=== PATIENT | male | born 1955 | race Hispanic/Latino ===

== ENCOUNTER 2017-02-06 15:46 | Inpatient (IN) | payer MEDICARE ==
[2017-02-06] MEDS ORDERED: Sodium Chloride 0.9% 1,000 ML IV SCH ×2 (16:45→18:00)
--- NOTE | 2017-02-06 17:04 | ED PDOC ---
HPI: General Adult Time Seen by Provider: 02/06/17 16:16 Chief Complaint (Nursing): Shortness Of Breath History Per: Patient History/Exam Limitations: no limitations Additional Complaint(s): Patient is a 61 yr old male who states that he was recently admitted to [facility] to the psych harman and while on psych harman, he was transferred to the medical unit for pneumonia. Pt left [facility] a couple of days ago; was given prescriptions (antibiotics) but did not fill them. Patient presents to the ED today c/o wanting to hurt himself (says he doesn't feel safe and when walking over bridge today, he did not see any cars below so he did not jump) and hearing voices. Patient is also c/o some SOB, cough with green phlegm and left sided chest pain when coughs. Patient had a temperature of 103F 2 days ago. Pt is not on his psych meds. Pt states that his last drink was a couple of hours ago. Pt also states that he has not taken his seizure medication (Dilantin) for a while. PMD: None Past Medical History Reviewed: Historical Data, Nursing Documentation, Vital Signs Vital Signs: Last Vital Signs Temp 98.2 F 02/06/17 18:28 Pulse 92 H 02/06/17 18:28 Resp 20 02/06/17 18:28 BP 110/66 02/06/17 18:28 Pulse Ox 95 02/06/17 18:37 - Medical History PMH: Anxiety, Arthritis, Bipolar Disorder, CVA, Depression, Hypercholesterolemia , Paranoia, Post Traumatic Stress Disorder, Seizures Denies: Diabetes Comment Only: Schizophrenia (per old chart but pt denies) - Surgical History Surgical History: Appendectomy, Endoscopy, Tonsillectomy - Family History Family History: States: Other Other Family History: Cancer - Social History Current smoker - smoking cessation education provided: No Alcohol: Social - Immunization History Hx Tetanus Toxoid Vaccination: Yes Hx Influenza Vaccination: Yes Hx Pneumococcal Vaccination: No - Home Medications Home Medications: Ambulatory Orders Medication Instructions Recorded Escitalopram [Lexapro] 10 mg PO DAILY #30 tab 02/06/17 Gabapentin [Neurontin] 300 mg PO TID #90 cap 02/06/17 Levofloxacin [Levaquin] 750 mg PO DAILY #5 tablet 02/06/17 Multivitamins [Hexavitamin] 1 tab PO DAILY tab 02/06/17 QUEtiapine [SEROquel] 200 mg PO HS #30 tab 02/06/17 QUEtiapine [Seroquel] 100 mg PO BRK #30 tab 02/06/17 Thiamine [Vitamin B1 Tab] 100 mg PO DAILY tab 02/06/17 - Allergies Allergies/Adverse Reactions: Allergies Allergy/AdvReac Type Severity Reaction Status Date / Time Penicillins Allergy convulsions Verified 10/12/16 12:35 Review of Systems Constitutional: Positive for: Fever Cardiovascular: Positive for: Chest Pain Respiratory: Positive for: Cough, Shortness of Breath Gastrointestinal: Negative for: Vomiting Physical Exam - Reviewed Nursing Documentation Reviewed: Yes Vital Signs Reviewed: Yes - Physical Exam Appears: Positive for: Well, Non-toxic Head Exam: Positive for: ATRAUMATIC Skin: Positive for: Normal Color Eye Exam: Positive for: Normal appearance Neck: Positive for: Normal Cardiovascular/Chest: Positive for: Regular Rate, Rhythm, Tachycardia Respiratory: Positive for: Other (decreased breath sounds to right mid lung field; also with decreased breath sounds left lung base) Gastrointestinal/Abdominal: Positive for: Normal Exam, Bowel Sounds, Soft Back: Positive for: Normal Inspection Rectal: Positive for: Deferred Extremity: Positive for: Normal ROM Lymphatic: Positive for: Deferred Neurologic/Psych: Positive for: Alert. Negative for: Motor/Sensory Deficits - Laboratory Results Result Diagrams: 02/06/17 17:20 02/06/17 17:20 - ECG O2 Sat by Pulse Oximetry: 95 Medical Decision Making Medical Decision Making: Initial Impression: Bipolar disorder with suicidality; Pneumonia -- but off antibiotics Initial Plan: Will check labs, crisis eval, one to one Progress Notes: 6:43 PM-Pt seen by crisis; recommends 1:1 for suicidality. Lactate 2.2--meets criteria for severe sepsis--will need to be admitted to medicine with a 1:1. Psych consult ordered. Dr. Nolan is here in the ED and agrees to admitting the patient to his service. Dr. Nolan is at bedside now evaluating the pt. Disposition - Clinical Impression Clinical Impression: Suicidal ideation, Severe sepsis, Pneumonia, Seizure disorder - Patient ED Disposition Is Patient to be Admitted: Yes - Disposition Disposition Time: 18:42 Condition: FAIR - Pt Status Changed To: Hospital Disposition Of: Inpatient - Admit Certification Admit to Inpatient:: After my assessment, the patient will require hospitalization for at least two midnights. This is because of the severity of symptoms shown, intensity of services needed, and/or the medical risk in this patient being treated as an outpatient.
[2017-02-06 17:25] LABS: BASO # 0.1 K/uL (0.0-0.2); BASO % 0.9 % (0.0-2.0); EOS # 0.3 K/uL (0.0-0.7); EOS % 2.6 % (0.0-4.0); HEMATOCRIT 39.1 % (35.0-51.0); LYMPH % 15.1 % (20.0-40.0); MEAN CELL VOLUME 93.3 fl (80.0-94.0); MEAN CORPUSCULAR HEMOGLOBIN 31.4 pg (27.0-31.0); MEAN CORPUSCULAR HGB CONC 33.7 g/dL (33.0-37.0); MEAN PLATELET VOLUME 7.3 fl (7.2-11.7); MONO # 1.1 K/uL (0.0-0.8); MONO % 8.3 % (0.0-10.0); NEUT # 9.5 K/uL (1.8-7.0); NEUT % 73.1 % (50.0-75.0); RED CELL DISTRIBUTION WIDTH 15.2 % (11.5-14.5)
[2017-02-06 17:36] LABS: ALCOHOL SERUM 223 mg/dl (0-10); ALKALINE PHOSPHATASE 103 U/L (38-126); ALT/SGPT 45 U/L (21-72); AST/SGOT 54 U/L (17-59); BILIRUBIN,TOTAL 0.2 mg/dl (0.2-1.3); BLOOD UREA NITROGEN 11 mg/dl (9-20); CALCIUM 9.1 mg/dL (8.4-10.2); CARBON DIOXIDE 21 mmol/L (22-30); CHLORIDE 108 mmol/L (98-107); GFR AFRICAN-AMERICAN > 60; GLUCOSE,RANDOM 102 mg/dL (75-110); POTASSIUM 4.1 MMOL/L (3.6-5.0); SODIUM 142 mmol/l (132-148); TOTAL PROTEIN 8.2 G/DL (6.3-8.2)
[2017-02-06 17:49] LABS: VENOUS BLOOD GAS BASE EXCESS -2.8 mmol/L (0.0-2.0); VENOUS BLOOD GAS PCO2 44 mmHg (40-60); VENOUS BLOOD PH 7.33 (7.32-7.43)
[2017-02-06] MEDS ORDERED: Ciprofloxacin 400mg/200ml D5W 400 MG/200 ML BAG IVPB ONE (18:05)
[2017-02-06] MEDS ORDERED: Ciprofloxacin 400mg/200ml D5W 400 MG/200 ML BAG IVPB STA (18:05)
[2017-02-06] MEDS ORDERED: Aztreonam 2 GM in Sodium Chloride 0.9% 100 ML IVPB STA (18:05)
[2017-02-06] MEDS ORDERED: Phenytoin 100 mg/2 ml Inj IVP STA ×2 (18:27→20:01)
[2017-02-06 19:30] VITALS: BMI 25.8
[2017-02-06] MEDS ORDERED: Phenytoin 100 mg/2 ml Inj IVPB STA (19:56)
[2017-02-06] MEDS ORDERED: PHENYTOIN IVP ONE (20:15)
[2017-02-06] MEDS ORDERED: SODIUM CHLORIDE 0.9% IVP ONE (20:15)
[2017-02-06 21:11] LABS: VENOUS BLOOD GAS BASE EXCESS -2.6 mmol/L (0.0-2.0); VENOUS BLOOD GAS PCO2 46 mmHg (40-60); VENOUS BLOOD PH 7.32 (7.32-7.43)
[2017-02-06] MEDS: Sodium Chloride 0.45% 1,000 ML IV SCH (23:35)
--- NOTE | 2017-02-07 00:19 | CP.PCM.PN ---
Subjective - Date & Time of Evaluation Date of Evaluation: 02/06/17 Time of Evaluation: 17:30 Objective - Vital Signs/Intake and Output Vital Signs (last 24 hours): Temp Pulse Resp BP Pulse Ox 98.2 F 88 20 114/69 92 L 02/06/17 22:43 02/06/17 22:43 02/06/17 22:43 02/06/17 22:43 02/06/17 22:10 - Medications Medications: Current Medications Chlordiazepoxide (Librium) 25 mg PO Q8 [facility] OF [facility] Enoxaparin Sodium (Lovenox) 40 mg SC DAILY [facility] PRN Reason: Protocol Escitalopram Oxalate (Lexapro) 10 mg PO DAILY [facility] Gabapentin (Neurontin) 300 mg PO TID ON [facility] Sodium Chloride (Sodium Chloride 0.45%) 1,000 mls @ 100 mls/hr IV .Q10H ON [facility] OF [facility] Stop: 02/07/17 23:01 Last Admin: 02/06/17 23:35 Dose: 100 mls/hr Aztreonam 1 gm/ Sodium (Chloride) 100 mls @ 100 mls/hr IVPB Q8 [facility] Azithromycin 500 mg/ Sodium (Chloride) 250 mls @ 250 mls/hr IVPB DAILY [facility] Lorazepam (Ativan) 2 mg IVP Q6 PRN PRN Reason: Seizure activity Multivitamins/Minerals (Therapeutic-M Tab) 1 tab PO DAILY [facility] Phenytoin Sodium (Dilantin) 100 mg PO TID [facility] Quetiapine Fumarate (Seroquel) 100 mg PO BRK [facility] Quetiapine Fumarate (Seroquel) 200 mg PO HS [facility] Last Admin: 02/06/17 23:34 Dose: 200 mg Thiamine HCl (Vitamin B1 Tab) 100 mg PO DAILY [facility]
--- NOTE | 2017-02-07 00:21 | CP.PCM.HP ---
Past Patient History - Infectious Disease Hx of Infectious Diseases: None - Tetanus Immunizations Tetanus Immunization: Unknown - Past Medical History & Family History Past Medical History?: Yes - Past Social History Alcohol: Social - CARDIAC Hx Cardiac Disorders: Yes - PULMONARY Hx Respiratory Disorders: Yes - NEUROLOGICAL Hx Seizures: Yes - HEENT Hx HEENT Problems: No - RENAL Hx Chronic Kidney Disease: No - ENDOCRINE/METABOLIC Hx Endocrine Disorders: No - HEMATOLOGICAL/ONCOLOGICAL Hx Human Immunodeficiency Virus (HIV): No - INTEGUMENTARY Hx Dermatological Problems: No (no bite berger 02-03-2017) Other/Comment: has bite berger on upper exts from "ants". sts [place] and woke up with ants on his arms. sts it is itchy. - MUSCULOSKELETAL/RHEUMATOLOGICAL Hx Arthritis: Yes - GASTROINTESTINAL Hx Gastrointestinal Disorders: Yes Hx Bowel Surgery: Yes (from [email or web address] HX Swallowing Problems: Yes Other/Comment: hep c - GENITOURINARY/GYNECOLOGICAL Hx Sexually Transmitted Disorders: No - PSYCHIATRIC Hx Psychophysiologic Disorder: Yes - SURGICAL HISTORY Hx Appendectomy: Yes Hx Tonsillectomy: Yes - ANESTHESIA Hx Anesthesia: Yes Hx Anesthesia Reactions: No Hx Malignant Hyperthermia: No Meds Allergies/Adverse Reactions: Allergies Allergy/AdvReac Type Severity Reaction Status Date / Time Penicillins Allergy convulsions Verified 10/12/16 12:35 Results - Vital Signs Recent Vital Signs: Last Vital Signs Temp 98.2 F 02/06/17 22:43 Pulse 88 02/06/17 22:43 Resp 20 02/06/17 22:43 BP 114/69 02/06/17 22:43 Pulse Ox 92 L 02/06/17 22:10 - Labs Result Diagrams: 02/06/17 17:20 02/06/17 17:20 Labs: Laboratory Results - last 24 hr 02/06/17 21:09 pO2 23 L VBG pH 7.32 VBG pCO2 46 VBG HCO3 21.2 VBG Total CO2 25.1 VBG O2 Sat (Calc) 43.1 VBG Base Excess -2.6 L VBG Potassium 3.6 Sodium 143.0 Chloride 112.0 H Glucose 86 Lactate 1.5 FiO2 21.0 Venous Blood Potassium 3.6
[2017-02-07] MEDS: Aztreonam 1 GM in Sodium Chloride 0.9% 100 ML IVPB SCH ×3 (00:51→16:00)
--- NOTE | 2017-02-07 07:54 | RAD ---
PROCEDURE: CHEST RADIOGRAPH, 1 VIEW HISTORY: SOB; diagnosed w/ pneumonia recently but left AMA COMPARISON: None available. FINDINGS: LUNGS: Small left lower lobe infiltrate. PLEURA: No pneumothorax or pleural fluid seen. CARDIOVASCULAR: Normal. OSSEOUS STRUCTURES: No significant abnormalities. VISUALIZED UPPER ABDOMEN: Normal. OTHER FINDINGS: None. IMPRESSION: Small left lower lobe infiltrate.
[2017-02-07 08:27] LABS: BASO # 0.1 K/uL (0.0-0.2); EOS # 0.4 K/uL (0.0-0.7); EOS % 4.6 % (0.0-4.0); LYMPH # 1.5 K/uL (1.0-4.3); LYMPH % 20.4 % (20.0-40.0); MEAN CELL VOLUME 92.8 fl (80.0-94.0); MEAN CORPUSCULAR HEMOGLOBIN 31.7 pg (27.0-31.0); MEAN CORPUSCULAR HGB CONC 34.2 g/dL (33.0-37.0); MEAN PLATELET VOLUME 7.5 fl (7.2-11.7); MONO # 0.8 K/uL (0.0-0.8); MONO % 10.6 % (0.0-10.0); NEUT # 4.8 K/uL (1.8-7.0); NEUT % 63.4 % (50.0-75.0); NRBC % 0.1 % (0.0-0.0); RED CELL DISTRIBUTION WIDTH 15.2 % (11.5-14.5); WHITE BLOOD COUNT 7.6 K/uL (4.8-10.8)
[2017-02-07 08:36] LABS: BLOOD UREA NITROGEN 9 mg/dl (9-20); CALCIUM 8.8 mg/dL (8.4-10.2); CARBON DIOXIDE 23 mmol/L (22-30); CHLORIDE 108 mmol/L (98-107); GFR AFRICAN-AMERICAN > 60; GLUCOSE,RANDOM 89 mg/dL (75-110); SODIUM 141 mmol/l (132-148)
[2017-02-07] MEDS ORDERED: Patient's Own Med (Multivitamins [Hexavitamin] 1 TAB) PO SCH (09:00)
[2017-02-07 09:02] LABS: THYROID STIMULATING HORMONE 0.95 mIU/ML (0.46-4.68)
[2017-02-07] MEDS: Enoxaparin 40 mg Syringe SC SCH (09:38)
[2017-02-07] MEDS: Multivitamin With Minerals Tab PO SCH (09:39)
[2017-02-07] MEDS: Sodium Chloride 0.45% 1,000 ML IV SCH ×2 (09:39→18:17)
[2017-02-07] MEDS: Azithromycin 500 MG in Sodium Chloride 0.9% 250 ML IVPB SCH (09:40)
--- NOTE | 2017-02-07 16:34 | CP.PCM.PN ---
Subjective - Date & Time of Evaluation Date of Evaluation: 02/07/17 Time of Evaluation: 16:30 - Subjective Subjective: ID NOTE CHART REVIEWED ,LABS ORDERED HAVE ADDED CLINDAMYCIN TO RX WILL AWAIT F/U LABS AND CULTURES FOR FURTHER RX Objective - Vital Signs/Intake and Output Vital Signs (last 24 hours): Temp Pulse Resp BP Pulse Ox 98.1 F 81 18 97/58 L 95 02/07/17 13:00 02/07/17 13:00 02/07/17 13:00 02/07/17 13:00 02/07/17 13:00 - Medications Medications: Current Medications Chlordiazepoxide (Librium) 25 mg PO Q8 [facility] Last Admin: 02/07/17 09:47 Dose: 25 mg Enoxaparin Sodium (Lovenox) 40 mg SC DAILY [facility] PRN Reason: Protocol Last Admin: 02/07/17 09:38 Dose: 40 mg Escitalopram Oxalate (Lexapro) 10 mg PO DAILY [facility] Last Admin: 02/07/17 09:38 Dose: 10 mg Gabapentin (Neurontin) 300 mg PO TID [facility] Last Admin: 02/07/17 12:10 Dose: 300 mg Sodium Chloride (Sodium Chloride 0.45%) 1,000 mls @ 100 mls/hr IV .Q10H [facility] Stop: 02/07/17 23:01 Last Admin: 02/07/17 09:39 Dose: 100 mls/hr Aztreonam 1 gm/ Sodium (Chloride) 100 mls @ 100 mls/hr IVPB Q8 [facility] Last Admin: 02/07/17 09:37 Dose: 100 mls/hr Azithromycin 500 mg/ Sodium (Chloride) 250 mls @ 250 mls/hr IVPB DAILY [facility] Last Admin: 02/07/17 09:40 Dose: 250 mls/hr Clindamycin Phosphate 600 mg/ (Sodium Chloride) 104 mls @ 104 mls/hr IVPB Q8 [facility] Lorazepam (Ativan) 2 mg IVP Q6 PRN PRN Reason: Seizure activity Multivitamins/Minerals (Therapeutic-M Tab) 1 tab PO DAILY [facility] Last Admin: 02/07/17 09:39 Dose: 1 tab Phenytoin Sodium (Dilantin) 100 mg PO TID [facility] Last Admin: 02/07/17 12:10 Dose: 100 mg Quetiapine Fumarate (Seroquel) 100 mg PO BRK [facility] Last Admin: 02/07/17 09:00 Dose: 100 mg Quetiapine Fumarate (Seroquel) 200 mg PO HS [facility] Last Admin: 02/06/17 23:34 Dose: 200 mg Thiamine HCl (Vitamin B1 Tab) 100 mg PO DAILY [facility] Last Admin: 02/07/17 09:39 Dose: 100 mg - Labs Labs: 02/07/17 06:00 02/07/17 06:00
[2017-02-07] MEDS: Clindamycin 600 MG in Sodium Chloride 0.9% 100 ML IVPB SCH (16:55)
--- NOTE | 2017-02-07 17:25 | CP.PCM.PN ---
Subjective - Date & Time of Evaluation Date of Evaluation: 02/07/17 Time of Evaluation: 17:30 Objective - Vital Signs/Intake and Output Vital Signs (last 24 hours): Temp Pulse Resp BP Pulse Ox 98.4 F 80 18 106/62 98 02/07/17 16:00 02/07/17 16:00 02/07/17 16:00 02/07/17 16:00 02/07/17 16:00 - Medications Medications: Current Medications Chlordiazepoxide (Librium) 25 mg PO Q8 [facility] Last Admin: 02/07/17 16:54 Dose: 25 mg Enoxaparin Sodium (Lovenox) 40 mg SC DAILY [facility] PRN Reason: Protocol Last Admin: 02/07/17 09:38 Dose: 40 mg Escitalopram Oxalate (Lexapro) 10 mg PO DAILY [facility] Last Admin: 02/07/17 09:38 Dose: 10 mg Gabapentin (Neurontin) 300 mg PO TID [facility] Last Admin: 02/07/17 16:52 Dose: 300 mg Sodium Chloride (Sodium Chloride 0.45%) 1,000 mls @ 100 mls/hr IV .Q10H [facility] Stop: 02/07/17 23:01 Last Admin: 02/07/17 09:39 Dose: 100 mls/hr Aztreonam 1 gm/ Sodium (Chloride) 100 mls @ 100 mls/hr IVPB Q8 [facility] Last Admin: 02/07/17 16:00 Dose: 100 mls/hr Azithromycin 500 mg/ Sodium (Chloride) 250 mls @ 250 mls/hr IVPB DAILY [facility] Last Admin: 02/07/17 09:40 Dose: 250 mls/hr Clindamycin Phosphate 600 mg/ (Sodium Chloride) 104 mls @ 104 mls/hr IVPB Q8 [facility] Last Admin: 02/07/17 16:55 Dose: 104 mls/hr Lorazepam (Ativan) 2 mg IVP Q6 PRN PRN Reason: Seizure activity Multivitamins/Minerals (Therapeutic-M Tab) 1 tab PO DAILY [facility] Last Admin: 02/07/17 09:39 Dose: 1 tab Phenytoin Sodium (Dilantin) 100 mg PO TID [facility] Last Admin: 02/07/17 16:52 Dose: 100 mg Quetiapine Fumarate (Seroquel) 100 mg PO BRK [facility] Last Admin: 02/07/17 09:00 Dose: 100 mg Quetiapine Fumarate (Seroquel) 200 mg PO [facility] Last Admin: 02/06/17 23:34 Dose: 200 mg Thiamine HCl (Vitamin B1 Tab) 100 mg PO DAILY [facility] Last Admin: 02/07/17 09:39 Dose: 100 mg - Labs Labs: 02/07/17 06:00 02/07/17 06:00
[2017-02-08] MEDS: Clindamycin 600 MG in Sodium Chloride 0.9% 100 ML IVPB SCH ×3 (00:23→17:37)
[2017-02-08] MEDS: Aztreonam 1 GM in Sodium Chloride 0.9% 100 ML IVPB SCH ×3 (01:44→16:31)
[2017-02-08] MEDS: Multivitamin With Minerals Tab PO SCH (08:24)
[2017-02-08] MEDS: Enoxaparin 40 mg Syringe SC SCH (08:24)
--- NOTE | 2017-02-08 08:56 | CARD ---
APPROVED REPORT EKG Measurement Heart [id number] <Conclusion> Sinus tachycardia Minimal voltage criteria for LVH, may be normal variant Borderline ECG
--- NOTE | 2017-02-08 09:43 | CP.PCM.CON ---
History of Present Illness - History of Present Illness History of Present Illness: CC: Psychiatry consult called for evaluation of depression and suicidal ideation HPI: 61 y/o male, w/ self reported h/o bipolar disorder, presents w/ active PNA, depressed mood, suicidal ideation w/ plan and auditory hallucinations. During initial ER assessment patient reported that he was walking toward [place] and when [place] was [place] he felt like jumping but when he look down he noticed that it was no cars, for him to jump in front of the cars. Pt. reports feeling very depressed, having auditory hallucinations of someone laughing, denied commands. He continues to report active suicidal ideation and is seeking treatment. He reports a history of yony in the past, but denies current manic symptoms. He reports chronic severe alcohol abuse and would like help with ETOH cessation. PPHx: Pt. was admitted at [facility] from February 03 thru Feb 06 2017. Multiple psychiatric admission and rehabilitations. Pt. was admitted to psych > 20 times in the past and he admits to 3 suicide attempts in the past PMHx: Hepatitis C, Arthritis, Chronic pain All: PCN FHx: Mother w/ Alzheimer dz, Father with "mood problems" and Brother with mental retardation. SHx: Father of 3 adults children that have no contact with patient for the past 10 years. No close family as patient stated he have two siblings that also have no contact with patient for many years. Daily ETOH use (1 quart vodka a day + beer). Denies drugs/cig use. Legal charges in the past, such as DWI and possession of stolen property. On SSD. MSE: A + O x 3, calm/cooperative. Good eye contact. psychomotor normal. speech normal. thought process-linear coherent. mood- depressed, affect- constricted/ depressed. +AH of laughing. No VH. +SI w/plan. No HI. Fair I/J. Impression: 61 yo male w/ Bipolar disorder w/ psychosis vs. MDD w/ psychosis, reporting depression and auditory hallucinations, continues to report active suicidal ideation w/ plan, requires inpatient psychiatric admission for treatment and stabilization when he is medically stable. Recommendations: -1:1 for safety as the patient is reporting active suicidal ideation w/ plan -Voluntary admission to psychiatry when he is medically stable -Change Seroquel to 400 mg PO HS -Stop Lexapro as the patient reports that he does not normally take this medications Past Patient History - Infectious Disease Hx of Infectious Diseases: None - Tetanus Immunizations Tetanus Immunization: Unknown - Past Medical History & Family History Past Medical History?: Yes - Past Social History Alcohol: Social - CARDIAC Hx Cardiac Disorders: Yes - PULMONARY Hx Respiratory Disorders: Yes - NEUROLOGICAL Hx Seizures: Yes - HEENT Hx HEENT Problems: No - RENAL Hx Chronic Kidney Disease: No - ENDOCRINE/METABOLIC Hx Endocrine Disorders: No - HEMATOLOGICAL/ONCOLOGICAL Hx Human Immunodeficiency Virus (HIV): No - INTEGUMENTARY Hx Dermatological Problems: No (no bite berger 02-03-2017) Other/Comment: has bite berger on upper exts from "ants". sts [place] and [place] with ants on his arms. sts it is itchy. - MUSCULOSKELETAL/RHEUMATOLOGICAL Hx Arthritis: Yes - GASTROINTESTINAL Hx Gastrointestinal Disorders: Yes Hx Bowel Surgery: Yes (from [facility]) HX Swallowing Problems: Yes Other/Comment: hep c - GENITOURINARY/GYNECOLOGICAL Hx Sexually Transmitted Disorders: No - PSYCHIATRIC Hx Psychophysiologic Disorder: Yes - SURGICAL HISTORY Hx Appendectomy: Yes Hx Tonsillectomy: Yes - ANESTHESIA Hx Anesthesia: Yes Hx Anesthesia Reactions: No Hx Malignant Hyperthermia: No Meds Allergies/Adverse Reactions: Allergies Allergy/AdvReac Type Severity Reaction Status Date / Time Penicillins Allergy convulsions Verified 10/12/16 12:35 - Medications Medications: Current Medications Chlordiazepoxide (Librium) 25 mg PO Q8 [facility] Last Admin: 02/08/17 08:23 Dose: 25 mg Enoxaparin Sodium (Lovenox) 40 mg SC DAILY [facility] PRN Reason: Protocol Last Admin: 02/08/17 08:24 Dose: 40 mg Escitalopram Oxalate (Lexapro) 10 mg PO DAILY [facility] Last Admin: 02/08/17 08:24 Dose: 10 mg Gabapentin (Neurontin) 300 mg PO TID [facility] Last Admin: 02/08/17 08:24 Dose: 300 mg Aztreonam 1 gm/ Sodium (Chloride) 100 mls @ 100 mls/hr IVPB Q8 [facility] Last Admin: 02/08/17 08:23 Dose: 100 mls/hr Azithromycin 500 mg/ Sodium (Chloride) 250 mls @ 250 mls/hr IVPB DAILY [facility] Last Admin: 02/07/17 09:40 Dose: 250 mls/hr Clindamycin Phosphate 600 mg/ (Sodium Chloride) 104 mls @ 104 mls/hr IVPB Q8 [facility] Last Admin: 02/08/17 09:26 Dose: 104 mls/hr Lorazepam (Ativan) 2 mg IVP Q6 PRN PRN Reason: Seizure activity Multivitamins/Minerals (Therapeutic-M Tab) 1 tab PO DAILY [facility] Last Admin: 02/08/17 08:24 Dose: 1 tab Phenytoin Sodium (Dilantin) 100 mg PO TID [facility] Last Admin: 02/08/17 08:23 Dose: 100 mg Quetiapine Fumarate (Seroquel) 100 mg PO BRK [facility] Last Admin: 02/08/17 08:24 Dose: 100 mg Quetiapine Fumarate (Seroquel) 200 mg PO HS [facility] Last Admin: 02/07/17 21:01 Dose: 200 mg Thiamine HCl (Vitamin B1 Tab) 100 mg PO DAILY [facility] Last Admin: 02/08/17 08:25 Dose: 100 mg Results - Vital Signs Recent Vital Signs: Last Vital Signs Temp 97.9 F 02/08/17 08:04 Pulse 67 02/08/17 08:04 Resp 18 02/08/17 08:04 BP 107/68 02/08/17 08:04 Pulse Ox 95 02/08/17 08:04 - Labs Result Diagrams: 02/07/17 06:00 02/07/17 06:00 Labs: Laboratory Results - last 24 hr 02/07/17 12:30 Cold Agglutinins Negative
[2017-02-08] MEDS: Azithromycin 500 MG in Sodium Chloride 0.9% 250 ML IVPB SCH (10:00)
--- NOTE | 2017-02-08 21:30 | CP.PCM.PN ---
Subjective - Date & Time of Evaluation Date of Evaluation: 02/08/17 Time of Evaluation: 18:30 Objective - Vital Signs/Intake and Output Vital Signs (last 24 hours): Temp Pulse Resp BP Pulse Ox 98.5 F 76 20 122/80 95 02/08/17 19:16 02/08/17 19:16 02/08/17 19:16 02/08/17 19:16 02/08/17 19:16 - Medications Medications: Current Medications Chlordiazepoxide (Librium) 25 mg PO Q8 [facility] Last Admin: 02/08/17 16:37 Dose: 25 mg Enoxaparin Sodium (Lovenox) 40 mg SC DAILY [facility] PRN Reason: Protocol Last Admin: 02/08/17 08:24 Dose: 40 mg Escitalopram Oxalate (Lexapro) 10 mg PO DAILY [facility] Last Admin: 02/08/17 08:24 Dose: 10 mg Gabapentin (Neurontin) 300 mg PO TID [facility] Last Admin: 02/08/17 16:31 Dose: 300 mg Aztreonam 1 gm/ Sodium (Chloride) 100 mls @ 100 mls/hr IVPB Q8 [facility] Last Admin: 02/08/17 16:31 Dose: 100 mls/hr Azithromycin 500 mg/ Sodium (Chloride) 250 mls @ 250 mls/hr IVPB DAILY [facility] Last Admin: 02/08/17 10:00 Dose: 250 mls/hr Clindamycin Phosphate 600 mg/ (Sodium Chloride) 104 mls @ 104 mls/hr IVPB Q8 [facility] Last Admin: 02/08/17 17:37 Dose: 104 mls/hr Lorazepam (Ativan) 2 mg IVP Q6 PRN PRN Reason: Seizure activity Multivitamins/Minerals (Therapeutic-M Tab) 1 tab PO DAILY [facility] Last Admin: 02/08/17 08:24 Dose: 1 tab Phenytoin Sodium (Dilantin) 100 mg PO TID [facility] Last Admin: 02/08/17 16:31 Dose: 100 mg Quetiapine Fumarate (Seroquel) 100 mg PO BRK [facility] Last Admin: 02/08/17 08:24 Dose: 100 mg Quetiapine Fumarate (Seroquel) 200 mg PO HS [facility] Last Admin: 02/08/17 21:24 Dose: 200 mg Thiamine HCl (Vitamin B1 Tab) 100 mg PO DAILY [facility] Last Admin: 02/08/17 08:25 Dose: 100 mg - Labs Labs: 02/07/17 06:00 02/07/17 06:00
[2017-02-09] MEDS: Clindamycin 600 MG in Sodium Chloride 0.9% 100 ML IVPB SCH ×3 (00:41→16:39)
[2017-02-09] MEDS: Aztreonam 1 GM in Sodium Chloride 0.9% 100 ML IVPB SCH ×3 (00:41→16:39)
[2017-02-09] MEDS: Multivitamin With Minerals Tab PO SCH (09:07)
[2017-02-09] MEDS: Azithromycin 500 MG in Sodium Chloride 0.9% 250 ML IVPB SCH (10:03)
[2017-02-09] MEDS: Enoxaparin 40 mg Syringe SC SCH (10:06)
[2017-02-09 11:23] LABS: HEMATOCRIT 37.8 % (35.0-51.0); MEAN CELL VOLUME 92.4 fl (80.0-94.0); MEAN CORPUSCULAR HEMOGLOBIN 31.1 pg (27.0-31.0); MEAN CORPUSCULAR HGB CONC 33.7 g/dL (33.0-37.0); RED CELL DISTRIBUTION WIDTH 15.1 % (11.5-14.5); WHITE BLOOD COUNT 6.9 K/uL (4.8-10.8)
[2017-02-10] MEDS: Clindamycin 600 MG in Sodium Chloride 0.9% 100 ML IVPB SCH ×2 (09:42→09:49)
[2017-02-10] MEDS: Aztreonam 1 GM in Sodium Chloride 0.9% 100 ML IVPB SCH (09:51)
[2017-02-10] MEDS: Multivitamin With Minerals Tab PO SCH (09:52)
[2017-02-10] MEDS: Enoxaparin 40 mg Syringe SC SCH (09:53)
--- NOTE | 2017-02-10 11:01 | CP.PCM.PN ---
Subjective - Date & Time of Evaluation Date of Evaluation: 02/09/17 Time of Evaluation: 18:10 Objective - Vital Signs/Intake and Output Vital Signs (last 24 hours): Temp Pulse Resp BP Pulse Ox 98.4 F 74 18 120/72 95 02/10/17 08:48 02/10/17 08:48 02/10/17 08:48 02/10/17 08:48 02/10/17 08:48 - Medications Medications: Current Medications Chlordiazepoxide (Librium) 25 mg PO Q8 [facility] Last Admin: 02/10/17 09:58 Dose: 25 mg Escitalopram Oxalate (Lexapro) 10 mg PO DAILY [facility] Last Admin: 02/10/17 09:52 Dose: 10 mg Gabapentin (Neurontin) 300 mg PO TID [facility] Last Admin: 02/10/17 09:52 Dose: 300 mg Aztreonam 1 gm/ Sodium (Chloride) 100 mls @ 100 mls/hr IVPB Q8 [facility] Last Admin: 02/10/17 09:51 Dose: 100 mls/hr Azithromycin 500 mg/ Sodium (Chloride) 250 mls @ 250 mls/hr IVPB DAILY [facility] Last Admin: 02/09/17 10:03 Dose: 250 mls/hr Clindamycin Phosphate 600 mg/ (Sodium Chloride) 104 mls @ 104 mls/hr IVPB Q8 [facility] Last Admin: 02/10/17 09:49 Dose: 104 mls/hr Lorazepam (Ativan) 2 mg IVP Q6 PRN PRN Reason: Seizure activity Multivitamins/Minerals (Therapeutic-M Tab) 1 tab PO DAILY [facility] Last Admin: 02/10/17 09:52 Dose: 1 tab Phenytoin Sodium (Dilantin) 100 mg PO TID [facility] Last Admin: 02/10/17 09:52 Dose: 100 mg Quetiapine Fumarate (Seroquel) 100 mg PO BRK [facility] Last Admin: 02/10/17 08:30 Dose: 100 mg Quetiapine Fumarate (Seroquel) 200 mg PO HS [facility] Last Admin: 02/09/17 21:11 Dose: 200 mg Thiamine HCl (Vitamin B1 Tab) 100 mg PO DAILY [facility] Last Admin: 02/10/17 09:52 Dose: 100 mg - Labs Labs: 02/09/17 11:20 02/07/17 06:00
[2017-02-10 12:10] VITALS: BP 125/69; PULSE 93; RESP 20; TEMP 98.2; O2SAT 99
[2017-02-10] MEDS: Azithromycin 500 MG in Sodium Chloride 0.9% 250 ML IVPB SCH (12:10)
--- NOTE | 2017-02-10 23:12 | CP.PCM.DIS ---
Provider - Provider Date of Admission: 02/06/17 18:14 Attending physician: Emily Nolan MD Time Spent in preparation of Discharge (in minutes): 25 Hospital Course - Lab Results Lab Results: Most Recent Lab Values WBC 6.9 K/uL (4.8-10.8) 02/09/17 11:20 RBC 4.09 Mil/uL (4.40-5.90) L 02/09/17 11:20 Hgb 12.7 g/dL (12.0-18.0) 02/09/17 11:20 Hct 37.8 % (35.0-51.0) 02/09/17 11:20 MCV 92.4 fl (80.0-94.0) 02/09/17 11:20 MCH 31.1 pg (27.0-31.0) H 02/09/17 11:20 MCHC 33.7 g/dL (33.0-37.0) 02/09/17 11:20 RDW 15.1 % (11.5-14.5) H 02/09/17 11:20 Plt Count 307 K/uL (130-400) 02/09/17 11:20 MPV 7.5 fl (7.2-11.7) 02/07/17 06:00 Neut % (Auto) 63.4 % (50.0-75.0) 02/07/17 06:00 Lymph % (Auto) 20.4 % (20.0-40.0) 02/07/17 06:00 [place] % (Auto) 10.6 % (0.0-10.0) H 02/07/17 06:00 Eos % (Auto) 4.6 % (0.0-4.0) H 02/07/17 06:00 Baso % (Auto) 1.0 % (0.0-2.0) 02/07/17 06:00 Neut # 4.8 K/uL (1.8-7.0) 02/07/17 06:00 Lymph # 1.5 K/uL (1.0-4.3) 02/07/17 06:00 [place] # 0.8 K/uL (0.0-0.8) 02/07/17 06:00 Eos # 0.4 K/uL (0.0-0.7) 02/07/17 06:00 Baso # 0.1 K/uL (0.0-0.2) 02/07/17 06:00 pO2 23 mm/Hg (30-55) L 02/06/17 21:09 VBG pH 7.32 (7.32-7.43) 02/06/17 21:09 VBG pCO2 46 mmHg (40-60) 02/06/17 21:09 VBG HCO3 21.2 mmol/L 02/06/17 21:09 VBG Total CO2 25.1 mmol/L (22-28) 02/06/17 21:09 VBG O2 Sat (Calc) 43.1 % (40-65) 02/06/17 21:09 VBG Base Excess -2.6 mmol/L (0.0-2.0) L 02/06/17 21:09 VBG Potassium 3.6 mmol/L (3.6-5.2) 02/06/17 21:09 Sodium 143.0 mmol/L (132-148) 02/06/17 21:09 Chloride 112.0 mmol/L (98-107) H 02/06/17 21:09 Glucose 86 mg/dL (75-110) 02/06/17 21:09 Lactate 1.5 mmol/L (0.7-2.1) 02/06/17 21:09 FiO2 21.0 % 02/06/17 21:09 Sodium 141 mmol/l (132-148) 02/07/17 06:00 Potassium 4.0 MMOL/L (3.6-5.0) 02/07/17 06:00 Chloride 108 mmol/L (98-107) H 02/07/17 06:00 Carbon Dioxide 23 mmol/L (22-30) 02/07/17 06:00 Anion Gap 14 (10-20) 02/07/17 06:00 BUN 9 mg/dl (9-20) 02/07/17 06:00 Creatinine 0.7 mg/dL (0.8-1.5) L 02/07/17 06:00 Est GFR ( Amer) > 60 02/07/17 06:00 Est GFR (Non-Af Amer) > 60 02/07/17 06:00 Random Glucose 89 mg/dL (75-110) 02/07/17 06:00 Calcium 8.8 mg/dL (8.4-10.2) 02/07/17 06:00 Total Bilirubin 0.2 mg/dl (0.2-1.3) 02/06/17 17:20 AST 54 U/L (17-59) 02/06/17 17:20 ALT 45 U/L (21-72) 02/06/17 17:20 Alkaline Phosphatase 103 U/L (38-126) 02/06/17 17:20 Total Creatine Kinase < 20 U/L (55-170) L 02/06/17 17:20 CK-MB (Mass) < 0.22 ng/mL (0.0-3.38) 02/06/17 17:20 Troponin I < 0.0120 ng/mL (0.00-0.120) 02/06/17 17:20 NT-Pro-B Natriuret Pep 91.5 pg/ml (0-900) 02/06/17 17:20 Total Protein 8.2 G/DL (6.3-8.2) 02/06/17 17:20 Albumin 4.0 g/dL (3.5-5.0) 02/06/17 17:20 Globulin 4.2 gm/dL (2.2-3.9) H 02/06/17 17:20 Albumin/Globulin Ratio 1.0 (1.0-2.1) 02/06/17 17:20 TSH 3rd Generation 0.95 mIU/ML (0.46-4.68) 02/07/17 06:00 Venous Blood Potassium 3.6 mmol/L (3.6-5.2) 02/06/17 21:09 Urine Opiates Screen Negative (NEGATIVE) 02/06/17 17:35 Urine Methadone Screen Negative (NEGATIVE) 02/06/17 17:35 Ur Barbiturates Screen Negative (NEGATIVE) 02/06/17 17:35 Phenytoin < 3.0 ug/ML (10-20) L 02/06/17 17:20 Ur Phencyclidine Scrn Negative (NEGATIVE) 02/06/17 17:35 Ur Amphetamines Screen Negative (NEGATIVE) 02/06/17 17:35 U Benzodiazepines Scrn Negative (NEGATIVE) 02/06/17 17:35 U Oth Cocaine Metabols Negative (NEGATIVE) 02/06/17 17:35 U Cannabinoids Screen Negative (NEGATIVE) 02/06/17 17:35 Alcohol, Quantitative 223 mg/dl (0-10) H 02/06/17 17:20 Cold Agglutinins Negative (NEGATIVE) 02/07/17 12:30 M.pneumoniae IgG Titer 4.57 (<=0.90) H 02/08/17 06:05 Mycoplasma pneumon IgG 4.23 (<=0.90) H 02/08/17 09:26 Mycoplasma pneumon IgM 175 U/mL (<770) 02/08/17 09:26 Discharge Exam - Head Exam Head Exam: ATRAUMATIC Discharge Plan - Discharge Medications Prescriptions: Aztreonam 1 Gm in NS 100mL [Azactam 1 gm] 1 gm IV Q8 #15 ml Clindamycin [Cleocin] 600 mg IV Q8 #15 vial Azithromycin 500MG/NS 250ml [Zithromax 500mg in NS] 500 mg IV DAILY #12 bag - Follow Up Plan Condition: FAIR Disposition: HOME/ ROUTINE Instructions: Bacterial Pneumonia (DC)
--- NOTE | 2017-02-12 10:57 | PQF GENQUE ---
Dr. An almendarez was admitted with shortness of breath. What is/are the principal diagnosis/diagnoses for this case? Thank you This form is a permanent part of the medical record Clarification of your documentation is requested to better reflect the severity of illness and intensity of treatment of your patient. Indicators present [] Specify: [] [] Specify: [] [] Specify: [] [] Specify: [] Location in the medical record that reflects the above clinical findings: [] Treatment Provided: [] PHYSICIAN'S RESPONSE Based on your medical judgment of the clinical indicators outlined above please clarify the following: [] Practitioner response [] If unable to determine, please check the box, sign and date. Present On Admission (POA) Indicator: [] Present at the time of admission [] Not present at the time of admission [] Clinically Undetermined In responding to this query, please exercise your independent professional judgment. The fact that a question is asked does not imply that any particular answer is desired or expected. Thank you for your clarification on this documentation. If you have any questions please call:[ ] * Thank you, [ ]Karissa Arriaga youth liaison officer NOEMÍ
== END 2017-02-10 13:31 | disposition home or self-care (01) | DRG 871 ==
LOC: H.ER 15:46 → H.ERHOLD 18:14 → H.TEL 22:09
PROVIDERS: ADMIT Internal Medicine; ATTEND Internal Medicine
DX: A41.9 Sepsis, unspecified organism (principal); J18.9 Pneumonia, unspecified organism; R45.851 Suicidal ideations; R65.20 Severe sepsis without septic shock; F31.9 Bipolar disorder, unspecified; E78.00 Pure hypercholesterolemia, unspecified; F43.10 Post-traumatic stress disorder, unspecified; Z86.73 Personal history of transient ischemic attack (TIA), and cerebral infarction without residual deficits; G40.909 Epilepsy, unspecified, not intractable, without status epilepticus; Z88.0 Allergy status to penicillin; F41.9 Anxiety disorder, unspecified; M19.90 Unspecified osteoarthritis, unspecified site; B19.20 Unspecified viral hepatitis C without hepatic coma; G89.29 Other chronic pain

== ENCOUNTER 2017-02-10 13:11 | Inpatient (IN) | payer MEDICARE ==
[2017-02-10 13:25] VITALS: BMI 24.7
[2017-02-10] MEDS ORDERED: Magnesium Hydroxide Susp 30 ml UD PO PRN (13:35)
[2017-02-10] MEDS ORDERED: Alum-Mag Hydrox-Simethicone Susp (30 mL) PO PRN (13:35)
[2017-02-10] MEDS ORDERED: DiphenhydrAMINE 50 mg/ml Inj IM PRN (13:35)
--- NOTE | 2017-02-10 13:42 | PCM.PSYCH ---
Initial Psychiatric Evaluation - Initial Psychiatric Evaluation Type of Admission: Voluntary Legal Status: Capacity Chief Complaint (in patient's own words): "I'm feeling suicidal" Patient's Reaction to Hospitalization: HPI: 61 y/o male, w/ self reported h/o bipolar disorder, presents w/ active PNA, depressed mood, suicidal ideation and auditory hallucinations. During initial ER assessment patient reported that he was walking toward [place] and when [place] was [place] he felt like jumping but when he look down he noticed that it was no cars, for him to jump in front of the cars. Pt. reports feeling very depressed, having auditory hallucinations of someone laughing, denied commands. He continues to have suicidal ideation w/o current plan/intent and is seeking treatment. He is goal oriented and would like attend alcohol rehab. He reports a history of yony in the past, but denies current manic symptoms. He reports chronic severe alcohol abuse and would like help with ETOH cessation. PPHx: Pt. was admitted at [facility] from February 03 thru Feb 06 2017. Multiple psychiatric admission and rehabilitations. Pt. was admitted to psych > 20 times in the past and he admits to 3 suicide attempts in the past PMHx: Hepatitis C, Arthritis, Chronic pain All: PCN FHx: Mother w/ Alzheimer dz, Father with "mood problems" and Brother with mental retardation. SHx: Father of 3 adults children that have no contact with patient for the past 10 years. No close family as patient stated he have two siblings that also have no contact with patient for many years. Daily ETOH use (1 quart vodka a day + beer). Denies drugs/cig use. Legal charges in the past, such as DWI and possession of stolen property. On SSD. Current Medications: Active Medications Generic Name Dose Route Start Last Admin Trade Name Freq PRN Reason Stop Dose Admin Acetaminophen 650 mg 02/10/17 13:35 Tylenol 325mg Tab PO Q4 PRN Pain, moderate (4-7) Al Hydrox/Mg Hydrox/Simethicone 30 ml 02/10/17 13:35 Maalox Plus 30 Ml PO Q4 PRN Dyspepsia Diphenhydramine HCl 50 mg 02/10/17 13:35 Benadryl IM Q6 PRN Extrapyramidal S/S Unable PO Diphenhydramine HCl 50 mg 02/10/17 13:35 Benadryl PO Q6 PRN Extrapyramidal Symptoms Haloperidol 5 mg 02/10/17 13:35 Haldol PO Q4 PRN Agitation Haloperidol Lactate 5 mg 02/10/17 13:35 Haldol IM Q4 PRN Agitation, Unable to Take PO Lorazepam 2 mg 02/10/17 13:35 Ativan IM Q4 PRN Anxiety/Agitation,Unable PO Lorazepam 2 mg 02/10/17 13:35 Ativan PO Q4 PRN Anxiety/Agitation Magnesium Hydroxide 30 ml 02/10/17 13:35 Milk Of Magnesia PO HS PRN Constipation Past Psychiatric History - Past Psychiatric History Previous Treatment History: Inpatient Pertinent Medical Hx (Current Medical&Sleep Prob, Allergies): Allergies Allergy/AdvReac Type Severity Reaction Status Date / Time Penicillins Allergy convulsions Verified 10/12/16 12:35 Azithromycin 500MG/NS 250ml [Zithromax 500mg in NS] 500 mg IV DAILY #12 bag Aztreonam 1 Gm in NS 100mL [Azactam 1 gm] 1 gm IV Q8 #15 ml 02/09/17 Clindamycin [Cleocin] 600 mg IV Q8 #15 vial 02/09/17 Enoxaparin [Lovenox] 40 mg SC DAILY syr 02/09/17 Escitalopram [Lexapro] 10 mg PO DAILY tab 02/09/17 Gabapentin [Neurontin] 300 mg PO TID cap 02/09/17 Multimineral/Multivitamin [Therapeutic-M Tab] 1 tab PO DAILY tab 02/09/17 Phenytoin, Extended [Dilantin] 100 mg PO TID cer 02/09/17 QUEtiapine [SEROquel] 200 mg PO HS tab 02/09/17 QUEtiapine [Seroquel] 100 mg PO BRK tab 02/09/17 Thiamine [Vitamin B1 Tab] 100 mg PO DAILY tab 02/09/17 chlordiazePOXIDE [Librium] 25 mg PO Q8 cap 02/09/17 Review of Systems - Review of Systems All systems: reviewed and no additional remarkable complaints except - Respiratory Respiratory: As Per HPI (Resolving PNA), Cough, Dyspnea, Dyspnea on Exertion, Chest Congestion - Psychiatric Psychiatric: As Per HPI, Depression, Hallucinations, Irritability, Mood Swings, Suicidal Ideation Mental Status Examination - Personal Presentation Personal Presentation: Looks stated age - Affect Affect: Constricted - Motor Activity Motor Activity: Calm - Reliability in Providing Information Reliability in Providing Information: Good - Speech Speech: Organized - Mood Mood: Depressed - Formal Thought Process Formal Thought Process: Hallucinations - Hallucinations/Delusions Hallucinations: Auditory - Obsessions/Compulsions Obsessions: No Compulsions: No - Cognitive Functions Orientation: Person, Place, Situation, Time Sensorium: Alert Attention/Concentration: Attentive Estimate of Intelligence: Average Judgement: Intact, as evidence by: Good judgement, Intact, as evidence by: Insight regarding need for hospitalization Memory: Recent intact, as evidence by: Ability to recall events of the day, Remote intact, as evidenced by: Abilit to recall sig. life events, Remote intact , as evidenced by: Ability to recall historical events - Risk Risk: Suicidal - Strength & Assets Inventory Strength & Assets Inventory: Cooperative - Limitations Limitations: Living alone DSM 5 DX - DSM 5 DSM 5 Diagnosis: Bipolar Disorder, Alcohol Use Disorder - Recommended/Plan of Treatment Treatment Recommendations and Plan of Treatment: 61 yo male w/ h/o bipolar disorder, chronic ETOH abuse, presents w/ suicidal ideation and worsening depression in the context of ETOH abuse; patient also continues to be treated for a resolving PNA. -Admit to geropsychiatry -Thiamine, Folate -Increase Seroquel to a total of 400 mg PO Daily -Start [place] 300 mg PO Daily, patient reports that he took this in the past, in addition to Seroquel -Individual, group and milieu tx -Internal medicine consult re: continued tx for PNA -NO 1:1 at this time, patient is able to contract for safety Projected ELOS: 5-7 days Discharge Plan and Discharge Criteria: Discharge when psychiatrically stable
[2017-02-10] MEDS ORDERED: Aztreonam 1 GM in Sodium Chloride 0.9% 100 ML IV SCH (15:15)
[2017-02-10] MEDS ORDERED: Clindamycin 600 MG in Sodium Chloride 0.9% 100 ML IVPB SCH (15:15)
--- NOTE | 2017-02-10 16:39 | CP.PCM.PN ---
Subjective - Date & Time of Evaluation Date of Evaluation: 02/10/17 Time of Evaluation: 16:38 - Subjective Subjective: I D FOLLOWUP NOTE WILL ORDER CXR WILL REVIEW ANTIBIOTIC RX AWAIT MYCOPLASMA IGM Objective - Vital Signs/Intake and Output Vital Signs (last 24 hours): Temp Pulse Resp BP Pulse Ox 97.9 F 81 20 107/66 02/10/17 16:08 02/10/17 16:08 02/10/17 16:08 02/10/17 16:08 - Medications Medications: Current Medications Acetaminophen (Tylenol 325mg Tab) 650 mg PO Q4 PRN PRN Reason: Pain, moderate (4-7) Al Hydrox/Mg Hydrox/Simethicone (Maalox Plus 30 Ml) 30 ml PO Q4 PRN PRN Reason: Dyspepsia Chlordiazepoxide (Librium) 25 mg PO Q12 REAL Diphenhydramine HCl (Benadryl) 50 mg IM Q6 PRN PRN Reason: Extrapyramidal S/S Unable PO Diphenhydramine HCl (Benadryl) 50 mg PO Q6 PRN PRN Reason: Extrapyramidal Symptoms Enoxaparin Sodium (Lovenox) 40 mg SC DAILY REAL PRN Reason: Protocol Gabapentin (Neurontin) 300 mg PO TID REAL Haloperidol (Haldol) 5 mg PO Q4 PRN PRN Reason: Agitation Haloperidol Lactate (Haldol) 5 mg IM Q4 PRN PRN Reason: Agitation, Unable to Take PO Azithromycin 500 mg/ Sodium (Chloride) 250 mls @ 125 mls/hr IVPB DAILY [facility] Clindamycin Phosphate 600 mg/ (Sodium Chloride) 104 mls @ 104 mls/hr IVPB Q8H REAL Aztreonam 1 gm/ Sodium (Chloride) 100 mls @ 100 mls/hr IV Q8H REAL [place] Carbonate ([place] Carbonate 300mg) 300 mg PO DAILY REAL Lorazepam (Ativan) 2 mg IM Q4 PRN PRN Reason: Anxiety/Agitation,Unable PO Lorazepam (Ativan) 2 mg PO Q4 PRN PRN Reason: Anxiety/Agitation Magnesium Hydroxide (Milk Of Magnesia) 30 ml PO HS PRN PRN Reason: Constipation Multivitamins/Minerals (Therapeutic-M Tab) 1 tab PO DAILY [facility] Phenytoin Sodium (Dilantin) 100 mg PO TID REAL Quetiapine Fumarate (Seroquel) 300 mg PO ONCE ONE Stop: 02/10/17 21:01 Quetiapine Fumarate (Seroquel) 400 mg PO HS REAL Thiamine HCl (Vitamin B1 Tab) 100 mg PO DAILY REAL
[2017-02-10] MEDS ORDERED: Patient's Own Med (Aztreonam 1 Gm In Ns 100ml [Azactam 1 Gm] 1 GM) IV SCH (17:00)
[2017-02-10] MEDS: Clindamycin 600 MG in Sodium Chloride 0.9% 100 ML IVPB SCH (17:23)
[2017-02-10] MEDS: Aztreonam 1 GM in Sodium Chloride 0.9% 100 ML IV SCH (17:33)
[2017-02-11 07:22] LABS: CHOLESTEROL 163 mg/dL (0-199)
[2017-02-11] MEDS: Aztreonam 1 GM in Sodium Chloride 0.9% 100 ML IV SCH ×3 (09:00→20:53)
[2017-02-11] MEDS: Multivitamin With Minerals Tab PO SCH (09:00)
[2017-02-11] MEDS: Clindamycin 600 MG in Sodium Chloride 0.9% 100 ML IVPB SCH ×3 (09:00→20:54)
[2017-02-11] MEDS: Enoxaparin 40 mg Syringe SC SCH (09:00)
[2017-02-11] MEDS: Azithromycin 500 MG in Sodium Chloride 0.9% 250 ML IVPB SCH (21:13)
[2017-02-12] MEDS: Aztreonam 1 GM in Sodium Chloride 0.9% 100 ML IV SCH ×3 (00:51→16:20)
[2017-02-12] MEDS: Multivitamin With Minerals Tab PO SCH (08:48)
[2017-02-12] MEDS: Enoxaparin 40 mg Syringe SC SCH (08:51)
[2017-02-12] MEDS: Clindamycin 600 MG in Sodium Chloride 0.9% 100 ML IVPB SCH ×3 (09:48→16:33)
--- NOTE | 2017-02-12 10:49 | CON ---
DATE: 02/12/2017 CHIEF COMPLAINT: Feeling suicidal. HISTORY OF PRESENT ILLNESS: This is a 61-year-old male, known case of arthritis, hepatitis C, chroni c pain, who was feeling suicidal and was admitted to psychiatric service. Medical consult was called for management of medical problems. The patient is sleepy, arousable and does not want to get into conversation. Denies any specific complaint. No reliable review of systems which is minimal, but th e patient denies any headache, dizziness, syncope, loss of consciousness, chest pain, shortness of br eath, nausea, vomiting, diarrhea, constipation, any new joint or extremity pain other than the patien t's chronic pain. REVIEW OF SYSTEMS: Other organ systems are unreliable and the patient is not cooperating for same. PAST MEDICAL HISTORY: Significant for hepatitis C, arthritis and chronic pain. PAST SURGICAL HISTORY: Unremarkable. PERSONAL HISTORY: The patient has a history of alcohol abuse. ALLERGIES: PENICILLIN. FAMILY HISTORY: Noncontributory. PHYSICAL EXAMINATION: GENERAL: Well-built, well-nourished 61-year-old male in no acute distress. VITAL SIGNS: Temperature 97.7, pulse 79, respirations 19, blood pressure 105/50. HEENT: Pupils reacting to light. No JVD, no thyromegaly, no lymphadenopathy, no nystagmus. Normoce phalic, atraumatic skull. HEART: S1, S2 normal, regular, no significant murmur, gallop or rub is heard. LUNGS: Shows good bilateral air entry. No rales or rhonchi. ABDOMEN: Soft, nontender, no organomegaly, no fluid. Bowel sounds are plus. EXTREMITIES: No edema, no calf swelling, no tenderness, no acute ischemia. CENTRAL NERVOUS SYSTEM: Essentially unchanged. DIAGNOSTIC DATA: Available diagnostic data reviewed overall. Lipid profile is acceptable except ___ __. ADMITTING IMPRESSION: Arthritis, hepatitis C, psychiatric disorder. PLAN: As ordered. Case and plan discussed with patient. Luis Otero MD cc: [id number] TT: 02/12/2017 10:48:32 Confirmation # [id number] Dictation # [id number] georgette
[2017-02-12] MEDS: Azithromycin 500 MG in Sodium Chloride 0.9% 250 ML IVPB SCH (10:54)
--- NOTE | 2017-02-12 11:07 | PCM.PYCHPN ---
Psychiatric Progress Note - Psychiatric Progress Note Patient seen today, length of contact: Patient evaluated, case discussed with team, 35 minute Patient Chief Complaint: "I'm feeling very depressed." Problems Identified/Issues Discussed: Patient continues to report that he feels very depressed, especially when he thinks of all of his past problems. He reports that he wishes he was not alive but denies active suicidal ideation/plan/intent and is able to contract for safety on the unit. He continues to report SOB due to PNA. +Continued AH of laughter Medication Change: No Medical Record Reviewed: Yes Mental Status Examination - Cognitive Function Orientation: Person, Place, Situation, Time Memory: Intact Attention: WNL Concentration: WNL Association: WNL Fund of Knowledge: WN Decription of patient's judgement and insights: Fair I/J - Mood Mood: Depressed - Affect Affect: Constricted - Formal Thought Process Formal Thought Process: Hallucinations Psychotic Thoughts and Behaviors: +AH of laughter - Suicidal Ideation Suicidal Ideation: No - Homicidal Ideation Homicidal Ideation: No Goal/Treatment Plan - Goal/Treatment Plan Need for Continued Stay: Remain at risks for inpatient hospitalization, Severe depression anxiety, Discharge may exacerbated symptoms Progress Toward Problem(s) and Goals/Treatment Plan: 61 yo male w/ h/o bipolar disorder, chronic ETOH abuse, presents w/ suicidal ideation and worsening depression in the context of ETOH abuse; patient also continues to be treated for a resolving PNA. -Thiamine, Folate -Continue Seroquel 400 mg PO HS -Stop Librium, no signs/symptoms of ETOH withdrawal -Continue [place] 300 mg PO BID, will continue to titrate -Individual, group and milieu tx -Internal medicine consult re: continued tx for PNA -NO 1:1 at this time, patient is able to contract for safety Estimated Date of D/C: 02/19/17
--- NOTE | 2017-02-12 14:25 | RAD ---
HISTORY: LLL PNEUMONIA COMPARISON: Comparison is made to 02/06/2017 TECHNIQUE: Chest PA and lateral FINDINGS: LUNGS: Re- demonstration of small opacities at the left lung base. PLEURA: No significant pleural effusion identified. No pneumothorax apparent. CARDIOVASCULAR: Normal. OSSEOUS STRUCTURES: No significant abnormalities. VISUALIZED UPPER ABDOMEN: Normal. OTHER FINDINGS: None. IMPRESSION: Re- demonstration of small opacities at the left lung base appear slightly smaller. . Otherwise no interval change.
[2017-02-13 08:17] LABS: MEAN CELL VOLUME 92.9 fl (80.0-94.0); MEAN CORPUSCULAR HEMOGLOBIN 31.1 pg (27.0-31.0); MEAN CORPUSCULAR HGB CONC 33.5 g/dL (33.0-37.0); RED CELL DISTRIBUTION WIDTH 15.2 % (11.5-14.5); WHITE BLOOD COUNT 7.6 K/uL (4.8-10.8)
[2017-02-13 08:24] LABS: ALB/GLOB RATIO 0.9 (1.0-2.1); ALKALINE PHOSPHATASE 99 U/L (38-126); ALT/SGPT 52 U/L (21-72); AST/SGOT 64 U/L (17-59); BILIRUBIN,TOTAL 0.3 mg/dl (0.2-1.3); BLOOD UREA NITROGEN 13 mg/dl (9-20); CALCIUM 9.2 mg/dL (8.4-10.2); CARBON DIOXIDE 27 mmol/L (22-30); CHLORIDE 104 mmol/L (98-107); GFR AFRICAN-AMERICAN > 60; GLUCOSE,RANDOM 95 mg/dL (75-110); POTASSIUM 4.7 MMOL/L (3.6-5.0); SODIUM 141 mmol/l (132-148); TOTAL PROTEIN 8.4 G/DL (6.3-8.2)
[2017-02-13] MEDS: Enoxaparin 40 mg Syringe SC SCH (09:17)
[2017-02-13] MEDS: Multivitamin With Minerals Tab PO SCH (09:18)
[2017-02-13 09:20] LABS: THYROID STIMULATING HORMONE 3.06 mIU/ML (0.46-4.68)
--- NOTE | 2017-02-13 13:35 | PCM.PYCHPN ---
Psychiatric Progress Note - Psychiatric Progress Note Patient seen today, length of contact: discussed with team Patient Chief Complaint: i'm still depressed Problems Identified/Issues Discussed: pt out in dayroom watching tv. states he still hears some voice laughing, but it 's getting better. reports his mood is depressed. feels more hopefull. denies medication side effects and agreeable to increase in lithium. Medication Change: No Medical Record Reviewed: Yes Mental Status Examination - Cognitive Function Orientation: Person, Place, Situation, Time Memory: Intact Attention: WNL Concentration: WNL Association: WNL Fund of Knowledge: WNL Decription of patient's judgement and insights: fair - Mood Mood: Depressed - Affect Affect: Constricted - Formal Thought Process Formal Thought Process: Hallucinations - Suicidal Ideation Suicidal Ideation: No - Homicidal Ideation Homicidal Ideation: No Goal/Treatment Plan - Goal/Treatment Plan Need for Continued Stay: Remain at risks for inpatient hospitalization, Severe depression anxiety, Discharge may exacerbated symptoms Progress Toward Problem(s) and Goals/Treatment Plan: bipolar disorder continue with current treatment have increased lithium dose to 300mg tid Estimated Date of D/C: 02/19/17
--- NOTE | 2017-02-13 18:09 | PN ---
DATE: 02/13/2017 The patient seen and examined. Interim events noted. Consults noted, appreciated. Psychiatric foll owup and intervention noted and appreciated. The patient remains in geropsych unit. Denies any spec [facility] complaints of chest pain or shortness of breath. PHYSICAL EXAMINATION: GENERAL: The patient is in no acute distress. VITAL SIGNS: Stable. HEART: S1, S2 normal, regular. LUNGS: Good bilateral air entry. ABDOMEN: Soft, nontender. EXTREMITIES: No edema, no calf swelling, no tenderness, no acute ischemia. CENTRAL NERVOUS SYSTEM: Essentially unchanged. DIAGNOSTIC DATA: Available diagnostic data reviewed. Overall, the patient's general medical condition is stable. PLAN: As ordered. Luis Otero MD cc: [id number] TT: 02/13/2017 18:08:51 Confirmation # [id number] Dictation # [id number] esvin
[2017-02-14] MEDS: Multivitamin With Minerals Tab PO SCH (08:54)
[2017-02-14] MEDS: Enoxaparin 40 mg Syringe SC SCH (08:54)
--- NOTE | 2017-02-14 10:18 | PN ---
DATE: 02/14/2017 The patient seen and examined. Interim events noted. The patient remains in geropsych unit. The pa tient is sleepy, arousable. Denies any specific medical complaint. No chest pain, no shortness of b reath, no abdominal pain. PHYSICAL EXAMINATION GENERAL: The patient is in no acute distress. VITAL SIGNS: Stable. HEART: S1, S2 normal, regular. LUNGS: Good bilateral air exchange. ABDOMEN: Soft, nontender. EXTREMITIES: No edema, no calf swelling, no tenderness, no acute ischemia. CENTRAL NERVOUS SYSTEM: Essentially unchanged. DIAGNOSTIC DATA: Available reviewed. Overall, patient's general medical condition is stable. PLAN: As ordered. Luis Otero MD cc: [id number] TT: 02/14/2017 10:18:32 Confirmation # [id number] Dictation # [id number] en
--- NOTE | 2017-02-14 12:52 | PCM.PYCHPN ---
Psychiatric Progress Note - Psychiatric Progress Note Patient seen today, length of contact: discussed with team Patient Chief Complaint: i'm down Problems Identified/Issues Discussed: pt resting comfortably in room. remains depressed. denies any side effects with increase in lithium. no self injurious behaviors. Medication Change: No Medical Record Reviewed: Yes Mental Status Examination - Cognitive Function Orientation: Person, Place, Situation, Time Memory: Intact Attention: WNL Concentration: WNL Association: WNL Fund of Knowledge: [facility] Decription of patient's judgement and insights: fair - Mood Mood: Depressed - Affect Affect: Constricted - Formal Thought Process Formal Thought Process: Hallucinations - Suicidal Ideation Suicidal Ideation: No - Homicidal Ideation Homicidal Ideation: No Goal/Treatment Plan - Goal/Treatment Plan Need for Continued Stay: Remain at risks for inpatient hospitalization, Severe depression anxiety, Discharge may exacerbated symptoms Progress Toward Problem(s) and Goals/Treatment Plan: bipolar disorder continue with current treatment Estimated Date of D/C: 02/19/17
--- NOTE | 2017-02-15 07:59 | PN ---
DATE: 02/15/2017 The patient seen and examined. Interim events noted. Consults noted, appreciated. Psychiatry follo wup and intervention noted and appreciated. The patient remains in geropsych unit. Feels okay. No specific complaints. PHYSICAL EXAMINATION: GENERAL: The patient is in no acute distress. VITAL SIGNS: Stable. Physical exam is essentially unchanged. DIAGNOSTIC DATA: Available reviewed. Overall, patient's general medical condition is stable. PLAN: As ordered. Luis Otero MD cc: [id number] TT: 02/15/2017 07:59:35 Confirmation # [id number] Dictation # [id number] en
[2017-02-15] MEDS: Multivitamin With Minerals Tab PO SCH (08:30)
[2017-02-15] MEDS: Enoxaparin 40 mg Syringe SC SCH (08:31)
--- NOTE | 2017-02-15 10:38 | PCM.PYCHPN ---
Psychiatric Progress Note - Psychiatric Progress Note Patient seen today, length of contact: Patient evaluated, case discussed with team, chart reviewed, 35 Patient Chief Complaint: "My mood goes up and down" Problems Identified/Issues Discussed: Patient continues to report that he feels very depressed, stating that his mood fluctuates "up and down". He also reports concerns about his physical health as he is recovering from acute PNA. He continues to have intermittent passive suicidal ideation, without active suicidal plan/intent/plan. He is able to contract for safety on the unit. +Intermittent AH of laughing, which are less frequent than before. Medication Change: No Medical Record Reviewed: Yes Mental Status Examination - Cognitive Function Orientation: Person, Place, Situation, Time Memory: Intact Attention: WNL Concentration: WNL Association: WNL Fund of Knowledge: [facility] Decription of patient's judgement and insights: Fair I/J - Mood Mood: Depressed - Affect Affect: Constricted - Speech Speech: Appropriate - Formal Thought Process Formal Thought Process: Hallucinations Psychotic Thoughts and Behaviors: +Intermittent AH of laughter - Suicidal Ideation Suicidal Ideation: No - Homicidal Ideation Homicidal Ideation: No Goal/Treatment Plan - Goal/Treatment Plan Need for Continued Stay: Remain at risks for inpatient hospitalization, Severe depression anxiety, Discharge may exacerbated symptoms Progress Toward Problem(s) and Goals/Treatment Plan: 61 yo male w/ h/o bipolar disorder, chronic ETOH abuse, presented w/ suicidal ideation and worsening depression in the context of ETOH abuse; patient also continues to be treated for a resolving PNA. -Thiamine, Folate -Continue Seroquel 400 mg PO HS -Continue [place] 300 mg PO TID -Individual, group and milieu tx -Internal medicine consult re: continued tx for PNA -NO 1:1 at this time, patient is able to contract for safety Estimated Date of D/C: 02/19/17
[2017-02-16] MEDS: Multivitamin With Minerals Tab PO SCH (08:26)
[2017-02-16] MEDS: Enoxaparin 40 mg Syringe SC SCH (08:27)
--- NOTE | 2017-02-16 10:10 | PCM.PYCHPN ---
Psychiatric Progress Note - Psychiatric Progress Note Patient seen today, length of contact: Patient evaluated, case discussed with team, chart reviewed, 35 Patient Chief Complaint: "I'm still having racing thoughts" Problems Identified/Issues Discussed: Patient reports that he no longer has +AH of laughter. He continues to report mood fluctuations, feelings of depression and racing thoughts. He continues to have intermittent passive suicidal ideation, without active suicidal plan/ intent/plan. He is able to contract for safety on the unit. Diagnostic Results: Li 0.6 on 02/16/17 Medication Change: No Medical Record Reviewed: Yes Mental Status Examination - Cognitive Function Orientation: Person, Place, Situation, Time Memory: Intact Attention: WNL Concentration: WNL Association: WNL Fund of Knowledge: [facility] Decription of patient's judgement and insights: Fair I/J - Mood Mood: Depressed - Affect Affect: Constricted - Speech Speech: Appropriate - Formal Thought Process Formal Thought Process: No Impairment Psychotic Thoughts and Behaviors: NO AH/VH/paranoia - Suicidal Ideation Suicidal Ideation: No - Homicidal Ideation Homicidal Ideation: No Goal/Treatment Plan - Goal/Treatment Plan Need for Continued Stay: Remain at risks for inpatient hospitalization, Severe depression anxiety, Discharge may exacerbated symptoms Progress Toward Problem(s) and Goals/Treatment Plan: 61 yo male w/ h/o bipolar disorder, chronic ETOH abuse, presented w/ suicidal ideation and worsening depression in the context of ETOH abuse; patient also continues to be treated for a resolving PNA. -Thiamine, Folate -Continue Seroquel 400 mg PO HS -Continue [place] 300 mg PO TID; LI 0.6 on 02/16/17 -Individual, group and milieu tx -Internal medicine consult re: continued tx for PNA -Referral to alcohol rehab when medically and psychiatrically stable Estimated Date of D/C: 02/22/17
[2017-02-17] MEDS: Multivitamin With Minerals Tab PO SCH (08:46)
--- NOTE | 2017-02-17 10:23 | PCM.PYCHPN ---
Psychiatric Progress Note - Psychiatric Progress Note Patient seen today, length of contact: Patient evaluated, case discussed with team, chart reviewed, 35 Patient Chief Complaint: "I have negative thoughts." Problems Identified/Issues Discussed: Patient reports feeling anxious about the future. He is worried about continued ETOH abuse. Motivational therapy provided. He reports continued intermittent feelings of depression. No AH/VH/SI/HI. He reports having "negative thoughts" which race through his mind. [employer] discussed cognitive restructuring and other CBT strategies with the patient. Diagnostic Results: Li 0.6 on 02/16/17 Medication Change: No Medical Record Reviewed: Yes Mental Status Examination - Cognitive Function Orientation: Person, Place, Situation, Time Memory: Intact Attention: WNL Concentration: WNL Association: WNL Fund of Knowledge: [facility] Decription of patient's judgement and insights: Fair I/J - Mood Mood: Depressed - Affect Affect: Broad - Speech Speech: Appropriate - Formal Thought Process Formal Thought Process: No Impairment Psychotic Thoughts and Behaviors: NO AH/VH/paranoia - Suicidal Ideation Suicidal Ideation: No - Homicidal Ideation Homicidal Ideation: No Goal/Treatment Plan - Goal/Treatment Plan Need for Continued Stay: Remain at risks for inpatient hospitalization, Severe depression anxiety, Discharge may exacerbated symptoms Progress Toward Problem(s) and Goals/Treatment Plan: 61 yo male w/ h/o bipolar disorder, chronic ETOH abuse, presented w/ suicidal ideation and worsening depression in the context of ETOH abuse, now improving clinically. -Thiamine, Folate -Continue Seroquel 400 mg PO HS -Continue [place] 300 mg PO TID; LI 0.6 on 02/16/17 -Individual, group and milieu tx -Internal medicine consult re: continued tx for PNA -Referral to alcohol rehab when medically stable Estimated Date of D/C: 02/22/17
--- NOTE | 2017-02-17 10:54 | PN ---
DATE: 02/17/2017 SUBJECTIVE: The patient seen and examined. Interim events noted. Consults noted, appreciated. Psy chiatric followup and intervention noted and appreciated. The patient remains in . Denies any specific medical complaint. No chest pain or shortness of breath. PHYSICAL EXAMINATION: GENERAL: The patient is in no acute distress. VITAL SIGNS: Stable. HEART: S1, S2 normal, regular. LUNGS: Good bilateral . ABDOMEN: Soft, nontender. EXTREMITIES: No edema, no calf swelling, no tenderness, no acute ischemia. CENTRAL NERVOUS SYSTEM: Essentially unchanged. DIAGNOSTIC DATA: Available diagnostic data reviewed. IMPRESSION: Overall, the patient is medically stable for treatment. PLAN: As ordered. Case and plan discussed with patient. Luis Otero MD cc: [id number] TT: 02/17/2017 10:54:18 Confirmation # [id number] Dictation # [id number] esvin
--- NOTE | 2017-02-18 08:20 | PN ---
DATE: 02/18/2017 The patient seen and examined. Interim events noted. Consults noted, appreciated. Psychiatric foll owup and intervention noted and appreciated. The patient remains in geropsych unit. The patient has no specific ____ complaint. No chest pain, no shortness of breath. PHYSICAL EXAMINATION: GENERAL: The patient is in no acute distress. VITAL SIGNS: Stable. HEART: S1, S2 normal, regular. LUNGS: Good bilateral air entry. ABDOMEN: Soft. EXTREMITIES: No edema, no calf swelling, no tenderness, no acute ischemia. CENTRAL NERVOUS SYSTEM: Essentially unchanged. DIAGNOSTIC DATA: Available diagnostic data reviewed. Overall, the patient's general medical condition is stable. The patient is medically stable and libia red for alcohol abuse treatment. There is no medical contraindication foreseen. The patient is medi rupert stable. PLAN: As ordered. Luis Otero MD cc: [id number] TT: 02/18/2017 08:20:30 Confirmation # [id number] Dictation # [id number] tn
[2017-02-18] MEDS: Multivitamin With Minerals Tab PO SCH (08:54)
--- NOTE | 2017-02-18 09:01 | PCM.PYCHPN ---
Psychiatric Progress Note - Psychiatric Progress Note Patient seen today, length of contact: Patient evaluated, case discussed with team, chart reviewed, 35 Patient Chief Complaint: "I'm feeling a little better" Problems Identified/Issues Discussed: No significant events overnight. Patient continues to report improved mood. No thoughts of harming himself or others. NO AH/VH/SI/HI. He continues to want help with alcohol cessation, motivational therapy provided. Diagnostic Results: Li 0.6 on 02/16/17 Medication Change: No Medical Record Reviewed: Yes Mental Status Examination - Cognitive Function Orientation: Person, Place, Situation, Time Memory: Intact Attention: WNL Concentration: WNL Association: [facility] Fund of Knowledge: [facility] Decription of patient's judgement and insights: Fair I/J - Mood Mood: Neutral - Affect Affect: Broad - Speech Speech: Appropriate - Formal Thought Process Formal Thought Process: No Impairment Psychotic Thoughts and Behaviors: NO AH/VH/paranoia - Suicidal Ideation Suicidal Ideation: No - Homicidal Ideation Homicidal Ideation: No Goal/Treatment Plan - Goal/Treatment Plan Progress Toward Problem(s) and Goals/Treatment Plan: 61 yo male w/ h/o bipolar disorder, chronic ETOH abuse, presented w/ suicidal ideation and worsening depression in the context of ETOH abuse, now improved clinically. Patient is psychiatrically stable for referral for alcohol rehab. -Thiamine, Folate -Continue Seroquel 400 mg PO HS -Continue [place] 300 mg PO TID; LI 0.6 on 02/16/17 -Individual, group and milieu tx -Referral to alcohol rehab; patient is currently medically stable Estimated Date of D/C: 02/22/17
--- NOTE | 2017-02-19 08:31 | PCM.PYCHPN ---
Psychiatric Progress Note - Psychiatric Progress Note Patient seen today, length of contact: Patient evaluated, case discussed with team, chart reviewed, 35 Patient Chief Complaint: "I'm okay" Problems Identified/Issues Discussed: No significant events overnight or this morning. Patient continues to report improved mood. No thoughts of harming himself or others. NO AH/VH/SI/HI. He continues to want help with alcohol cessation, motivational therapy provided. Diagnostic Results: Li 0.6 on 02/16/17 Medication Change: No Medical Record Reviewed: Yes Mental Status Examination - Cognitive Function Orientation: Person, Place, Situation, Time Memory: Intact Attention: WNL Concentration: WNL Association: WN Fund of Knowledge: [facility] Decription of patient's judgement and insights: Fair I/J - Mood Mood: Neutral - Affect Affect: Broad - Speech Speech: Appropriate - Formal Thought Process Formal Thought Process: No Impairment Psychotic Thoughts and Behaviors: NO AH/VH/paranoia - Suicidal Ideation Suicidal Ideation: No - Homicidal Ideation Homicidal Ideation: No Goal/Treatment Plan - Goal/Treatment Plan Progress Toward Problem(s) and Goals/Treatment Plan: 61 yo male w/ h/o bipolar disorder, chronic ETOH abuse, presented w/ suicidal ideation and worsening depression in the context of ETOH abuse, now improved clinically. Patient is psychiatrically stable for referral for alcohol rehab. -Thiamine, Folate -Continue Seroquel 400 mg PO HS -Continue [place] 300 mg PO TID; LI 0.6 on 02/16/17 -Individual, group and milieu tx -Referral to alcohol rehab; patient is currently medically stable Estimated Date of D/C: 02/23/17
[2017-02-19] MEDS: Multivitamin With Minerals Tab PO SCH (09:01)
--- NOTE | 2017-02-19 19:15 | PN ---
DATE: 02/19/2017 The patient seen and examined. Interim events noted. The patient remains in geropsych unit, psychia tric followup and intervention noted and appreciated. The patient denies any specific complaint. No chest pain, no shortness of breath. PHYSICAL EXAMINATION: GENERAL: The patient is in no acute distress. VITAL SIGNS: Stable. Physical exam is essentially unchanged. DIAGNOSTIC DATA: Available diagnostic data reviewed. Overall, patient's general medical condition is stable. PLAN: As ordered. Luis Otero MD cc: [id number] TT: 02/19/2017 19:14:17 Confirmation # [id number] Dictation # [id number] felicia
--- NOTE | 2017-02-20 08:53 | PN ---
DATE: 02/20/2017 Medical followup. The patient seen and examined. Interim events noted. Consults noted, appreciated. Psychiatric foll owup and intervention noted and appreciated. The patient remains in geropsych unit. Tentatively hermann eduled to be discharged on 02/23. The patient feels okay. No specific medical complaint. No chest p ain or shortness of breath. PHYSICAL EXAMINATION: GENERAL: The patient is in no acute distress. VITAL SIGNS: Stable. Physical exam is essentially unchanged. DIAGNOSTIC DATA: Available diagnostic data reviewed. Overall, the patient's general medical condition is stable. PLAN: As ordered. Luis Otero MD cc: [id number] TT: 02/20/2017 08:52:06 Confirmation # [id number] Dictation # [id number] tn
[2017-02-20] MEDS: Multivitamin With Minerals Tab PO SCH (09:21)
--- NOTE | 2017-02-20 10:22 | PCM.PYCHPN ---
Psychiatric Progress Note - Psychiatric Progress Note Patient seen today, length of contact: chart reviewed, discussed w/team , 35min spent Patient Chief Complaint: resolving depression resolved pneumonia substance use newly in remission-pending detox placement Problems Identified/Issues Discussed: alteration in mood alteration in coping substance dependence-newly in remission alteration in oxygenation resolved Medical Problems: per chart Medication Change: No Medical Record Reviewed: Yes Consults ordered or reviewed: per chart Mental Status Examination - Cognitive Function Orientation: Person, Place, Situation, Time Memory: Intact Attention: WNL Concentration: WNL Association: WNL Fund of Knowledge: [facility] Decription of patient's judgement and insights: impaired - Mood Mood: Neutral - Affect Affect: Broad, Constricted - Speech Speech: Appropriate - Formal Thought Process Formal Thought Process: No Impairment - Suicidal Ideation Suicidal Ideation: No - Homicidal Ideation Homicidal Ideation: No Goal/Treatment Plan - Goal/Treatment Plan Need for Continued Stay: Remain at risks for inpatient hospitalization, Severe depression anxiety, Discharge may exacerbated symptoms Progress Toward Problem(s) and Goals/Treatment Plan: inpt admission vital signs and observation per clinical status adjust meds per clinical status lithium level 0.6 02/16/19 TSH 3.06 02/13/17 discharge planning in progress -pending placement detoxification Estimated Date of D/C: 02/23/17 - Smoking Cessation Smoking Cessation Initiated: No Reason for not providing: deferred
--- NOTE | 2017-02-20 10:30 | PCM.PYCHPN ---
Psychiatric Progress Note - Psychiatric Progress Note Patient seen today, length of contact: chart reviewed, discussed w/team , 35min spent Patient Chief Complaint: resolving depression resolved pneumonia substance use newly in remission-pending detox placement Problems Identified/Issues Discussed: alteration in mood alteration in coping substance dependence-newly in remission alteration in oxygenation resolved Medical Problems: per chart Diagnostic Results: per psychiatry per medicine per social director Medication Change: No Medical Record Reviewed: Yes Mental Status Examination - Cognitive Function Orientation: Person, Place, Situation, Time Memory: Intact Attention: WNL Concentration: WNL Association: WNL Fund of Knowledge: WN Decription of patient's judgement and insights: impaired - Mood Mood: Neutral - Affect Affect: Broad, Constricted - Speech Speech: Appropriate - Formal Thought Process Formal Thought Process: No Impairment - Suicidal Ideation Suicidal Ideation: No - Homicidal Ideation Homicidal Ideation: No Goal/Treatment Plan - Goal/Treatment Plan Need for Continued Stay: Remain at risks for inpatient hospitalization, Severe depression anxiety, Discharge may exacerbated symptoms Progress Toward Problem(s) and Goals/Treatment Plan: inpt admission vital signs and observation per clinical status adjust meds per clinical status lithium level 0.6 02/16/19 TSH 3.06 02/13/17 discharge planning in progress -pending placement detoxification Estimated Date of D/C: 02/23/17 - Smoking Cessation Smoking Cessation Initiated: No Reason for not providing: deferred
[2017-02-21] MEDS: Multivitamin With Minerals Tab PO SCH (09:04)
--- NOTE | 2017-02-21 09:25 | PN ---
DATE: 02/21/2017 The patient is seen and examined. Interim events noted. Consults noted and appreciated. Psychiatri c followup and intervention noted and appreciated. The patient remains in geropsych unit. The patie nt denies any specific medical complaint. No cough, no chest pain, no shortness of breath. PHYSICAL EXAMINATION: GENERAL: The patient is in no acute distress. VITAL SIGNS: Stable. HEART: S1, S2 normal, regular. LUNGS: Good bilateral air exchange. ABDOMEN: Soft, nontender. EXTREMITIES: No edema, no calf swelling, no tenderness, no acute ischemia. CENTRAL NERVOUS SYSTEM: Essentially unchanged. DIAGNOSTIC DATA: Available diagnostic data reviewed. Overall, the patient's general medical condition is stable. PLAN: As ordered. Luis Otero MD cc: [phone] TT: 02/21/2017 09:24:40 Confirmation # [id number] Dictation # [id number] jn
--- NOTE | 2017-02-21 15:07 | PCM.PYCHPN ---
Psychiatric Progress Note - Psychiatric Progress Note Patient seen today, length of contact: chart reviewed, discussed w/team , 35min spent Patient Chief Complaint: resolving depression resolved pneumonia substance use newly in remission-pending detox placement Problems Identified/Issues Discussed: alteration in mood alteration in coping substance dependence-newly in remission alteration in oxygenation resolved Medical Problems: per chart Diagnostic Results: per psychiatry per medicine per social media developer DSM 5 Symptoms Update: less depressed pending detox referral Medication Change: No Medical Record Reviewed: Yes Mental Status Examination - Cognitive Function Orientation: Person, Place, Situation, Time Memory: Intact Attention: WNL Concentration: WNL Association: [facility] Fund of Knowledge: [facility] Decription of patient's judgement and insights: impaired - Mood Mood: Neutral - Affect Affect: Broad, Constricted - Speech Speech: Appropriate - Formal Thought Process Formal Thought Process: No Impairment - Suicidal Ideation Suicidal Ideation: No - Homicidal Ideation Homicidal Ideation: No Goal/Treatment Plan - Goal/Treatment Plan Need for Continued Stay: Remain at risks for inpatient hospitalization, Severe depression anxiety, Discharge may exacerbated symptoms Progress Toward Problem(s) and Goals/Treatment Plan: inpt admission vital signs and observation per clinical status adjust meds per clinical status lithium level 0.6 02/16/19 TSH 3.06 02/13/17 discharge planning in progress -pending placement detoxification Estimated Date of D/C: 02/23/17 - Smoking Cessation Smoking Cessation Initiated: No Reason for not providing: deferred
[2017-02-22] MEDS: Multivitamin With Minerals Tab PO SCH (08:29)
--- NOTE | 2017-02-22 08:30 | PCM.PYCHPN ---
Psychiatric Progress Note - Psychiatric Progress Note Patient seen today, length of contact: Chart reviewed, case discussed with team , patient evaluated, 35 min Patient Chief Complaint: "I'm okay" Problems Identified/Issues Discussed: No significant events over the weekend. Patient continues to report improved mood. No thoughts of harming himself or others. NO AH/VH/SI/HI. He continues to want help with alcohol cessation. Diagnostic Results: Li 0.6 on 02/16/17 Medication Change: No Medical Record Reviewed: Yes Consults ordered or reviewed: Medicine consult- Dr. Otero Mental Status Examination - Cognitive Function Orientation: Person, Place, Situation, Time Memory: Intact Attention: WNL Concentration: WNL Association: WNL Fund of Knowledge: [facility] Decription of patient's judgement and insights: Good I/J - Mood Mood: Neutral - Affect Affect: Broad - Speech Speech: Appropriate - Formal Thought Process Formal Thought Process: No Impairment Psychotic Thoughts and Behaviors: No AH/VH/paranoia/delusions - Suicidal Ideation Suicidal Ideation: No - Homicidal Ideation Homicidal Ideation: No Goal/Treatment Plan - Goal/Treatment Plan Progress Toward Problem(s) and Goals/Treatment Plan: 61 yo male w/ h/o bipolar disorder, chronic ETOH abuse, presented w/ suicidal ideation and worsening depression in the context of ETOH abuse, now improved clinically. Patient is psychiatrically stable for referral for alcohol rehab. -Thiamine, Folate -Continue Seroquel 400 mg PO HS -Continue [place] 300 mg PO TID; LI 0.6 on 02/16/17 -Individual, group and milieu tx -Referral to alcohol rehab; patient is currently medically stable Estimated Date of D/C: 02/24/17
--- NOTE | 2017-02-22 11:22 | PN ---
DATE: 02/22/2017 The patient seen and examined. Interim events noted. Consults noted, appreciated. Psychiatric foll owup and intervention noted and appreciated. The patient remains in geropsych unit awaiting disposit ion to an alcohol rehab unit. The patient feels okay. No specific medical complaint. No specific m edical issues reported by nursing staff. PHYSICAL EXAMINATION: GENERAL: The patient is in no acute distress. VITAL SIGNS: Stable. Physical exam is essentially unchanged. DIAGNOSTIC DATA: Available diagnostic data reviewed. Overall, patient's general medical condition is stable. The patient is medically stable for discharg e to a rehab facility. PLAN: As ordered. Case and plan discussed with patient. Luis Otero MD cc: [id number] TT: 02/22/2017 11:21:16 Confirmation # [id number] Dictation # [id number] esvin
[2017-02-23] MEDS: Multivitamin With Minerals Tab PO SCH (09:18)
--- NOTE | 2017-02-23 10:40 | PN ---
DATE: 02/23/2017 The patient seen and examined. Interim events noted. Consults noted, appreciated. Psychiatric foll owup and intervention noted and appreciated. The patient remains in geropsych unit. The patient is awake, responsive, feels okay. Denies any specific medical complaint. No chest pain, no shortness o f breath. No side effects of the medication. PHYSICAL EXAMINATION: GENERAL: The patient is in no acute distress. VITAL SIGNS: Stable. HEART: S1, S2 normal, regular. LUNGS: Good bilateral air exchange. ABDOMEN: Soft, nontender. EXTREMITIES: No calf swelling, no tenderness, no acute ischemia. CENTRAL NERVOUS SYSTEM: Essentially unchanged. DIAGNOSTIC DATA: Available diagnostic data reviewed. Overall, patient's general medical condition is stable and improving. PLAN: As ordered. Luis Otero MD cc: [phone] TT: 02/23/2017 10:40:01 Confirmation # [id number] Dictation # [id number] georgette
--- NOTE | 2017-02-23 11:28 | PCM.PYCHPN ---
Psychiatric Progress Note - Psychiatric Progress Note Patient seen today, length of contact: Chart reviewed, case discussed with team , patient evaluated, 35 min Patient Chief Complaint: "I'm okay" Problems Identified/Issues Discussed: No significant events overnight. Patient continues to report improved mood. No thoughts of harming himself or others. NO AH/VH/SI/HI. He continues to want help with alcohol cessation. Diagnostic Results: Li 0.6 on 02/16/17 Medication Change: No Medical Record Reviewed: Yes Mental Status Examination - Cognitive Function Orientation: Person, Place, Situation, Time Memory: Intact Attention: WNL Concentration: WNL Association: [facility] Fund of Knowledge: [facility] Decription of patient's judgement and insights: Good I/J - Mood Mood: Neutral - Affect Affect: Broad - Speech Speech: Appropriate - Formal Thought Process Formal Thought Process: No Impairment Psychotic Thoughts and Behaviors: No AH/VH/paranoia/delusions - Suicidal Ideation Suicidal Ideation: No - Homicidal Ideation Homicidal Ideation: No Goal/Treatment Plan - Goal/Treatment Plan Progress Toward Problem(s) and Goals/Treatment Plan: 61 yo male w/ h/o bipolar disorder, chronic ETOH abuse, presented w/ suicidal ideation and worsening depression in the context of ETOH abuse, now improved clinically. Patient is psychiatrically stable for referral for alcohol rehab. -Thiamine, Folate -Continue Seroquel 400 mg PO HS -Continue [place] 300 mg PO TID; LI 0.6 on 02/16/17 -Individual, group and milieu tx -Referral to alcohol rehab, pending placement; patient is currently medically stable Estimated Date of D/C: 02/24/17
--- NOTE | 2017-02-24 08:38 | PN ---
DATE: 02/24/2017 Medical followup. The patient seen and examined. Interim events noted. Consults noted and apprecienriqueta lee. Psychiatry followup and intervention noted and appreciated. The patient remains in [facility], awaiting transfer to a rehab facility. Denies any specific medical complaint. No chest pain, n o shortness of breath. PHYSICAL EXAMINATION: GENERAL: The patient is in no acute distress. VITAL SIGNS: Stable. HEART: S1, S2 normal, regular. LUNGS: . ABDOMEN: Soft, nontender. EXTREMITIES: No calf swelling, no tenderness, no acute ischemia. CENTRAL NERVOUS SYSTEM: Essentially unchanged. DIAGNOSTIC DATA: Available reviewed. Overall, patient's general medical condition is stable. PLAN: As ordered. Luis Otero MD cc: [id number] TT: 02/24/2017 08:37:54 Confirmation # [id number] Dictation # [id number] en
[2017-02-24] MEDS: Multivitamin With Minerals Tab PO SCH (09:00)
--- NOTE | 2017-02-24 09:36 | PCM.PYCHPN ---
Psychiatric Progress Note - Psychiatric Progress Note Patient seen today, length of contact: Chart reviewed, case discussed with team , patient evaluated, 35 min Patient Chief Complaint: "I'm okay" Problems Identified/Issues Discussed: Patient continues to report improved mood. No thoughts of harming himself or others. NO AH/VH/SI/HI. He continues to want help with alcohol cessation. Diagnostic Results: Li 0.6 on 02/16/17 Medication Change: No Medical Record Reviewed: Yes Mental Status Examination - Cognitive Function Orientation: Person, Place, Situation, Time Memory: Intact Attention: WNL Concentration: WNL Association: [facility] Fund of Knowledge: [facility] Decription of patient's judgement and insights: Good I/J - Mood Mood: Neutral - Affect Affect: Broad - Speech Speech: Appropriate - Formal Thought Process Formal Thought Process: No Impairment Psychotic Thoughts and Behaviors: No AH/VH/paranoia/delusions - Suicidal Ideation Suicidal Ideation: No - Homicidal Ideation Homicidal Ideation: No Goal/Treatment Plan - Goal/Treatment Plan Progress Toward Problem(s) and Goals/Treatment Plan: 61 yo male w/ h/o bipolar disorder, chronic ETOH abuse, presented w/ suicidal ideation and worsening depression in the context of ETOH abuse, now improved clinically. Patient is psychiatrically stable for referral for alcohol rehab. -Thiamine, Folate -Continue Seroquel 400 mg PO HS -Continue [place] 300 mg PO TID; LI 0.6 on 02/16/17 -Individual, group and milieu tx -Discharge tomorrow to alcohol rehab Estimated Date of D/C: 02/25/17
[2017-02-25 05:40] VITALS: BP 106/74; PULSE 64; RESP 18; TEMP 97.2
--- NOTE | 2017-02-25 08:10 | PCM.PYCHDC ---
Mental Status Examination - Mental Status Examination Orientation: Person, Place, Situation, Time Memory: Intact Mood: Neutral Affect: Broad Speech: Appropriate Attention: WNL Concentration: WNL Association: WNL Fund of Knowledge: WNL Formal Thought Process: No Impairment Description of patient's judgement and insight: Good I/J Psychotic Thoughts and Behaviors: No AH/VH/paranoia/delusions Suicidal Ideation: No Current Homicidal Ideation?: No Discharge Summary - Discharge Note Reason for Hospitalization: HPI: 61 y/o male, w/ self reported h/o bipolar disorder, presents w/ active PNA, depressed mood, suicidal ideation and auditory hallucinations. During initial ER assessment patient reported that he was walking toward [place] and when he was walking in the [place] he felt like jumping but when he look down he noticed that it was no cars, for him to jump in front of the cars. Pt. reports feeling very depressed, having auditory hallucinations of someone laughing, denied commands. He continues to have suicidal ideation w/o current plan/intent and is seeking treatment. He is goal oriented and would like attend alcohol rehab. He reports a history of yony in the past, but denies current manic symptoms. He reports chronic severe alcohol abuse and would like help with ETOH cessation. PPHx: Pt. was admitted at [facility]3] from February 03 thru Feb 06 2017. Multiple psychiatric admission and rehabilitations. Pt. was admitted to psych > 20 times in the past and he admits to 3 suicide attempts in the past PMHx: Hepatitis C, Arthritis, Chronic pain All: PCN FHx: Mother w/ Alzheimer dz, Father with "mood problems" and Brother with mental retardation. SHx: Father of 3 adults children that have no contact with patient for the past 10 years. No close family as patient stated he have two siblings that also have no contact with patient for many years. Daily ETOH use (1 quart vodka a day + beer). Denies drugs/cig use. Legal charges in the past, such as DWI and possession of stolen property. On SSD. Consultations:: List each consultation separately and include: 1. Reason for request. 2. Findings. 3. Follow-up Consultations: Medicine consult- Dr. Otero Summary of Hospital Course include:: 1. Description of specific treatment plan utilized for patients during their course of treatmen. 2. Summarize the time- course for resolution of acute symptoms and/or regressed behaviors. 3. Describe issues identified and worked on during hospitalization. 4. Describe medication utilized. 5. Describe medical problems identified and treated. 6. Reassessment of suicide risk Summary of Hospital Course: Patient was admitted to the psychiatry unit and stabilized on [place] 300 mg PO TID, Seroquel 400 mg PO HS. He was also treated with IV and PO antibiotics for PNA, which has now resolved. - Final Diagnosis (DSM 5) Condition upon Discharge: GOOD DSM 5: Bipolar I Disorder, Alcohol Use Disorder Disposition: HOME/ ROUTINE Follow-up Treatment Plan: 61 yo male w/ h/o bipolar disorder, chronic ETOH abuse, presented w/ suicidal ideation and worsening depression in the context of ETOH abuse, now improved clinically. Patient is psychiatrically stable for discharge to alcohol rehab. -Thiamine, Folate -Continue Seroquel 400 mg PO HS -Continue [place] 300 mg PO TID; LI 0.6 on 02/16/17 -Individual, group and milieu tx -Discharge today to alcohol rehab Discharge >35 min Prescriptions/Medication Reconciliation: Folic Acid 1 mg PO DAILY #30 tab Gabapentin [Neurontin] 300 mg PO TID #90 cap [place] Carbonate [[place] Carbonate 300MG] 300 mg PO TID #90 cap QUEtiapine [SEROquel] 400 mg PO HS #60 tab Thiamine [Vitamin B1 Tab] 100 mg PO DAILY #30 tab - Smoking Cessation Smoking Cessation Medication prescribed: No Reason for not providing: Not indicated - Antipsychotic Medications Pt discharged on 2 or more routine antipsychotic medications: No
--- NOTE | 2017-02-25 08:22 | PN ---
DATE: 02/25/2017 Medical followup. The patient seen and examined. Interim events noted. The patient remains in [facility]. Denies any specific medical complaint. The patient is for possible discharge. No chest pain, no shortness of breath. PHYSICAL EXAMINATION: GENERAL: The patient is in no acute distress. VITAL SIGNS: Stable. HEART: S1, S2 normal, regular. LUNGS: Good bilateral air entry. ABDOMEN: Soft, nontender. EXTREMITIES: No calf swelling, no tenderness, no acute ischemia. CENTRAL NERVOUS SYSTEM: Essentially unchanged. DIAGNOSTIC DATA: Available reviewed. Overall, patient's general medical condition is . PLAN: As ordered. Case and plan discussed with psychiatrist. Luis Otero MD cc: [id number] TT: 02/25/2017 08:22:00 Confirmation # [id number] Dictation # [id number] en
== END 2017-02-25 09:35 | DRG 885 ==
LOC: H.STEP 13:26
PROVIDERS: ADMIT Psychiatry & Neurology Psychiatry; ATTEND Psychiatry & Neurology Psychiatry
PROC: GZHZZZZ Group Psychotherapy (ICD-10-PCS; principal; 2017-02-10)
DX: F31.9 Bipolar disorder, unspecified (principal); J18.9 Pneumonia, unspecified organism; R45.851 Suicidal ideations; G89.29 Other chronic pain; B19.20 Unspecified viral hepatitis C without hepatic coma; F41.9 Anxiety disorder, unspecified; M19.90 Unspecified osteoarthritis, unspecified site; Z88.0 Allergy status to penicillin; Z72.89 Other problems related to lifestyle

== ENCOUNTER 2017-08-01 22:30 | Inpatient (IN) | payer MEDICARE ==
[2017-08-01 22:31] VITALS: BMI 24.7
--- NOTE | 2017-08-01 22:48 | ED PDOC ---
HPI: Psych/Substance Abuse Time Seen by Provider: 08/01/17 22:43 Chief Complaint (Nursing): Lower Extremity Problem/Injury Chief Complaint (Provider): knee pain, etoh, crisis eval History Per: Patient Additional Complaint(s): 61-year-old male presents to emergency department for evaluation of right knee pain ongoing for the past few days. Patient has history of chronic pains right knee since 2010. He admits to drinking alcohol today and states that he has been hearing voices for the past 3 days. Patient also has suicidal thoughts and states that his plan would be to cut his throat. Patient states he has been compliant with his psych meds which include lithium and seroquel. Past Medical History Reviewed: Historical Data, Nursing Documentation, Vital Signs Vital Signs: Last Vital Signs Temp 98.5 F 08/01/17 22:38 Pulse 116 H 08/01/17 22:38 Resp 16 08/01/17 22:38 BP 112/62 08/01/17 22:38 Pulse Ox 99 08/01/17 22:38 - Medical History PMH: Anxiety, Arthritis, Bipolar Disorder, CVA, Depression, Hypercholesterolemia , Paranoia, Pneumonia, Post Traumatic Stress Disorder, Seizures (alcohol withdrawl) Comment Only: Schizophrenia (per old chart but pt denies) - Surgical History Surgical History: Appendectomy, Endoscopy, Tonsillectomy - Family History Family History: States: No Known Family Hx - Social History Alcohol: > 2 Drinks/Day - Home Medications Home Medications: Ambulatory Orders Medication Instructions Recorded Folic Acid 1 mg PO DAILY #30 tab 02/24/17 Gabapentin [Neurontin] 300 mg PO TID #90 cap 02/24/17 [place] Carbonate [[place] 300 mg PO TID #90 cap 02/24/17 Carbonate 300MG] QUEtiapine [SEROquel] 400 mg PO HS #60 tab 02/24/17 Thiamine [Vitamin B1 Tab] 100 mg PO DAILY #30 tab 02/24/17 Tamsulosin [Flomax] 0.4 mg PO DAILY 08/02/17 - Allergies Allergies/Adverse Reactions: Allergies Allergy/AdvReac Type Severity Reaction Status Date / Time Penicillins Allergy convulsions Verified 10/12/16 12:35 Review of Systems ROS Statement: Except As Marked, All Systems Reviewed And Found Negative Musculoskeletal: Positive for: Other (chronic right knee pain) Psych: Positive for: Other (etoh) Physical Exam - Reviewed Nursing Documentation Reviewed: Yes Vital Signs Reviewed: Yes - Physical Exam Appears: Positive for: Well, Non-toxic, No Acute Distress Skin: Negative for: Rash Eye Exam: Positive for: Normal appearance Cardiovascular/Chest: Positive for: Regular Rate, Rhythm Respiratory: Positive for: Normal Breath Sounds Extremity: Positive for: Other (mild swelling to right knee with full rom, no calf swelling or tenderness, normal distal sensation right lower extremity) Neurologic/Psych: Positive for: Alert, Other (intoxicated, answers some questions appropriately) - Laboratory Results Result Diagrams: 08/01/17 23:37 08/01/17 23:37 - ECG Interpretation Of ECG: SNR 96 bpm, no acute finding, reviewed by PA and ED attending. O2 Sat by Pulse Oximetry: 99 Pulse Ox Interpretation: Normal - Other Rad Bedside chest X-Ray: Interpreted by Me, Viewed By Me X-Ray Interpretation: no acute finding Medical Decision Making Medical Decision Makin61 year old intoxicated male with chronic right knee pain, here for crisis eval Plan: 1:1 bedside observation CBC CMP UDS UA Fingerstick BAL PO motrin for knee pain Crisis consult Glucose POC: 104 As per crisis counselor and psychiatrist restrictive preparation operator, Dr. Joaquin, patient does meet criteria for admission and agrees to sign himself in. Patient is medically stable for psychiatric admission. Disposition - Clinical Impression Clinical Impression: Schizophrenia, Bipolar disorder - Patient ED Disposition Is Patient to be Admitted: Yes - Disposition Disposition Time: 00:46 Condition: FAIR - Pt Status Changed To: Hospital Disposition Of: Inpatient - Admit Certification Admit to Inpatient:: After my assessment, the patient will require hospitalization for at least two midnights. This is because of the severity of symptoms shown, intensity of services needed, and/or the medical risk in this patient being treated as an outpatient.
[2017-08-02 00:01] LABS: BASO # 0.2 K/uL (0.0-0.2); BASO % 2.4 % (0.0-2.0); EOS # 0.5 K/uL (0.0-0.7); EOS % 7.5 % (0.0-4.0); LYMPH # 2.3 K/uL (1.0-4.3); LYMPH % 34.8 % (20.0-40.0); MEAN CELL VOLUME 92.1 fl (80.0-94.0); MEAN CORPUSCULAR HEMOGLOBIN 30.3 pg (27.0-31.0); MEAN CORPUSCULAR HGB CONC 32.9 g/dL (33.0-37.0); MEAN PLATELET VOLUME 8.1 fl (7.2-11.7); MONO # 0.9 K/uL (0.0-0.8); MONO % 14.3 % (0.0-10.0); NEUT # 2.7 K/uL (1.8-7.0); NRBC % 0.1 % (0.0-0.0); WHITE BLOOD COUNT 6.6 K/uL (4.8-10.8)
[2017-08-02 00:04] LABS: ALKALINE PHOSPHATASE 176 U/L (38-126); ALT/SGPT 89 U/L (21-72); AST/SGOT 90 U/L (17-59); BILIRUBIN,TOTAL 0.3 mg/dl (0.2-1.3); BLOOD UREA NITROGEN 9 mg/dl (9-20); CALCIUM 8.9 mg/dL (8.4-10.2); CARBON DIOXIDE 23 mmol/L (22-30); CHLORIDE 106 mmol/L (98-107); GFR AFRICAN-AMERICAN > 60; GLUCOSE,RANDOM 103 mg/dL (75-110); POTASSIUM 3.9 MMOL/L (3.6-5.0); SODIUM 143 mmol/l (132-148); TOTAL PROTEIN 8.4 G/DL (6.3-8.2)
[2017-08-02 01:25] LABS: RBC URINE 1 /hpf (0-3); URINE BACTERIA RARE (<OCC); URINE BILIRUBIN NEGATIVE (NEGATIVE); URINE BLOOD NEGATIVE (NEGATIVE); URINE CALCIUM OXALATE CRYSTALS RARE /hpf (<OCC); URINE COLOR YELLOW (YELLOW); URINE GLUCOSE (UA) NEG (Normal); URINE KETONE NEGATIVE (NEGATIVE); URINE LEUKOCYTE ESTERASE NEG Leu/uL (Negative); URINE PROTEIN NEGATIVE (NEGATIVE); URINE UROBILINOGEN 0.2-1.0 mg/dL (0.2-1.0); WBC URINE 1 /hpf (0-5)
[2017-08-02] MEDS ORDERED: DiphenhydrAMINE 50 mg/ml Inj IM PRN (01:37)
[2017-08-02] MEDS ORDERED: Magnesium Hydroxide Susp 30 ml UD PO PRN (01:37)
[2017-08-02 03:20] VITALS: O2SAT 100
--- NOTE | 2017-08-02 03:58 | PCM.BM ---
<Rodrick Angeles - Last Filed: 08/02/17 03:55> Treatment Plan Problems - Problems identified on initial assessmt Hopelessness/Helplessness Date Initiated: 08/02/17 Time Initiated: 03:56 Assessment reference: NA Status: Active Priority: 1 Feeling of Worthlessness Date Initiated: 08/02/17 Time Initiated: 03:57 Assessment reference: NA Status: Active Priority: 2 Treatment assets and liabiliti Patient Assests: cooperative, self-reliant, ADL independent, negotiates basic needs Patient Liabilities: financial problems, poor support system, substance abuse - Milieu Protocol Maintain good personal hygiene: daily Encourage regular showers, daily Remind patient to perform daily oral care, daily Assist patient to perform ADL's Maintain personal safety: every shift Educate patient to report safety concerns to staff, every shift Monitor environment for contraband/sharps Medication safety: Monitor for expected outcome, potential side effects: every shift, Assess barriers to learning: every shift, Assess readiness for medication education: every shift <Bebe Escamilla - Last Filed: 08/04/17 16:13> Treatment assets and liabiliti Patient Assests: adapts well, cooperative, self-reliant, ADL independent, negotiates basic needs, good past tx response, cognitively intact, good interpersonal skills Patient Liabilities: financial problems, poor support system, substance abuse, other (recently homeless) Family Contact Family involvement: Famliy/SO not involved Family contact: Patient declines to allow family contact at present - Outside Agency Agency 1 Care involvment: Following patient during stay, Other Agency contact name: [facility] Agency contact number: ([phone]) - Goals for Treatment Patient goals for treatment: Patient continues to reports symptoms of withdrawal. Patient requesting to be referred to inpatient substance abuse treatment but expresses understanding that being discharged directly from [facility] to a rehab is not guaranteed. Patient to continue stabilization on [facility] through medication management and group/supportive therapy. Patient to be encouraged to attend groups regularly to promote self-awareness, sobriety, and improve insight , coping skills and self-esteem. Patient to be provided with referral for appropriate level of aftercare to reduce risk of future hospitalizations and ensure safety in the community. Discharge/Continuing Care - Education Needs Education Needs: Patient Medication, Patient Coping Skills, Patient Community resources, Patient Aftercare Safety Plan - Discharge Discharge Criteria: Tolerates medication w/o severe side effects, Free of Suicidal thoughts, Normal sleep pattern, Ability to care for self, No longer exhibiting s/s of withdrawal, Reduction of target symptoms Discharge to:: Detention, Other - Additional Comments 08/04/17 16:16 Referrals to inpatient rehabs to be initiated during patients stabilization on 3NP. Patient to be provided with outpatient services and contact information for rehabs upon discharge in the event that a rehab bed is not made available prior to discharge. - Treatment Team Participation Was Patient/Family/SO present at Treatment Team Meeting: Yes <El Mares - Last Filed: 08/05/17 10:58> - Diagnosis (1) Alcohol abuse with alcohol-induced mood disorder Status: Acute Interventions: 08/05/17 10:57 motivational interviewing, group therapy (2) Bipolar disorder Status: Acute Interventions: 08/05/17 10:57 pharmacotherapy
--- NOTE | 2017-08-02 07:35 | RAD ---
HISTORY: clearance COMPARISON: Chest radiographs 02/11/2017. FINDINGS: LUNGS: There is apparent interval resolution of left basilar atelectasis or infiltrate with remaining lung giraldo stable and unremarkable bilaterally otherwise. PLEURA: No significant pleural effusion identified, no pneumothorax apparent. CARDIOVASCULAR: Normal. OSSEOUS STRUCTURES: No significant abnormalities. VISUALIZED UPPER ABDOMEN: Normal. OTHER FINDINGS: None. IMPRESSION: Resolution of prior left basilar infiltrate. No interval infiltrate, pleural effusion, pneumothorax or cardiomegaly appreciable.
[2017-08-02] MEDS: Multivitamin With Minerals Tab PO SCH (09:08)
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
--- NOTE | 2017-08-02 13:46 | PCM.PSYCH ---
Initial Psychiatric Evaluation - Initial Psychiatric Evaluation Type of Admission: Voluntary Chief Complaint (in patient's own words): I AM HEARING VOICES AND I RELAPSED ON ALCOHOL Patient's Reaction to Hospitalization: PT PRESENTED TO ER REQUESTING HELP History of Present Illness and Precipitating Events: Pt is a 61 year old male, father of 3 adults children whom he has not contact with for quite long time. Pt presented to ED via EMS, initially pt complained of "Knee Pain" pt then reported he was actively suidicidal and he was "experiencing non command auditory hallucinations . " pt reported he was non compliant with medications or follow up started to feel depressed , relapsed on alcohol, using every day, started to experience suicidal ideations, pt denied manic symptoms urine toxicology was positive for cocaine Current Medications: Active Medications Generic Name Dose Route Start Last Admin Trade Name Freq PRN Reason Stop Dose Admin Acetaminophen 650 mg 08/02/17 01:37 Tylenol 325mg Tab PO Q4 PRN Pain, moderate (4-7) Diphenhydramine HCl 50 mg 08/02/17 01:37 Benadryl IM Q6 PRN Extrapyramidal S/S Unable PO Diphenhydramine HCl 50 mg 08/02/17 01:37 Benadryl PO Q6 PRN Extrapyramidal Symptoms Folic Acid 1 mg 08/02/17 09:00 08/02/17 09:08 Folic Acid PO 1 mg DAILY REAL Administration Gabapentin 100 mg 08/02/17 13:00 Neurontin PO TID REAL Haloperidol 5 mg 08/02/17 01:37 Haldol PO Q4 PRN Agitation Haloperidol Lactate 5 mg 08/02/17 01:37 Haldol IM Q4 PRN Agitation, Unable to Take PO Lorazepam 2 mg 08/02/17 01:37 Ativan IM Q4 PRN Anxiety/Agitation,Unable PO Lorazepam 1 mg 08/02/17 01:37 Ativan PO Q4 PRN Anxiety/Agitation Lorazepam 1 mg 08/02/17 09:00 08/02/17 09:08 Ativan PO 1 mg TID REAL Administration Magnesium Hydroxide 30 ml 08/02/17 01:37 Milk Of Magnesia PO HS PRN Constipation Multivitamins/Minerals 1 tab 08/02/17 09:00 08/02/17 09:08 Therapeutic-M Tab PO 1 tab DAILY REAL Administration Quetiapine Fumarate 200 mg 08/02/17 22:00 Seroquel PO HS COUNT INCLUDES [facility] Thiamine HCl 100 mg 08/02/17 09:00 08/02/17 09:08 Vitamin B1 Tab PO 100 mg DAILY REAL Administration Past Psychiatric History - Past Psychiatric History Explanation of prior treatment: pt has unspecified number of psychiatric hospitalization for depression and psychosis, last on 07/13 in [facility], pt has historry of non compliance with treatment History of Abuse: denied History of Family Illness: non reported Pertinent Medical Hx (Current Medical&Sleep Prob, Allergies): Allergies Allergy/AdvReac Type Severity Reaction Status Date / Time Penicillins Allergy convulsions Verified 10/12/16 12:35 Folic Acid 1 mg PO DAILY #30 tab 02/24/17 Gabapentin [Neurontin] 300 mg PO TID #90 cap 02/24/17 [place] Carbonate [[place] Carbonate 300MG] 300 mg PO TID #90 cap 02/24/17 QUEtiapine [SEROquel] 400 mg PO HS #60 tab 02/24/17 Thiamine [Vitamin B1 Tab] 100 mg PO DAILY #30 tab 02/24/17 Tamsulosin [Flomax] 0.4 mg PO DAILY 08/02/17 Mental Status Examination - Personal Presentation Personal Presentation: Looks older than stated age - Affect Affect: Constricted, Depressed - Motor Activity Motor Activity: Psychomotor Retardation - Reliability in Providing Information Reliability in Providing Information: Poor, due to alteration in thoughts, Poor , due to altered mood - Speech Speech: Relevant - Mood Mood: Depressed, Anxious - Formal Thought Process Formal Thought Process: Hallucinations Additional comments: pt reported non command auditory hallucinations - Hallucinations/Delusions Hallucinations: Auditory - Obsessions/Compulsions Obsessions: No Compulsions: No - Cognitive Functions Orientation: Person, Place Sensorium: Alert Attention/Concentration: Easily distracted Abstract Thinking: [place] Judgement: Imparied, as evidence by: Poor judgement Memory: Recent intact, as evidence by: Ability to recall events of the day - Risk Risk: Withdrawal, Diminished functioning - Strength & Assets Inventory Strength & Assets Inventory: Life experience - Limitations Additional comments: non compliance DSM 5 DX - DSM 5 DSM 5 Diagnosis: alcohol induced mood disorder alcohol use disorder 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
[2017-08-02] MEDS: Pantoprazole 20 mg EC Tab PO SCH (17:59)
--- NOTE | 2017-08-02 22:09 | CARD ---
APPROVED REPORT EKG Measurement Heart [id number] <Conclusion> Normal sinus rhythm Normal ECG
[2017-08-03 08:24] LABS: CHOLESTEROL 154 mg/dL (0-199)
[2017-08-03] MEDS: Multivitamin With Minerals Tab PO SCH (09:44)
[2017-08-03] MEDS: Pantoprazole 20 mg EC Tab PO SCH (09:44)
--- NOTE | 2017-08-03 11:55 | PCM.PYCHPN ---
Psychiatric Progress Note - Psychiatric Progress Note Patient seen today, length of contact: PT EVALUATED DISCUSSED WITH TEAM CHART REVIEWED Patient Chief Complaint: I AM STILL DEPRESSED AND HEARING VOICES Problems Identified/Issues Discussed: PT ON EVALUATION SEEN IN BED, REPORTED FEELING DEPRESSED DISCUSSED POSSIBLY RELATED TO ALCOHOL WITHDRAWAL PT REPORTED NON COMMAND AUDITORY HALLUCINATIONS, DENIED ANY CURRENT SUICIDAL OR HOMICIDAL IDEATIONS NO REPORTED SIDE EFFECTS OF MEDICATIONS ENCOURAGED PATIENT TO ATTEND GROUPS MOTIVATIONAL THERAPY AND GROUP THERAPY DSM 5 Symptoms Update: ALCOHOL INDUCED MOOD DISORDER WITH DEPRESSIVE FEATURES ALCOHOL INDUCED PSYCHOTIC DISORDER WITH HALLUCINATIONS Medication Change: Yes (INCREASE SEROQUEL TO 400MG QHS) Medical Record Reviewed: Yes Mental Status Examination - Cognitive Function Orientation: Person, Place Attention: WNL Concentration: WNL Association: WNL Fund of Knowledge: Poor Decription of patient's judgement and insights: IMPAIRED INSIGHT AND POOR JUDGMENT - Mood Mood: Depressed, Anxious - Affect Affect: Constricted, Depressed - Speech Speech: Soft - Formal Thought Process Formal Thought Process: Hallucinations Psychotic Thoughts and Behaviors: PT REPORTED NON COMMAND AUDITORY HALLUCINATIONS - Homicidal Ideation Homicidal Ideation: No Goal/Treatment Plan - Goal/Treatment Plan Need for Continued Stay: Discharge may exacerbated symptoms Progress Toward Problem(s) and Goals/Treatment Plan: pt will be continued on alcohol withdrawal protocol pt will be monitored for symptoms and signs of alcohol withdrawal increase seroquel to 300mg qhs with plan to uptitrate gradually continue neurontin 100mg tid motivational and group therapy provided monitor patient for psychopharmacological effects and side effect profile referral to rehab on discharge
[2017-08-04] MEDS: Pantoprazole 20 mg EC Tab PO SCH (08:26)
[2017-08-04] MEDS: Multivitamin With Minerals Tab PO SCH (08:26)
--- NOTE | 2017-08-04 11:15 | PCM.PYCHPN ---
Psychiatric Progress Note - Psychiatric Progress Note Patient seen today, length of contact: PT EVALUATED DISCUSSED WITH TEAM CHART REVIEWED Patient Chief Complaint: I FEEL TIRED AND i STILL HEAR VOICES Problems Identified/Issues Discussed: PT EVALUATED WITH THE TREATMENT TEAM, REPORTED CONTINUES TO HAVE NON COMMAND AUDITORY HALLUCINATIONS, ALSO REPORTED FEELING TIRED WITH LOW ENERGY DEPRESSED AND ANHEDONIC, PT DENIED ANY CURRENT SUICIDAL OR HOMICIDAL IDEATIONS ENCOURAGED PT TO ATTEND GROUPS CONSIDER CAMPRAL AND INPATIENT REHAB ON DISCHARGE Medical Problems: pt COMPLAINS OF UNILATERAL LOWER EXTREMITY PAIN, REVIEWED FAMILY PRACTICE CONSULT, RELATED TO ARTHRITIS, PT PLACED ON IBUPROFEN DSM 5 Symptoms Update: ALCOHOL INDUCED MOOD DISORDER WITH DEPRESSIVE FEATURES COCAINE INDUCED PSYCHOTIC DISORDER WITH HALLUCINATIONS DEPRESSION, RULE OUT BIPOLAR DISORDER Medication Change: Yes (DISCONTINUE SEROQUEL START ABILIFY) Medical Record Reviewed: Yes Mental Status Examination - Cognitive Function Orientation: Person, Place Attention: WNL Concentration: WNL Association: WNL Fund of Knowledge: Poor Decription of patient's judgement and insights: FAIR INSIGHT AND POOR JUDGMENT - Mood Mood: Depressed, Anxious - Affect Affect: Constricted, Depressed - Speech Speech: Soft - Formal Thought Process Formal Thought Process: Hallucinations Psychotic Thoughts and Behaviors: PT REPORTED NON COMMAND AUDITORY HALLUCINATIONS - Suicidal Ideation Suicidal Ideation: No - Homicidal Ideation Homicidal Ideation: No Goal/Treatment Plan - Goal/Treatment Plan Need for Continued Stay: Discharge may exacerbated symptoms Progress Toward Problem(s) and Goals/Treatment Plan: discontinue seroquel , start abilify 5mg with plan to uptitrate continue neurontin 100mg tid trazdone 50mgqhs motivational and group therapy provided monitor patient for psychopharmacological effects and side effect profile referral to rehab on discharge
[2017-08-05] MEDS: Pantoprazole 20 mg EC Tab PO SCH (09:12)
[2017-08-05] MEDS: Multivitamin With Minerals Tab PO SCH (09:12)
--- NOTE | 2017-08-05 11:15 | PCM.PYCHPN ---
Psychiatric Progress Note - Psychiatric Progress Note Patient seen today, length of contact: PT EVALUATED DISCUSSED WITH TEAM CHART REVIEWED Patient Chief Complaint: the voices are gone but i am still depressed Problems Identified/Issues Discussed: PT EVALUATED SEEN ON THE UNIT, ATTENDING GROUPS, LESS ISOLATIVE PATIENT REPORTED CLEARING OFF OF THE AUDITORY HALLUCINATIONS, HOWEVER INDICATED CONTINUES TO FEEL DOWN PATIENT STATED HE RELATES HIS DEPRESSION TOO HIS CURRENT LIVING SITUATION ALSO WITH MOTIVATIONAL INTERVIEWING ABLE TO VERBALIZE ALCOHOL A REASON FOR POOR QUALITY OF LIVING, ANDRÉSE REN PATIENT ATTENDING AA MEETINGS ON DISCHARGE, PT AGREED DENIED ANY CURRENT SUICIDAL OR HOMICIDAL IDEATIONS DENIED SIDE EFFECTS OF MEDICATIONS Medical Problems: pt COMPLAINS OF UNILATERAL LOWER EXTREMITY PAIN, REVIEWED FAMILY PRACTICE CONSULT, RELATED TO ARTHRITIS, PT PLACED ON IBUPROFEN DSM 5 Symptoms Update: ALCOHOL INDUCED MOOD DISORDER WITH DEPRESSIVE FEATURES ALCOHOL USE DISORDER HISTORY OF BIPOLAR DISORDER Medication Change: Yes (INCREASE ABILIFY TO 10MG) Medical Record Reviewed: Yes Mental Status Examination - Cognitive Function Orientation: Person, Place Attention: WNL Concentration: WNL Association: WNL Fund of Knowledge: WNL Decription of patient's judgement and insights: FAIR INSIGHT AND POOR JUDGMENT - Mood Mood: Depressed - Affect Affect: Constricted, Depressed - Speech Speech: Soft - Formal Thought Process Formal Thought Process: No Impairment Psychotic Thoughts and Behaviors: PT DENIED ANY CURRENT PERCEPTUAL DISTURBANCES, NON ELICITED - Suicidal Ideation Suicidal Ideation: No - Homicidal Ideation Homicidal Ideation: No Goal/Treatment Plan - Goal/Treatment Plan Need for Continued Stay: Discharge may exacerbated symptoms Progress Toward Problem(s) and Goals/Treatment Plan: PT IS CURRENTLY OFF THE ALCOHOL WITHDRAWAL PROTOCOL NO CURRENT SIGNS OR SYMPTOMS OF ALCOHOL WITHDRAWAL INCREASE ABILIFY TO 10MG FOR DEPRESSION CONTINUE WITH TRAZDONE AND NEURONRIN MONITOR PT FOR PSYCHOPHARMACOLOGICAL EFFECTS AND SIDE EFFECT PROFILE MOTIVATIONAL AND GROUP THERAPY REFERRAL TO REHAB ON DISCHARGE Estimated Date of D/C: 08/09/17
[2017-08-06] MEDS: Multivitamin With Minerals Tab PO SCH (08:34)
[2017-08-06] MEDS: Pantoprazole 20 mg EC Tab PO SCH (08:35)
[2017-08-06 11:37] LABS: T4 8.75 ug/dl (5.5-11.0)
[2017-08-06 11:51] LABS: THYROID STIMULATING HORMONE 2.64 mIU/ML (0.46-4.68)
--- NOTE | 2017-08-06 13:34 | PCM.PYCHPN ---
Psychiatric Progress Note - Psychiatric Progress Note Patient seen today, length of contact: PT EVALUATED DISCUSSED WITH TEAM CHART REVIEWED Patient Chief Complaint: I STILL FEEL DOWN Problems Identified/Issues Discussed: PT , EVALUATED , REPORTED MOOD IS BETTER BUT CONTINUES TO HAVE DOMN EPISODES RELATING THERE TO HIS CURRENT LIVING SITUATION, REPORTED FEELING LESS SLEEPY WHEN STARTED ON ABILIFY PT ATTENDING GROUPS, NO REPORTED SIDE EFFECTS OF MEDICATIONS DENIED ANY CURRENT SUICIDAL OR HOMICIDAL IDEATIONS Medical Problems: pt COMPLAINS OF UNILATERAL LOWER EXTREMITY PAIN, REVIEWED FAMILY PRACTICE CONSULT, RELATED TO ARTHRITIS, PT PLACED ON IBUPROFEN DSM 5 Symptoms Update: DEPRESSION ALCOHOL INDUCED MOOD DISORDER WITH DEPRESSIVE FEATURES Medication Change: No Medical Record Reviewed: Yes Mental Status Examination - Cognitive Function Orientation: Person, Place Attention: WNL Concentration: WNL Association: WNL Fund of Knowledge: WN Decription of patient's judgement and insights: FAIR INSIGHT AND POOR JUDGMENT - Mood Mood: Depressed - Affect Affect: Constricted, Depressed - Speech Speech: Soft - Formal Thought Process Formal Thought Process: No Impairment Psychotic Thoughts and Behaviors: PT DENIED ANY CURRENT PERCEPTUAL DISTURBANCES, NON ELICITED - Suicidal Ideation Suicidal Ideation: No - Homicidal Ideation Homicidal Ideation: No Goal/Treatment Plan - Goal/Treatment Plan Need for Continued Stay: Discharge may exacerbated symptoms Progress Toward Problem(s) and Goals/Treatment Plan: CONTINUE WITH ABILIFY TO 10MG FOR DEPRESSION AND MOOD STABILIZATION CONTINUE WITH TRAZDONE AND NEURONRIN MONITOR PT FOR PSYCHOPHARMACOLOGICAL EFFECTS AND SIDE EFFECT PROFILE MOTIVATIONAL AND GROUP THERAPY REFERRAL TO REHAB ON DISCHARGE Estimated Date of D/C: 08/09/17
--- NOTE | 2017-08-07 09:15 | PCM.PYCHPN ---
Psychiatric Progress Note - Psychiatric Progress Note Patient seen today, length of contact: Patient evaluated, case discussed w/ team , chart reviewed Patient Chief Complaint: "I'm still depressed." Problems Identified/Issues Discussed: Patient reports that he continues to feel depressed w/ difficulty sleeping at night. He states that he has taken Trazodone at higher doses in the past, which has been helpful for his insomnia. He reports that he continues to have auditory hallucinations of someone laughing. No VH/paranoia/SI/HI. He denies adverse effects to current medications. Medication Change: Yes (Increase Trazodone to 100 mg PO HS) Medical Record Reviewed: Yes Mental Status Examination - Cognitive Function Orientation: Person, Place, Situation, Time Memory: Intact Attention: WNL Concentration: WNL Association: WNL Fund of Knowledge: WNL - Mood Mood: Depressed - Affect Affect: Constricted, Depressed - Speech Speech: Soft - Formal Thought Process Formal Thought Process: Hallucinations Psychotic Thoughts and Behaviors: +AH of laughter - Suicidal Ideation Suicidal Ideation: No - Homicidal Ideation Homicidal Ideation: No Goal/Treatment Plan - Goal/Treatment Plan Need for Continued Stay: Discharge may exacerbated symptoms Progress Toward Problem(s) and Goals/Treatment Plan: Alcohol Induced Mood Disorder w/ Depressive Features -Individual and group therapy -Psychoeducation re: alcohol abuse -Continue Abilify 10 mg PO Daily -Increase Trazodone to 100 mg PO HS -Continue Neurontin 100 mg PO TID -Disposition planning Estimated Date of D/C: 08/09/17
[2017-08-07 09:29] VITALS: RESP 18
[2017-08-07] MEDS: Multivitamin With Minerals Tab PO SCH (09:29)
[2017-08-07] MEDS: Pantoprazole 20 mg EC Tab PO SCH (09:29)
--- NOTE | 2017-08-08 08:27 | PCM.PYCHPN ---
Psychiatric Progress Note - Psychiatric Progress Note Patient seen today, length of contact: Patient evaluated, case discussed w/ team , chart reviewed Patient Chief Complaint: "I'm feeling better." Problems Identified/Issues Discussed: Patient reports that his mood is improving. He reports improved sleep. He denies adverse effects to medications. He denies auditory hallucinations. No VH/paranoia/SI/HI. He denies adverse effects to current medications. Medication Change: No Medical Record Reviewed: Yes Mental Status Examination - Cognitive Function Orientation: Person, Place, Situation, Time Memory: Intact Attention: WNL Concentration: WNL Association: WN Fund of Knowledge: [facility] Decription of patient's judgement and insights: Fair I/J - Mood Mood: Depressed - Affect Affect: Broad - Speech Speech: Appropriate - Formal Thought Process Formal Thought Process: No Impairment Psychotic Thoughts and Behaviors: NO AH/VH/paranoia/delusions - Suicidal Ideation Suicidal Ideation: No - Homicidal Ideation Homicidal Ideation: No Goal/Treatment Plan - Goal/Treatment Plan Need for Continued Stay: Discharge may exacerbated symptoms Progress Toward Problem(s) and Goals/Treatment Plan: Alcohol Induced Mood Disorder w/ Depressive Features; patient is improving clinically. -Individual and group therapy -Psychoeducation re: alcohol abuse -Continue Abilify 10 mg PO Daily -Continue Trazodone 100 mg PO HS -Continue Neurontin 100 mg PO TID -Disposition planning Estimated Date of D/C: 08/09/17
[2017-08-08] MEDS: Pantoprazole 20 mg EC Tab PO SCH (08:50)
[2017-08-08] MEDS: Multivitamin With Minerals Tab PO SCH (08:50)
[2017-08-08 09:01] VITALS: PULSE 72
[2017-08-09] MEDS: Pantoprazole 20 mg EC Tab PO SCH (08:28)
[2017-08-09] MEDS: Multivitamin With Minerals Tab PO SCH (08:28)
[2017-08-09 09:09] VITALS: BP 129/85; TEMP 98.1
--- NOTE | 2017-08-09 09:52 | PCM.PYCHDC ---
Mental Status Examination - Mental Status Examination Orientation: Person, Place, Situation Memory: Intact Mood: Neutral Affect: Broad Speech: Appropriate Attention: WNL Concentration: WNL Association: WNL Fund of Knowledge: WNL Formal Thought Process: No Impairment Description of patient's judgement and insight: FAIR INSIGHT AND JUDGMENT Psychotic Thoughts and Behaviors: PT DENIED ANY CURRENT PERCEPTUAL DISTURBANCES, NON ELICITED Suicidal Ideation: No Current Homicidal Ideation?: No Discharge Summary - Discharge Note Reason for Hospitalization: Pt is a 61 year old male, father of 3 adults children whom he has not contact with for quite long time. Pt presented to ED via EMS, initially pt complained of "Knee Pain" pt then reported he was actively suidicidal and he was "experiencing non command auditory hallucinations . " pt reported he was non compliant with medications or follow up started to feel depressed , relapsed on alcohol, using every day, started to experience suicidal ideations, pt denied manic symptoms urine toxicology was positive for cocaine Consultations:: List each consultation separately and include: 1. Reason for request. 2. Findings. 3. Follow-up Consultations: family practice consult Summary of Hospital Course include:: 1. Description of specific treatment plan utilized for patients during their course of treatmen. 2. Summarize the time- course for resolution of acute symptoms and/or regressed behaviors. 3. Describe issues identified and worked on during hospitalization. 4. Describe medication utilized. 5. Describe medical problems identified and treated. 6. Reassessment of suicide risk Summary of Hospital Course: Pt was started on alcohol withdrawal protocol pt was started on seroquel for m,ood stabilization and for auditory hallucinations, pt however reported increased sedation because of the seroquel, accordingly it was cross titrated with abilify pt gradually showed clearing off of the auditory hallucinations, better mood started attending groups and no reported side effects of medications. on discharge mental status was stable pt denied any suicidal or homicidal ideations denied perceptual disturbances, non elicited pt referred to outpatient rehab discharge medications abilify 10mg trazdone 100mg gabapentin 100mg tid - Diagnosis (1) Alcohol abuse with alcohol-induced mood disorder Current Visit: Yes Status: Acute (2) Bipolar disorder Current Visit: Yes Status: Acute - Final Diagnosis (DSM 5) Condition upon Discharge: FAIR Disposition: HOME/ ROUTINE Follow-up Treatment Plan: outpaient clinic, pt linked to [facility] Prescriptions/Medication Reconciliation: ARIPiprazole [Abilify] 10 mg PO DAILY 30 Days #30 tab Gabapentin [Neurontin] 100 mg PO TID 30 Days #90 cap traZODone [Desyrel] 100 mg PO HS 30 Days #30 tab - Antipsychotic Medications Pt discharged on 2 or more routine antipsychotic medications: No
== END 2017-08-09 13:34 | disposition home or self-care (01) | DRG 895 ==
LOC: H.ER 22:30 → H.ERHOLD 08-02 01:02 → H.PSYCH 08-02 02:12
PROVIDERS: ADMIT Psychiatry & Neurology Psychiatry; ATTEND Psychiatry & Neurology Psychiatry
PROC: HZ52ZZZ Individual Psychotherapy for Substance Abuse Treatment, Cognitive-Behavioral (ICD-10-PCS; principal; 2017-08-02)
PROC: GZHZZZZ Group Psychotherapy (ICD-10-PCS; 2017-08-02)
PROC: GZ58ZZZ Individual Psychotherapy, Cognitive-Behavioral (ICD-10-PCS; 2017-08-02)
DX: F10.14 Alcohol abuse with alcohol-induced mood disorder (principal); R45.851 Suicidal ideations; F10.151 Alcohol abuse with alcohol-induced psychotic disorder with hallucinations; F14.959 Cocaine use, unspecified with cocaine-induced psychotic disorder, unspecified; F31.9 Bipolar disorder, unspecified; Y90.6 Blood alcohol level of 120-199 mg/100 ml; F20.9 Schizophrenia, unspecified; F43.10 Post-traumatic stress disorder, unspecified; Z91.14 Patient's other noncompliance with medication regimen; Z91.19 Patient's noncompliance with other medical treatment and regimen; G89.29 Other chronic pain; M25.561 Pain in right knee; B19.20 Unspecified viral hepatitis C without hepatic coma; E78.00 Pure hypercholesterolemia, unspecified; K29.70 Gastritis, unspecified, without bleeding; G47.00 Insomnia, unspecified; M19.90 Unspecified osteoarthritis, unspecified site; Z86.73 Personal history of transient ischemic attack (TIA), and cerebral infarction without residual deficits

== ENCOUNTER 2017-10-04 19:25 | Observation (INO) | payer MEDICARE, OTHER ==
[2017-10-04 19:25] VITALS: BMI 24.7
[2017-10-04] MEDS ORDERED: Glucagon Recombinant 1 mg Inj IV STA (20:15)
[2017-10-04] MEDS ORDERED: Sodium Chloride 0.9% 1,000 ML IV STA (20:21)
--- NOTE | 2017-10-04 20:24 | ED PDOC ---
HPI: CCC, URI, Sore Throat Time Seen by Provider: 10/04/17 20:15 Chief Complaint (Nursing): ENT Problem Chief Complaint (Provider): GI problem History Per: Patient History/Exam Limitations: no limitations Onset/Duration Of Symptoms: Hrs Additional Complaint(s): Patient is a 62 y/o male with no significant past medical history presenting to the emergency department for difficulty swallowing. Reports that as he was eating pork, he felt food stuck in his throat and was not able to swallow it completely. He notes having similar events happen in the past and that they had to be resolved by a specialist who helped remove the food. Denies abdominal pain , shortness of breath, or other complaints. PCP: none provided. Past Medical History Reviewed: Historical Data, Nursing Documentation, Vital Signs Vital Signs: Last Vital Signs Temp 97.2 F L 10/04/17 19:32 Pulse 89 10/04/17 19:32 Resp 16 10/04/17 19:32 BP 144/77 10/04/17 19:32 Pulse Ox 96 10/04/17 19:32 - Medical History PMH: Anxiety, Arthritis, Benign Prostatic Hyperplasia, Bipolar Disorder, CVA, Depression, Hypercholesterolemia, Paranoia, Pneumonia, Post Traumatic Stress Disorder, Seizures (alcohol withdrawl) Denies: Asthma, Bronchitis, COPD, Diabetes, Emphysema, Hepatitis, HIV, HTN, Pulmonary Embolism, Chronic Kidney Disease, Sexually Transmitted Disease, Sleep Apnea Comment Only: Schizophrenia (per old chart but pt denies) - Surgical History Surgical History: Appendectomy, Endoscopy, Tonsillectomy - Family History Family History: States: Unknown Family Hx - Immunization History Hx Tetanus Toxoid Vaccination: Yes Hx Influenza Vaccination: Yes Hx Pneumococcal Vaccination: No - Home Medications Home Medications: Ambulatory Orders Medication Instructions Recorded traZODone [Desyrel] 100 mg PO HS 30 Days #30 tab 08/09/17 QUEtiapine [SEROquel] 50 mg PO HS #14 tab 08/16/17 - Allergies Allergies/Adverse Reactions: Allergies Allergy/AdvReac Type Severity Reaction Status Date / Time Penicillins Allergy convulsions Verified 10/02/17 19:21 - ECG O2 Sat by Pulse Oximetry: 96 Disposition - Disposition
--- NOTE | 2017-10-04 20:25 | ED PDOC ---
HPI: General Adult Time Seen by Provider: 10/04/17 20:15 Chief Complaint (Nursing): ENT Problem Chief Complaint (Provider): GI problem History Per: Patient History/Exam Limitations: no limitations Onset/Duration Of Symptoms: Hrs Additional Complaint(s): Patient is a 62 y/o male with no significant past medical history presenting to the emergency department for a GI problem. Reports that as he was eating pork, he felt food stuck in his throat and he was not able to swallow it completely. He notes having similar events occurring in the past that had to be resolved by a specialist who helped remove the food. Denies abdominal pain, shortness of breath, or other complaints. PCP: none provided. Past Medical History Reviewed: Historical Data, Nursing Documentation, Vital Signs Vital Signs: Last Vital Signs Temp 97.2 F L 10/04/17 19:32 Pulse 89 10/04/17 19:32 Resp 16 10/04/17 19:32 BP 144/77 10/04/17 19:32 Pulse Ox 96 10/04/17 20:59 - Medical History PMH: Anxiety, Arthritis, Benign Prostatic Hyperplasia, Bipolar Disorder, CVA, Depression, Hypercholesterolemia, Paranoia, Pneumonia, Post Traumatic Stress Disorder, Seizures (alcohol withdrawl) Denies: Asthma, Bronchitis, COPD, Diabetes, Emphysema, Hepatitis, HIV, HTN, Pulmonary Embolism, Chronic Kidney Disease, Sexually Transmitted Disease, Sleep Apnea Comment Only: Schizophrenia (per old chart but pt denies) - Surgical History Surgical History: Appendectomy, Endoscopy, Tonsillectomy - Family History Family History: States: Unknown Family Hx - Immunization History Hx Tetanus Toxoid Vaccination: Yes Hx Influenza Vaccination: Yes Hx Pneumococcal Vaccination: No - Home Medications Home Medications: Ambulatory Orders Medication Instructions Recorded traZODone [Desyrel] 100 mg PO HS 30 Days #30 tab 08/09/17 QUEtiapine [SEROquel] 50 mg PO HS #14 tab 08/16/17 - Allergies Allergies/Adverse Reactions: Allergies Allergy/AdvReac Type Severity Reaction Status Date / Time Penicillins Allergy convulsions Verified 10/02/17 19:21 Review of Systems ROS Statement: Except As Marked, All Systems Reviewed And Found Negative Respiratory: Negative for: Shortness of Breath Gastrointestinal: Positive for: Other (food stuck in throat). Negative for: Abdominal Pain Physical Exam - Reviewed Nursing Documentation Reviewed: Yes Vital Signs Reviewed: Yes - Physical Exam Appears: Positive for: Well, Non-toxic, No Acute Distress Head Exam: Positive for: ATRAUMATIC, NORMAL INSPECTION, NORMOCEPHALIC Skin: Positive for: Normal Color, Warm, Dry Eye Exam: Positive for: Normal appearance ENT: Positive for: Normal ENT Inspection Neck: Positive for: Normal, Painless ROM Cardiovascular/Chest: Positive for: Regular Rate, Rhythm Respiratory: Negative for: Accessory Muscle Use, Respiratory Distress Gastrointestinal/Abdominal: Positive for: Normal Exam, Soft. Negative for: Tenderness Extremity: Positive for: Normal ROM. Negative for: Pedal Edema Neurologic/Psych: Positive for: Alert, Oriented (x3) - Laboratory Results Result Diagrams: 10/04/17 21:14 10/04/17 21:14 - ECG O2 Sat by Pulse Oximetry: 96 (RA) Pulse Ox Interpretation: Normal - Progress ED Course And Treament: ADMIT TO DR. NUNEZ. DR. LEACH TO TAKE PATIENT TO OR FOR REMOVAL OF FOREIGN BODY Medical Decision Making Medical Decision Making: Time: 20:15 Initial impression: GI problem Initial plan: Type and Screen BMP CBC PTT Prothrombin Time CXR Glucagon 1 mg IV Normal Saline 1 mL IV Reevaluation 20:25 Patient attempted to dislodge food with induced vomiting in the ED, but only saliva was produced. ~ Scribe Attestation: Documented by Laura Solorio, acting as a scribe for NESHA Tate. Provider Scribe Attestation: All medical record entries made by the Scribe were at my direction and personally dictated by me. I have reviewed the chart and agree that the record accurately reflects my personal performance of the history, physical exam, medical decision making, and the department course for this patient. I have also personally directed, reviewed, and agree with the discharge instructions and disposition. Disposition - Clinical Impression Clinical Impression: Impacted esophageal foreign body - Patient ED Disposition Is Patient to be Admitted: Yes - Disposition Disposition Time: 21:41 Condition: FAIR - Pt Status Changed To: Hospital Disposition Of: Observation
[2017-10-04] MEDS ORDERED: Glucagon Recombinant 1 mg Inj ONE (20:47)
[2017-10-04 21:29] LABS: BASO # 0.1 K/uL (0.0-0.2); BASO % 1.1 % (0.0-2.0); EOS # 0.1 K/uL (0.0-0.7); EOS % 1.6 % (0.0-4.0); HEMOGLOBIN 14.9 g/dL (12.0-18.0); LYMPH % 23.1 % (20.0-40.0); MEAN CELL VOLUME 91.3 fl (80.0-94.0); MEAN CORPUSCULAR HEMOGLOBIN 30.3 pg (27.0-31.0); MEAN CORPUSCULAR HGB CONC 33.2 g/dL (33.0-37.0); MEAN PLATELET VOLUME 8.6 fl (7.2-11.7); MONO # 0.9 K/uL (0.0-0.8); MONO % 10.5 % (0.0-10.0); NEUT # 5.5 K/uL (1.8-7.0); NEUT % 63.7 % (50.0-75.0); NRBC % 0.9 % (0.0-0.0); RBC 4.92 Mil/uL (4.40-5.90); RED CELL DISTRIBUTION WIDTH 13.4 % (11.5-14.5); WHITE BLOOD COUNT 8.7 K/uL (4.8-10.8)
[2017-10-04 21:32] LABS: INR 1.1 (0.9-1.2); PARTIAL THROMBOPLASTIN TIME 30.2 Seconds (25.6-37.1); PROTHROMBIN TIME 11.7 Seconds (9.8-13.1)
[2017-10-04 21:43] LABS: BLOOD UREA NITROGEN 5 mg/dl (9-20); CALCIUM 9.1 mg/dL (8.4-10.2); GFR AFRICAN-AMERICAN > 60; GFR NON-AFRICAN AMERICAN > 60
--- NOTE | 2017-10-04 22:36 | CP.PCM.HP ---
History of Present Illness - History of Present Illness History of Present Illness: PCP: None Chief Complaint: Food stuck in esophagus HPI: 62 years old male with hx of depression, BPH; CVD and HTN comes with report of Pork stuck in his throat while eating making it difficult to swallow. He tried drinking liquid but this was not helping. He has hx of food material being stuck in his throat one year ago. This was removed by endoscopy. No SOB, abdominal pain, nausea nor vomits. PMH: Anxiety, Depression; Arthritis; BPH; Bipolar;CVD; HLD; Paronoia PTSD; Seizure PSH: Appendectomy; Tonsillectomy; Endoscopy SH: Smokes ; Drinks Alcohol regularly; Substance abuse with cocaine; Alcohol abuse FH: States: Unknown Family Hx Allergies: PCN Medication: Reviewed Present on Admission - Present on Admission Any Indicators Present on Admission: No History of DVT/PE: No History of Uncontrolled Diabetes: No Urinary Catheter: No Decubitus Ulcer Present: No Review of Systems - Constitutional Constitutional: absent: Anorexia, Chills, Fatigue, Fever, Headache - EENT Eyes: Requires Corrective Lenses. absent: Diplopia, Floaters, Photophobia Ears: absent: Decreased Hearing, Ear Discharge, Tinnitus Nose/Mouth/Throat: Dysphagia. absent: Epistaxis, Nasal Congestion - Cardiovascular Cardiovascular: absent: Chest Pain, Dyspnea, Edema - Respiratory Respiratory: absent: Cough, Wheezing, Stridor, Chest Congestion - Gastrointestinal Gastrointestinal: Dysphagia. absent: Constipation, Diarrhea, Nausea, Vomiting - Genitourinary Genitourinary: absent: Dysuria, Flank Pain, Hematuria, Urinary Frequency - Musculoskeletal Musculoskeletal: absent: Myalgias, Numbness, Stiffness - Integumentary Integumentary: absent: Pruritus, Rash, Skin Ulcer, Sores, Striae, Swelling - Neurological Neurological: absent: Confusion, Dizziness, Focal Weakness, Vertigo - Psychiatric Psychiatric: Anxiety, Depression, Paranoia - Endocrine Endocrine: absent: Palpitations, Polydipsia, Polyphagia, Polyuria - Hematologic/Lymphatic Hematologic: absent: Easy Bleeding, Easy Bruising Past Patient History - Infectious Disease Hx of Infectious Diseases: None - Tetanus Immunizations Tetanus Immunization: Unknown - Past Medical History & Family History Past Medical History?: Yes - Past Social History Smoking Status: Current Some Days Smoker Chewing Tobacco Use: No Cigar Use: No Alcohol: Social - CARDIAC Hx Hypercholesterolemia: Yes Hx Hypertension: No - PULMONARY Hx Asthma: No Hx Bronchitis: No Hx Chronic Obstructive Pulmonary Disease (COPD): No Hx Emphysema: No Hx Pneumonia: Yes Hx Pulmonary Embolism: No Hx Sleep Apnea: No - NEUROLOGICAL Hx Seizures: Yes (alcohol withdrawl) - HEENT Hx HEENT Problems: No Other/Comment: wears reading glasses - RENAL Hx Chronic Kidney Disease: No - ENDOCRINE/METABOLIC Hx Endocrine Disorders: No - HEMATOLOGICAL/ONCOLOGICAL Hx Human Immunodeficiency Virus (HIV): No - INTEGUMENTARY Hx Dermatological Problems: No - MUSCULOSKELETAL/RHEUMATOLOGICAL Hx Arthritis: Yes - GASTROINTESTINAL Hx Gastrointestinal Disorders: Yes Other/Comment: hep c - GENITOURINARY/GYNECOLOGICAL Hx Sexually Transmitted Disorders: No - PSYCHIATRIC Hx Anxiety: Yes Hx Bipolar Disorder: Yes Hx Depression: Yes Hx Paranoia: Yes Hx Post Traumatic Stress Disorder: Yes Hx Schizophrenia: (per old chart but pt denies) - SURGICAL HISTORY Hx Appendectomy: Yes Hx Tonsillectomy: Yes - ANESTHESIA Hx Anesthesia: Yes Hx Anesthesia Reactions: No Hx Malignant Hyperthermia: No Meds Allergies/Adverse Reactions: Allergies Allergy/AdvReac Type Severity Reaction Status Date / Time Penicillins Allergy convulsions Verified 10/02/17 19:21 Physical Exam - Constitutional Appears: No Acute Distress - Head Exam Head Exam: NORMAL INSPECTION, NORMOCEPHALIC - Eye Exam Eye Exam: EOMI, Normal appearance Pupil Exam: NORMAL ACCOMODATION, PERRL - ENT Exam ENT Exam: Mucous Membranes Moist, Normal Exam, Normal External Ear Exam - Neck Exam Neck exam: Positive for: Full Rom. Negative for: Lymphadenopathy, Tenderness - Respiratory Exam Respiratory Exam: Clear to Auscultation Bilateral. absent: Rales, Rhonchi, Wheezes - Cardiovascular Exam Cardiovascular Exam: REGULAR RHYTHM, RRR, +S1, +S2 - GI/Abdominal Exam GI & Abdominal Exam: Normal Bowel Sounds, Soft. absent: Mass, Organomegaly, Tenderness - Rectal Exam Rectal Exam: Deferred - Extremities Exam Extremities exam: Positive for: full ROM, normal inspection. Negative for: pedal edema - Back Exam Back exam: NORMAL INSPECTION. absent: CVA tenderness (L), CVA tenderness (R) - Neurological Exam Neurological exam: Alert, CN II-XII Intact, Oriented x3, Reflexes Normal - Psychiatric Exam Psychiatric exam: Normal Affect, Normal Mood - Skin Skin Exam: Dry, Intact, Normal Color, Warm Results - Vital Signs Recent Vital Signs: Last Vital Signs Temp 97.2 F L 10/04/17 19:32 Pulse 89 10/04/17 19:32 Resp 16 10/04/17 19:32 BP 144/77 10/04/17 19:32 Pulse Ox 96 10/04/17 22:26 - Labs Result Diagrams: 10/04/17 21:14 10/04/17 21:14 Labs: Laboratory Results - last 24 hr 10/04/17 10/04/17 10/04/17 21:14 21:14 21:14 WBC 8.7 RBC 4.92 Hgb 14.9 D Hct 44.9 MCV 91.3 MCH 30.3 MCHC 33.2 RDW 13.4 Plt Count 255 MPV 8.6 Neut % (Auto) 63.7 Lymph % (Auto) 23.1 [place] % (Auto) 10.5 H Eos % (Auto) 1.6 Baso % (Auto) 1.1 Neut # 5.5 Lymph # 2.0 [place] # 0.9 H Eos # 0.1 Baso # 0.1 PT 11.7 INR 1.1 APTT 30.2 Sodium 143 Potassium 3.2 L Chloride 100 Carbon Dioxide 27 Anion Gap 19 BUN 5 L Creatinine 0.7 L Est GFR ( Amer) > 60 Est GFR (Non-Af Amer) > 60 Random Glucose 96 Calcium 9.1 - Imaging and Cardiology Chest x-ray Status: Image reviewed by me Additional comment: no infiltrate Assessment & Plan - Assessment and Plan (Free Text) Assessment: #. Dysphagia #. Hypokalemia #. Diaphragmatic Hernia #. GERD Plan: 62 years old male with hx of depression, BPH; CVD and HTN comes with report of Pork stuck in his throat while eating making it difficult to swallow. #. Dysphagia - Consult Dr Medrano GI - NPO - IV fluids #. Hypokalemia - KCL in IV Fluids - Follow Electrolytes #. GERD - Protonix #. Bipolar Disorder - Restart medication as soon as Oral diet is started #. DVT Prophylaxis with SCD #. Code Status: Full - Date & Time Date: 10/04/17 Time: 22:36
[2017-10-04] MEDS ORDERED: Succinylcholine 200 mg/10 ml Inj IV ONE (23:31)
[2017-10-04] MEDS ORDERED: Propofol 10 mg/ml Inj (20 ML) ONE ×2 (23:32→23:56)
--- NOTE | 2017-10-04 23:51 | CP.PCM.CON ---
History of Present Illness - History of Present Illness History of Present Illness: 62 yo male admitted for inabilty to swallow. Started after eating sausage. Patient has difficulty chewing due to absent teeth Review of Systems - Constitutional Constitutional: absent: Chills - EENT Eyes: absent: Blurred Vision Ears: absent: Decreased Hearing Nose/Mouth/Throat: absent: Epistaxis - Cardiovascular Cardiovascular: absent: Chest Pain - Respiratory Respiratory: absent: Dyspnea - Genitourinary Genitourinary: absent: Change in Urinary Stream Past Patient History - Infectious Disease Hx of Infectious Diseases: None - Tetanus Immunizations Tetanus Immunization: Unknown - Past Medical History & Family History Past Medical History?: Yes - Past Social History Smoking Status: Never Smoked - CARDIAC Hx Hypercholesterolemia: Yes Hx Hypertension: No - PULMONARY Hx Asthma: No Hx Bronchitis: No Hx Chronic Obstructive Pulmonary Disease (COPD): No Hx Emphysema: No Hx Pneumonia: Yes Hx Pulmonary Embolism: No Hx Sleep Apnea: No - NEUROLOGICAL Hx Seizures: Yes (alcohol withdrawl) - HEENT Hx HEENT Problems: No Other/Comment: wears reading glasses - RENAL Hx Chronic Kidney Disease: No - ENDOCRINE/METABOLIC Hx Endocrine Disorders: No - HEMATOLOGICAL/ONCOLOGICAL Hx Human Immunodeficiency Virus (HIV): No - INTEGUMENTARY Hx Dermatological Problems: No - MUSCULOSKELETAL/RHEUMATOLOGICAL Hx Arthritis: Yes - GASTROINTESTINAL Hx Gastrointestinal Disorders: Yes Other/Comment: hep c - GENITOURINARY/GYNECOLOGICAL Hx Sexually Transmitted Disorders: No - PSYCHIATRIC Hx Anxiety: Yes Hx Bipolar Disorder: Yes Hx Depression: Yes Hx Paranoia: Yes Hx Post Traumatic Stress Disorder: Yes Hx Schizophrenia: (per old chart but pt denies) - SURGICAL HISTORY Hx Appendectomy: Yes Hx Tonsillectomy: Yes - ANESTHESIA Hx Anesthesia: Yes Hx Anesthesia Reactions: No Hx Malignant Hyperthermia: No Meds Allergies/Adverse Reactions: Allergies Allergy/AdvReac Type Severity Reaction Status Date / Time Penicillins Allergy convulsions Verified 10/02/17 19:21 Physical Exam - Head Exam Head Exam: ATRAUMATIC - Eye Exam Eye Exam: EOMI - ENT Exam ENT Exam: Mucous Membranes Moist - Neck Exam Neck exam: Positive for: Normal Inspection - Respiratory Exam Respiratory Exam: Clear to Auscultation Bilateral - Cardiovascular Exam Cardiovascular Exam: REGULAR RHYTHM - GI/Abdominal Exam GI & Abdominal Exam: Normal Bowel Sounds, Soft. absent: Tenderness Results - Vital Signs Recent Vital Signs: Last Vital Signs Temp 97.2 F L 10/04/17 19:32 Pulse 89 10/04/17 19:32 Resp 16 10/04/17 19:32 BP 144/77 10/04/17 19:32 Pulse Ox 96 10/04/17 22:26 - Labs Result Diagrams: 10/04/17 21:14 10/04/17 21:14 Labs: Laboratory Results - last 24 hr 10/04/17 10/04/17 10/04/17 20:35 21:14 21:14 WBC 8.7 RBC 4.92 Hgb 14.9 D Hct 44.9 MCV 91.3 MCH 30.3 MCHC 33.2 RDW 13.4 Plt Count 255 MPV 8.6 Neut % (Auto) 63.7 Lymph % (Auto) 23.1 [place] % (Auto) 10.5 H Eos % (Auto) 1.6 Baso % (Auto) 1.1 Neut # 5.5 Lymph # 2.0 [place] # 0.9 H Eos # 0.1 Baso # 0.1 PT INR APTT Sodium 143 Potassium 3.2 L Chloride 100 Carbon Dioxide 27 Anion Gap 19 BUN 5 L Creatinine 0.7 L Est GFR ( Amer) > 60 Est GFR (Non-Af Amer) > 60 Random Glucose 96 Calcium 9.1 Blood Type O POSITIVE Antibody Screen Negative BBK History Checked Patient has bt 10/04/17 21:14 WBC RBC Hgb Hct MCV MCH MCHC RDW Plt Count MPV Neut % (Auto) Lymph % (Auto) [place] % (Auto) Eos % (Auto) Baso % (Auto) Neut # Lymph # [place] # Eos # Baso # PT 11.7 INR 1.1 APTT 30.2 Sodium Potassium Chloride Carbon Dioxide Anion Gap BUN Creatinine Est GFR ( Amer) Est GFR (Non-Af Amer) Random Glucose Calcium Blood Type Antibody Screen BBK History Checked Assessment & Plan (1) Impacted esophageal foreign body Assessment and Plan: Food impaction due to poor dentition and likely presence of food material. Will do upper endoscopy. Status: Acute
[2017-10-04] MEDS ORDERED: Lactated Ringer's 1,000 ML IV ONE (23:57)
[2017-10-05] MEDS ORDERED: Potassium Chl 40 mEq in D5-1/2 1,000 ML IV SCH (00:45)
--- NOTE | 2017-10-05 08:12 | CARD ---
APPROVED REPORT EKG Measurement Heart [id number] <Conclusion> Normal sinus rhythm Normal ECG
[2017-10-05 08:15] VITALS: BP 157/80; PULSE 61; RESP 18; TEMP 97.7; O2SAT 97
--- NOTE | 2017-10-05 09:43 | CP.PCM.PN ---
Subjective - Date & Time of Evaluation Date of Evaluation: 10/05/17 Time of Evaluation: 09:40 - Subjective Subjective: 62 yo male doing well post clearance of food impaction. Has been having heartburn lately due to vodka. Objective - Vital Signs/Intake and Output Vital Signs (last 24 hours): Temp Pulse Resp BP Pulse Ox 97.7 F 61 18 157/80 H 97 10/05/17 08:14 10/05/17 08:14 10/05/17 08:14 10/05/17 08:14 10/05/17 08:14 Intake and Output: 10/05/17 10/05/17 06:59 18:59 Intake Total 150 Balance 150 - Medications Medications: Current Medications Gabapentin (Neurontin) 100 mg PO TID [facility] Last Admin: 10/05/17 09:39 Dose: 100 mg Potassium Chloride/Dextrose/Sod Cl (Potassium Chl 40 Meq In D5-1/2ns) 1,000 mls @ 100 mls/hr IV .Q10H [facility] Stop: 10/06/17 00:32 Last Admin: 10/05/17 02:15 Dose: 100 mls/hr [place] Carbonate ([place] Carbonate 300mg) 300 mg PO TID [facility] Last Admin: 10/05/17 09:39 Dose: 300 mg Ondansetron HCl (Zofran Inj) 4 mg IVP Q4 PRN PRN Reason: Nausea/Vomiting Pantoprazole Sodium (Protonix Inj) 40 mg IVP DAILY [facility] Last Admin: 10/05/17 09:39 Dose: 40 mg Quetiapine Fumarate (Seroquel) 100 mg PO DAILY [facility] Last Admin: 10/05/17 09:39 Dose: 100 mg Quetiapine Fumarate (Seroquel) 250 mg PO DAILY [facility] - Labs Labs: 10/04/17 21:14 10/04/17 21:14 PT 11.7 Seconds (9.8-13.1) 10/04/17 21:14 INR 1.1 (0.9-1.2) 10/04/17 21:14 APTT 30.2 Seconds (25.6-37.1) 10/04/17 21:14 - Head Exam Head Exam: ATRAUMATIC - Eye Exam Eye Exam: Normal appearance Pupil Exam: PERRL - Respiratory Exam Respiratory Exam: Clear to Ausculation Bilateral, NORMAL BREATHING PATTERN - Cardiovascular Exam Cardiovascular Exam: REGULAR RHYTHM, +S1, +S2 - GI/Abdominal Exam GI & Abdominal Exam: Soft, Normal Bowel Sounds. absent: Tenderness Assessment and Plan (1) Impacted esophageal foreign body Assessment & Plan: Relatively small piece of food impacted in segment of severe esophagitis. Should be discharged on twice daily PPI and avoid alcohol. Status: Acute
--- NOTE | 2017-10-05 11:10 | RAD ---
PROCEDURE: CHEST RADIOGRAPH, 1 VIEW HISTORY: routine COMPARISON: Chest radiograph dated 08/01/2017 FINDINGS: LUNGS: Clear. PLEURA: No pneumothorax or pleural fluid seen. CARDIOVASCULAR: Cardiomediastinal silhouette stably prominent. OSSEOUS STRUCTURES: Unchanged. VISUALIZED UPPER ABDOMEN: Normal. OTHER FINDINGS: None. IMPRESSION: No active disease.
--- NOTE | 2017-10-05 15:02 | CP.PCM.DIS ---
Provider - Provider Date of Admission: 10/04/17 21:42 Attending physician: Anastacio Ellis Primary care physician: None Consults: GI consult Time Spent in preparation of Discharge (in minutes): 15 Hospital Course - Lab Results Lab Results: Most Recent Lab Values WBC 8.7 K/uL (4.8-10.8) 10/04/17 21:14 RBC 4.92 Mil/uL (4.40-5.90) 10/04/17 21:14 Hgb 14.9 g/dL (12.0-18.0) D 10/04/17 21:14 Hct 44.9 % (35.0-51.0) 10/04/17 21:14 MCV 91.3 fl (80.0-94.0) 10/04/17 21:14 MCH 30.3 pg (27.0-31.0) 10/04/17 21:14 MCHC 33.2 g/dL (33.0-37.0) 10/04/17 21:14 RDW 13.4 % (11.5-14.5) 10/04/17 21:14 Plt Count 255 K/uL (130-400) 10/04/17 21:14 MPV 8.6 fl (7.2-11.7) 10/04/17 21:14 Neut % (Auto) 63.7 % (50.0-75.0) 10/04/17 21:14 Lymph % (Auto) 23.1 % (20.0-40.0) 10/04/17 21:14 [place] % (Auto) 10.5 % (0.0-10.0) H 10/04/17 21:14 Eos % (Auto) 1.6 % (0.0-4.0) 10/04/17 21:14 Baso % (Auto) 1.1 % (0.0-2.0) 10/04/17 21:14 Neut # 5.5 K/uL (1.8-7.0) 10/04/17 21:14 Lymph # 2.0 K/uL (1.0-4.3) 10/04/17 21:14 [place] # 0.9 K/uL (0.0-0.8) H 10/04/17 21:14 Eos # 0.1 K/uL (0.0-0.7) 10/04/17 21:14 Baso # 0.1 K/uL (0.0-0.2) 10/04/17 21:14 PT 11.7 Seconds (9.8-13.1) 10/04/17 21:14 INR 1.1 (0.9-1.2) 10/04/17 21:14 APTT 30.2 Seconds (25.6-37.1) 10/04/17 21:14 Sodium 143 mmol/l (132-148) 10/04/17 21:14 Potassium 3.2 MMOL/L (3.6-5.0) L 10/04/17 21:14 Chloride 100 mmol/L (98-107) 10/04/17 21:14 Carbon Dioxide 27 mmol/L (22-30) 10/04/17 21:14 Anion Gap 19 (10-20) 10/04/17 21:14 BUN 5 mg/dl (9-20) L 10/04/17 21:14 Creatinine 0.7 mg/dl (0.8-1.5) L 10/04/17 21:14 Est GFR ( Amer) > 60 10/04/17 21:14 Est GFR (Non-Af Amer) > 60 10/04/17 21:14 Random Glucose 96 mg/dL (75-110) 10/04/17 21:14 Calcium 9.1 mg/dL (8.4-10.2) 10/04/17 21:14 Blood Type O POSITIVE 10/04/17 20:35 Antibody Screen Negative 10/04/17 20:35 BBK History Checked Patient has bt 10/04/17 20:35 - Hospital Course Hospital Course: 62 years old male with hx of depression, bipolar disorder presented to ER complaining of Pork stuck in his throat while eating making it difficult to swallow. GI was consulted and patient taken for emergent endoscopy with pushing of food bolus gently to stomach food bolus. Lower portion of esophagus showed some erosions but no bleeding. He was kept overnight for observation , started on IV fluids and PPI. Tolerated diet. counselled patient to limit ETOH use. Started on PPI for discharge. Patient cleared by GI. Will d/c patient home Follow up with [facility] 1.Dysphagia secondary to food stuck in lower portion of esophagus GI consulted s/p EGD - that showed esophagitis and erosions to duodenal bulb, no active bleeding. Food pushed to stomach Started PPI tolerated PO intake d/c home counselled on ETOH use 2. Hypokalemia replaced 3. GERD Protonix 4. Bipolar Disorder Restarted home medications Discharge Exam - Head Exam Head Exam: ATRAUMATIC - Eye Exam Eye Exam: Normal appearance, PERRL Pupil Exam: NORMAL ACCOMODATION - ENT Exam ENT Exam: Mucous Membranes Moist, Normal Exam - Neck Exam Neck exam: Full Rom, Normal Inspection - Respiratory Exam Respiratory Exam: Clear to PA & Lateral, NORMAL BREATHING PATTERN. absent: Rhonchi, Wheezes, Respiratory Distress - Cardiovascular Exam Cardiovascular Exam: REGULAR RHYTHM, RRR, +S1, +S2. absent: JVD - GI/Abdominal Exam GI & Abdominal Exam: Normal Bowel Sounds, Soft. absent: Distended, Guarding, Rebound, Tenderness - Rectal Exam Rectal Exam: Deferred - Extremities Exam Extremities exam: normal capillary refill, normal inspection, pedal pulses present - Back Exam Back exam: NORMAL INSPECTION - Neurological Exam Neurological exam: Alert, CN II-XII Intact, Oriented x3, Reflexes Normal - Psychiatric Exam Psychiatric exam: Normal Affect, Normal Mood - Skin Skin Exam: Dry, Intact, Normal Color, Warm Discharge Plan - Discharge Medications Prescriptions: Pantoprazole Sodium [Protonix] 40 mg PO BID #60 ect - Follow Up Plan Condition: STABLE Disposition: HOME/ ROUTINE Patient education suggested?: Yes Instructions: Esophageal Foreign Body (GEN), Upper Endoscopy (DC) Referrals: [facility] [Outside]
== END 2017-10-05 13:40 | disposition home or self-care (01) ==
LOC: H.ER 19:25 → H.ERHOLD 21:42 → INTOOBSV 21:42 → H.MEDSURG1 10-05 01:45
PROVIDERS: ADMIT Internal Medicine; ATTEND Internal Medicine
DX: T18.128A Food in esophagus causing other injury, initial encounter (principal); Z88.0 Allergy status to penicillin; E78.00 Pure hypercholesterolemia, unspecified; E78.5 Hyperlipidemia, unspecified; I10 Essential (primary) hypertension; K44.9 Diaphragmatic hernia without obstruction or gangrene; Z86.73 Personal history of transient ischemic attack (TIA), and cerebral infarction without residual deficits; N40.0 Benign prostatic hyperplasia without lower urinary tract symptoms; K21.0 Gastro-esophageal reflux disease with esophagitis; R13.10 Dysphagia, unspecified; F17.200 Nicotine dependence, unspecified, uncomplicated; K22.10 Ulcer of esophagus without bleeding; K26.9 Duodenal ulcer, unspecified as acute or chronic, without hemorrhage or perforation; E87.6 Hypokalemia; F31.9 Bipolar disorder, unspecified; F43.10 Post-traumatic stress disorder, unspecified
CPT/HCPCS: 43247; 71045; 80048; 85025; 85610; 85730; 86850; 86900; 93005; 99282; C9113; G0378; J0330; J1610; J2704; J7040; J7120

== ENCOUNTER 2017-10-05 23:39 | Inpatient (IN) | payer MEDICARE, OTHER ==
[2017-10-05 23:40] VITALS: BMI 24.7
[2017-10-05 23:45] VITALS: O2SAT 97
--- NOTE | 2017-10-06 00:14 | ED PDOC ---
HPI: Psych/Substance Abuse Time Seen by Provider: 10/06/17 00:00 Chief Complaint (Nursing): Psychiatric Evaluation Chief Complaint (Provider): crisis eval History Per: Patient, EMS Additional Complaint(s): 62 y/o male brought in by EMS for crisis eval. Patient admits to drinking "a little" tonight, states he called 911 because he has been hearing voices that are just laughing at him and it is starting to make him angry. Patient states it makes him wanted to take a razor and cut his neck to end his life. Patient states he has been noncompliant with psych meds because he does not take them when he drinks alcohol. Denies homicidal ideations, acute medical complaints. Past Medical History Reviewed: Historical Data, Nursing Documentation, Vital Signs Vital Signs: Last Vital Signs Temp 98.0 F 10/05/17 23:42 Pulse 97 H 10/05/17 23:42 Resp 16 10/05/17 23:42 BP 136/106 H 10/05/17 23:42 Pulse Ox 97 10/05/17 23:42 - Medical History PMH: Anxiety, Arthritis, Benign Prostatic Hyperplasia, Bipolar Disorder, CVA, Depression, Hypercholesterolemia, Paranoia, Pneumonia, Post Traumatic Stress Disorder, Seizures (alcohol withdrawl) Denies: Asthma, Bronchitis, COPD, Diabetes, Emphysema, Hepatitis, HIV, HTN, Pulmonary Embolism, Chronic Kidney Disease, Sexually Transmitted Disease, Sleep Apnea Comment Only: Schizophrenia (per old chart but pt denies) - Surgical History Surgical History: Appendectomy, Endoscopy, Tonsillectomy - Family History Family History: States: Unknown Family Hx - Immunization History Hx Tetanus Toxoid Vaccination: Yes Hx Influenza Vaccination: Yes Hx Pneumococcal Vaccination: No - Home Medications Home Medications: Ambulatory Orders Medication Instructions Recorded Gabapentin [Neurontin] 100 mg PO TID 10/04/17 [place] Carbonate [[place] 300 mg PO TID 10/04/17 Carbonate 300MG] QUEtiapine [SEROquel] 100 mg PO DAILY 10/04/17 QUEtiapine [SEROquel] 250 mg PO DAILY 10/04/17 Pantoprazole Sodium [Protonix] 40 mg PO BID #60 ect 10/05/17 - Allergies Allergies/Adverse Reactions: Allergies Allergy/AdvReac Type Severity Reaction Status Date / Time Penicillins Allergy convulsions Verified 10/02/17 19:21 Review of Systems ROS Statement: Except As Marked, All Systems Reviewed And Found Negative Psych: Positive for: Depression, Psychosis, Suicidal ideation Physical Exam - Reviewed Nursing Documentation Reviewed: Yes Vital Signs Reviewed: Yes - Physical Exam Appears: Positive for: Well, Non-toxic, Uncomfortable (agitated) Head Exam: Positive for: ATRAUMATIC, NORMAL INSPECTION, NORMOCEPHALIC Skin: Positive for: Normal Color Eye Exam: Positive for: Normal appearance ENT: Positive for: Normal ENT Inspection Cardiovascular/Chest: Positive for: Regular Rate, Rhythm Respiratory: Positive for: Normal Breath Sounds Gastrointestinal/Abdominal: Positive for: Normal Exam Back: Positive for: Normal Inspection Extremity: Positive for: Normal ROM Neurologic/Psych: Positive for: Alert, Oriented - Laboratory Results Result Diagrams: 10/06/17 00:25 10/06/17 00:25 - ECG O2 Sat by Pulse Oximetry: 97 Disposition - Clinical Impression Clinical Impression: Hearing voices - Disposition Disposition: Transfer of Care Disposition Time: 06:07 Condition: STABLE Forms: [employer] (Chinese) Patient Signed Over To: Pam Hummel Handoff Comments: pending crisis eval
[2017-10-06 00:51] LABS: BASO # 0.1 K/uL (0.0-0.2); EOS # 0.1 K/uL (0.0-0.7); EOS % 1.6 % (0.0-4.0); HEMOGLOBIN 13.7 g/dL (12.0-18.0); LYMPH # 2.8 K/uL (1.0-4.3); LYMPH % 31.1 % (20.0-40.0); MEAN CELL VOLUME 92.1 fl (80.0-94.0); MEAN CORPUSCULAR HEMOGLOBIN 29.9 pg (27.0-31.0); MEAN CORPUSCULAR HGB CONC 32.5 g/dL (33.0-37.0); MEAN PLATELET VOLUME 8.3 fl (7.2-11.7); MONO # 0.9 K/uL (0.0-0.8); MONO % 10.1 % (0.0-10.0); NEUT # 5.1 K/uL (1.8-7.0); NEUT % 56.2 % (50.0-75.0); NRBC % 0.2 % (0.0-0.0); RBC 4.56 Mil/uL (4.40-5.90); RED CELL DISTRIBUTION WIDTH 13.5 % (11.5-14.5); WHITE BLOOD COUNT 9.1 K/uL (4.8-10.8)
[2017-10-06 01:00] LABS: ALB/GLOB RATIO 0.9 (1.0-2.1); ALT/SGPT 152 U/L (21-72); AST/SGOT 102 U/L (17-59); BLOOD UREA NITROGEN 9 mg/dl (9-20); CALCIUM 8.6 mg/dL (8.4-10.2); GFR AFRICAN-AMERICAN > 60; GFR NON-AFRICAN AMERICAN > 60
[2017-10-06 01:24] LABS: URINE BILIRUBIN NEGATIVE (NEGATIVE); URINE BLOOD NEGATIVE (NEGATIVE); URINE CLARITY SLIGHTY-CLOUDY (Clear); URINE COLOR YELLOW (YELLOW); URINE GLUCOSE (UA) NEG (Normal); URINE HYALINE CAST 0-2 /hpf (0-2); URINE LEUKOCYTE ESTERASE NEG Leu/uL (Negative); URINE NITRATE NEGATIVE (NEGATIVE); URINE PROTEIN 30 mg/dL (NEGATIVE); URINE UROBILINOGEN 0.2-1.0 mg/dL (0.2-1.0)
[2017-10-06 01:40] LABS: BARBITURATES, UR NEGATIVE (NEGATIVE); BENZODIAZEPINES, UR NEGATIVE (NEGATIVE); PHENCYCLIDINE, UR NEGATIVE (NEGATIVE)
[2017-10-06 01:43] LABS: OPIATES, UR POSITIVE (NEGATIVE)
[2017-10-06] MEDS ORDERED: Potassium Chloride 20 mEq ER Tab PO ONE (06:09)
--- NOTE | 2017-10-06 06:15 | ED PDOC ---
- Laboratory Results Result Diagrams: 10/06/17 00:25 10/06/17 00:25 - ECG O2 Sat by Pulse Oximetry: 97 Medical Decision Making Medical Decision Makin Patient signed out to me from ANA Rooney pending crisis evaluation. 0615 As per crisis, patient agrees to admission for bipolar depressed type as per Dr. Sanz. * Librium 25mg PO * Potassium Chloride 20meq PO 0645 EKG: NSR at 68 cxr on my view appears normal pt cleared for psych Scribe Attestation: Documented by Mariah Gutierrez acting as a scribe for Pam Hummel MD. Scribe Attestation: All medical record entries made by the Scribe were at my direction and personally dictated by me. I have reviewed the chart and agree that the record accurately reflects my personal performance of the history, physical exam, medical decision making, and the department course for this patient. I have also personally directed, reviewed, and agree with the discharge instructions and disposition. Disposition - Clinical Impression Clinical Impression: Hearing voices - POA Present On Arrival: None - Disposition Disposition: Admitted as In-Patient Disposition Time: 07:00 Condition: STABLE
--- NOTE | 2017-10-06 08:32 | RAD ---
HISTORY: psych COMPARISON: September 2017 FINDINGS: LUNGS: No active pulmonary disease. PLEURA: No significant pleural effusion identified, no pneumothorax apparent. CARDIOVASCULAR: Minimal cardiomegaly - minimally ectatic prominent thoracic aorta -similar OSSEOUS STRUCTURES: No significant abnormalities. VISUALIZED UPPER ABDOMEN: Normal. OTHER FINDINGS: None. IMPRESSION: No active disease. No interval pathology appreciated
[2017-10-06] MEDS ORDERED: DiphenhydrAMINE 50 mg/ml Inj IM PRN (10:11)
[2017-10-06] MEDS ORDERED: Magnesium Hydroxide Susp 30 ml UD PO PRN (10:11)
[2017-10-06] MEDS ORDERED: Alum-Mag Hydrox-Simethicone Susp (30 mL) PO PRN (10:11)
--- NOTE | 2017-10-06 10:51 | CARD ---
APPROVED REPORT EKG Measurement Heart [id number] <Conclusion> Normal sinus rhythm Normal ECG
--- NOTE | 2017-10-06 12:26 | PCM.BM ---
<Laine Lopez - Last Filed: 10/06/17 12:24> Treatment Plan Problems - Problems identified on initial assessmt Hopelessness/Helplessness Date Initiated: 10/06/17 Time Initiated: 12:25 Assessment reference: NA Treatment assets and liabiliti Patient Assests: adapts well, cooperative, self-reliant, ADL independent, negotiates basic needs, good past tx response, cognitively intact, good interpersonal skills Patient Liabilities: poor support system, medical problems - Milieu Protocol Maintain good personal hygiene: daily Encourage regular showers, every shift Remind patient to perform daily oral care, every shift Assist patient to perform ADL's Maintain personal safety: every shift Educate patient to report safety concerns to staff, every shift Monitor environment for contraband/sharps Medication safety: Monitor for expected outcome, potential side effects: every shift, Assess barriers to learning: every shift, Assess readiness for medication education: every shift <Raj Mccormick - Last Filed: 10/08/17 15:23> Family Contact Family involvement: Famliy/SO not involved Family contact: Patient declines to allow family contact at present Family contact name: Pt denied. - Goals for Treatment Patient goals for treatment: Pt would like to go to a senior care sober living program like [facility]. Discharge/Continuing Care - Education Needs Education Needs: Patient Coping Skills, Patient Community resources, Patient Aftercare Safety Plan - Discharge Discharge Criteria: Free of Suicidal thoughts, Free of paranoid thoughts, Free of agitation, Normal sleep pattern, No longer exhibiting s/s of withdrawal, Reduction of target symptoms Discharge to:: Skilled Nursing - Treatment Team Participation Discussed with Family/SO: No Was Patient/Family/SO present at Treatment Team Meeting: Yes <El Mares - Last Filed: 10/11/17 09:55> - Diagnosis (1) Alcohol abuse Status: Acute Interventions: 10/11/17 09:54 motivational therapy
--- NOTE | 2017-10-06 14:30 | PCM.PSYCH ---
Initial Psychiatric Evaluation - Initial Psychiatric Evaluation Type of Admission: Voluntary Legal Status: Capacity Chief Complaint (in patient's own words): I was depressed and I started drinking again Patient's Reaction to Hospitalization: pt requested help History of Present Illness and Precipitating Events: pt with previous diagnosis of bipolar disorder and alcohol use disorder, recently non compliant with medication became increasingly depressed, relapsed on alcohol using a pint of vodka daily, pt on day of evaluation started experiencing auditory hallucinations and having suicidal ideations, came to the ER seeking help Current Medications: Active Medications Generic Name Dose Route Start Last Admin Trade Name Freq PRN Reason Stop Dose Admin Al Hydrox/Mg Hydrox/Simethicone 30 ml 10/06/17 10:11 Maalox Plus 30 Ml PO Q4 PRN Dyspepsia Diphenhydramine HCl 50 mg 10/06/17 10:11 Benadryl IM Q6 PRN Extrapyramidal S/S Unable PO Diphenhydramine HCl 50 mg 10/06/17 10:11 Benadryl PO Q6 PRN Extrapyramidal Symptoms Haloperidol 5 mg 10/06/17 10:11 Haldol PO Q4 PRN Agitation Haloperidol Lactate 5 mg 10/06/17 10:11 Haldol IM Q4 PRN Agitation, Unable to Take PO Lorazepam 2 mg 10/06/17 10:11 Ativan IM Q4 PRN Anxiety/Agitation,Unable PO Lorazepam 2 mg 10/06/17 10:11 Ativan PO Q4 PRN Anxiety/Agitation Lorazepam 2 mg 10/06/17 10:17 10/06/17 11:50 Ativan PO 2 mg Q6 REAL Administration Magnesium Hydroxide 30 ml 10/06/17 10:11 Milk Of Magnesia PO HS PRN Constipation Quetiapine Fumarate 50 mg 10/06/17 17:00 Seroquel PO BID REAL Quetiapine Fumarate 100 mg 10/06/17 22:00 Seroquel PO HS REAL Past Psychiatric History - Past Psychiatric History Explanation of prior treatment: multiple inpatient hospitalizations, hx of noncompliance History of ETOH/Drug Use: hx of alcohol use Pertinent Medical Hx (Current Medical&Sleep Prob, Allergies): Allergies Allergy/AdvReac Type Severity Reaction Status Date / Time Penicillins Allergy convulsions Verified 10/02/17 19:21 Gabapentin [Neurontin] 100 mg PO TID 10/04/17 [place] Carbonate [[place] Carbonate 300MG] 300 mg PO TID 10/04/17 QUEtiapine [SEROquel] 100 mg PO DAILY 10/04/17 QUEtiapine [SEROquel] 250 mg PO DAILY 10/04/17 Pantoprazole Sodium [Protonix] 40 mg PO BID #60 ect 10/05/17 Mental Status Examination - Personal Presentation Personal Presentation: Looks older than stated age Additional comments: unkempt - Affect Affect: Constricted, Depressed - Motor Activity Motor Activity: Psychomotor Retardation - Reliability in Providing Information Reliability in Providing Information: Poor, due to altered mood - Speech Speech: Tangential - Mood Mood: Depressed, Anxious - Formal Thought Process Formal Thought Process: Hallucinations, Circumstantial Additional comments: reported non command auditory hallucinations - Obsessions/Compulsions Obsessions: No Compulsions: No - Cognitive Functions Orientation: Person, Place Sensorium: Alert Abstract Thinking: [place] Judgement: Imparied, as evidence by: Poor judgement, Imparied, as evidence by: Lack of insight into illness - Risk Risk: Withdrawal, Diminished functioning - Strength & Assets Inventory Strength & Assets Inventory: Life experience - Limitations Additional comments: poor compliance DSM 5 DX - DSM 5 DSM 5 Diagnosis: alcohol induced mood disorder with depressive features bipolar disorder - Recommended/Plan of Treatment Treatment Recommendations and Plan of Treatment: ativan protocol for symptoms and signs of alcohol withdrawal seroquel 200mg for depression motivational and group therapy
--- NOTE | 2017-10-07 12:22 | PCM.PYCHPN ---
Psychiatric Progress Note - Psychiatric Progress Note Patient seen today, length of contact: pt evaluated discussed with team chart reviewed Patient Chief Complaint: I still feel weak and depressed Problems Identified/Issues Discussed: pt seen in bed , speech soft and underproductive, presenting with depressed mood and affect reported low energy reported passive suicidal ideations with no plan on the unit discussed with pt importance of attending groups no reported psychotic symptoms and no reported side effects of seroquel Medical Problems: multiple inpatient hospitalizations, hx of noncompliance DSM 5 Symptoms Update: alcohol induced mood disorder with depressive features depression Medication Change: Yes (downtaper ativan) Medical Record Reviewed: Yes Mental Status Examination - Cognitive Function Orientation: Person, Place Attention: Poor Concentration: Poor Association: WNL Fund of Knowledge: Poor Decription of patient's judgement and insights: impaired insight and poor judgment - Mood Mood: Depressed, Anxious - Affect Affect: Constricted, Depressed - Speech Speech: Soft - Formal Thought Process Formal Thought Process: Circumstantial Psychotic Thoughts and Behaviors: pt denied any current perceptual disturbances , non elicited - Suicidal Ideation Suicidal Ideation: No - Homicidal Ideation Homicidal Ideation: No Goal/Treatment Plan - Goal/Treatment Plan Need for Continued Stay: Severe depression anxiety, Discharge may exacerbated symptoms Progress Toward Problem(s) and Goals/Treatment Plan: down taper ativan gradually and monitor pt for symptoms and signs of alcohol withdrawal seroquel 200mg for depression motivational and group therapy Estimated Date of D/C: 10/12/17
--- NOTE | 2017-10-08 14:01 | PCM.PYCHPN ---
Psychiatric Progress Note - Psychiatric Progress Note Patient seen today, length of contact: pt evaluated discussed with team chart reviewed Patient Chief Complaint: my mood is a little better but I still hear voices Problems Identified/Issues Discussed: pt seen in bed , continues to be isolative, anhedonic, discussed with pt importance of attending groups pt reported continues to experience non command auditory hallucinations, denied any current suicidal or homicidal ideations Medical Problems: multiple inpatient hospitalizations, hx of noncompliance DSM 5 Symptoms Update: schizoaffective disorder alcohol use disorder Medication Change: Yes (down taper ativan increase seroquel) Medical Record Reviewed: Yes Mental Status Examination - Cognitive Function Orientation: Person, Place Attention: Poor Concentration: Poor Association: WNL Fund of Knowledge: Poor Decription of patient's judgement and insights: impaired insight and poor judgment - Mood Mood: Depressed, Anxious - Affect Affect: Constricted, Depressed - Speech Speech: Soft - Formal Thought Process Formal Thought Process: Circumstantial Psychotic Thoughts and Behaviors: pt reported non command auditory hallucinations - Suicidal Ideation Suicidal Ideation: No - Homicidal Ideation Homicidal Ideation: No Goal/Treatment Plan - Goal/Treatment Plan Need for Continued Stay: Severe depression anxiety, Discharge may exacerbated symptoms Progress Toward Problem(s) and Goals/Treatment Plan: discontinue ativan, increase seroquel to 300mg motivational and group therapy Estimated Date of D/C: 10/12/17
--- NOTE | 2017-10-09 10:40 | PCM.PYCHPN ---
Psychiatric Progress Note - Psychiatric Progress Note Patient seen today, length of contact: pt evaluated discussed with team chart reviewed Patient Chief Complaint: I am a little better today Problems Identified/Issues Discussed: pt seen in bed , reported feeling less depressed, reported clearing off of the auditory hallucinations, improved sleep and appetite , denied any current suicidal or homicidal ideations Medical Problems: multiple inpatient hospitalizations, hx of noncompliance DSM 5 Symptoms Update: alcohol induced mood disorder with depressive features alcohol use disorder bipolar disorder Medication Change: No Medical Record Reviewed: Yes Mental Status Examination - Cognitive Function Orientation: Person, Place Attention: WNL Concentration: WNL Association: WNL Fund of Knowledge: Poor Decription of patient's judgement and insights: impaired insight and poor judgment - Mood Mood: Depressed, Anxious - Affect Affect: Constricted, Depressed - Speech Speech: Soft - Formal Thought Process Formal Thought Process: Circumstantial Psychotic Thoughts and Behaviors: pt reported clearing off of the auditory hallucinations - Suicidal Ideation Suicidal Ideation: No - Homicidal Ideation Homicidal Ideation: No Goal/Treatment Plan - Goal/Treatment Plan Need for Continued Stay: Severe depression anxiety, Discharge may exacerbated symptoms Progress Toward Problem(s) and Goals/Treatment Plan: continue with seroquel to 300mg motivational and group therapy Estimated Date of D/C: 10/12/17
--- NOTE | 2017-10-10 12:36 | PCM.PYCHPN ---
Psychiatric Progress Note - Psychiatric Progress Note Patient seen today, length of contact: pt evaluated discussed with team chart reviewed Patient Chief Complaint: I am better today Problems Identified/Issues Discussed: pt seen in bed , reported feeling less depressed, brighter affect, denied current perceptual disturbances, improved sleep and appetite , denied any current suicidal or homicidal ideations Medical Problems: multiple inpatient hospitalizations, hx of noncompliance DSM 5 Symptoms Update: alcohol induced mood disorder with depressive features alcohol use disorder Medication Change: No Medical Record Reviewed: Yes Mental Status Examination - Cognitive Function Orientation: Person, Place Attention: WNL Concentration: WNL Association: WNL Fund of Knowledge: Poor Decription of patient's judgement and insights: impaired insight and poor judgment - Mood Mood: Depressed, Anxious - Affect Affect: Constricted, Depressed - Speech Speech: Soft - Formal Thought Process Formal Thought Process: Circumstantial Psychotic Thoughts and Behaviors: pt reported clearing off of the auditory hallucinations - Suicidal Ideation Suicidal Ideation: No - Homicidal Ideation Homicidal Ideation: No Goal/Treatment Plan - Goal/Treatment Plan Need for Continued Stay: Severe depression anxiety, Discharge may exacerbated symptoms Progress Toward Problem(s) and Goals/Treatment Plan: continue with seroquel to 300mg motivational and group therapy Estimated Date of D/C: 10/12/17
[2017-10-10 19:23] LABS: SQUAMOUS EPITHIAL < 1 /hpf (0-5); URINE BILIRUBIN NEGATIVE (NEGATIVE); URINE BLOOD NEGATIVE (NEGATIVE); URINE CLARITY CLEAR (Clear); URINE COLOR YELLOW (YELLOW); URINE GLUCOSE (UA) NEG (Normal); URINE LEUKOCYTE ESTERASE NEG Leu/uL (Negative); URINE NITRATE NEGATIVE (NEGATIVE); URINE PROTEIN NEGATIVE (NEGATIVE); URINE UROBILINOGEN 0.2-1.0 mg/dL (0.2-1.0)
--- NOTE | 2017-10-11 11:11 | PCM.PYCHPN ---
Psychiatric Progress Note - Psychiatric Progress Note Patient seen today, length of contact: pt evaluated discussed with team chart reviewed Patient Chief Complaint: my mood is better but I get anxious at times Problems Identified/Issues Discussed: pt seen in bed day room, less isolative and interacting with other patients reported feeling less depressed, brighter affect, denied current perceptual disturbances, improved sleep and appetite denied any current suicidal or homicidal ideations Medical Problems: multiple inpatient hospitalizations, hx of noncompliance DSM 5 Symptoms Update: alcohol induced mood disorder hx of bipolar disorder Medication Change: Yes (start neurontin) Medical Record Reviewed: Yes Mental Status Examination - Cognitive Function Orientation: Person, Place Attention: WNL Concentration: WNL Association: WNL Fund of Knowledge: Poor Decription of patient's judgement and insights: impaired insight and poor judgment - Mood Mood: Anxious - Affect Affect: Constricted - Speech Speech: Appropriate - Formal Thought Process Formal Thought Process: Circumstantial Psychotic Thoughts and Behaviors: pt reported clearing off of the auditory hallucinations - Suicidal Ideation Suicidal Ideation: No - Homicidal Ideation Homicidal Ideation: No Goal/Treatment Plan - Goal/Treatment Plan Need for Continued Stay: Severe depression anxiety, Discharge may exacerbated symptoms Progress Toward Problem(s) and Goals/Treatment Plan: continue with seroquel 300mg start neurontin 100mg tid motivational and group therapy Estimated Date of D/C: 10/12/17
[2017-10-11 16:30] VITALS: RESP 18
--- NOTE | 2017-10-12 11:03 | PCM.PYCHPN ---
Psychiatric Progress Note - Psychiatric Progress Note Patient seen today, length of contact: pt evaluated discussed with team chart reviewed Patient Chief Complaint: I plan to join the [employer] Problems Identified/Issues Discussed: pt seen in day room, manishsekoueliezer groomed , reported feeling less depressed and with brighter affect ess isolative and interacting with other patients discussed with patient joining [facility] outpatient program on discharge, pt agreed , brighter affect, denied current perceptual disturbances, improved sleep and appetite denied any current suicidal or homicidal ideations Medical Problems: multiple inpatient hospitalizations, hx of noncompliance DSM 5 Symptoms Update: alcohol induced mood disrder with depressive fetures alcohol use disorder hx of bipolar disorder Medication Change: No Medical Record Reviewed: Yes Mental Status Examination - Cognitive Function Orientation: Person, Place Attention: WNL Concentration: WNL Association: WNL Fund of Knowledge: Poor Decription of patient's judgement and insights: impaired insight and poor judgment - Mood Mood: Anxious - Affect Affect: Constricted - Speech Speech: Appropriate - Formal Thought Process Formal Thought Process: Circumstantial Psychotic Thoughts and Behaviors: pt reported clearing off of the auditory hallucinations - Suicidal Ideation Suicidal Ideation: No - Homicidal Ideation Homicidal Ideation: No Goal/Treatment Plan - Goal/Treatment Plan Need for Continued Stay: Severe depression anxiety, Discharge may exacerbated symptoms Progress Toward Problem(s) and Goals/Treatment Plan: continue with seroquel 300mg neurontin 100mg tid motivational and group therapy referral to outpatient rehab on discharge Estimated Date of D/C: 10/12/17
--- NOTE | 2017-10-13 12:37 | PCM.PYCHPN ---
Psychiatric Progress Note - Psychiatric Progress Note Patient seen today, length of contact: pt evaluated discussed with team chart reviewed Patient Chief Complaint: I am starting to feel better, I plan to go to [place] Problems Identified/Issues Discussed: pt seen in his room, better groomed, reported better mood brighter affect pt feeling stable on current medications, no reported side effects pt attending groups, and reported motivated to join a rehab program in [place] denied any current suicidal r homicidal ideations denied perceptual disturbances pt will be discharged upon social insurance analyst arranging for [facility] outpatient follow up Medical Problems: multiple inpatient hospitalizations, hx of noncompliance DSM 5 Symptoms Update: alcohol induced mood disorder with depressive features alcohol use disorder hx of bipolar disorder Medication Change: No Medical Record Reviewed: Yes Mental Status Examination - Cognitive Function Orientation: Person, Place Attention: WNL Concentration: WNL Association: WNL Fund of Knowledge: Poor Decription of patient's judgement and insights: impaired insight and poor judgment - Mood Mood: Anxious - Affect Affect: Constricted - Speech Speech: Appropriate - Formal Thought Process Formal Thought Process: Circumstantial Psychotic Thoughts and Behaviors: pt reported clearing off of the auditory hallucinations - Suicidal Ideation Suicidal Ideation: No - Homicidal Ideation Homicidal Ideation: No Goal/Treatment Plan - Goal/Treatment Plan Need for Continued Stay: Severe depression anxiety, Discharge may exacerbated symptoms Progress Toward Problem(s) and Goals/Treatment Plan: continue with seroquel 300mg neurontin 100mg tid motivational and group therapy referral to outpatient rehab on discharge Estimated Date of D/C: 10/12/17
--- NOTE | 2017-10-14 08:56 | PCM.PYCHDC ---
Mental Status Examination - Mental Status Examination Orientation: Person, Place, Situation Memory: Intact Mood: Neutral Affect: Broad Speech: Appropriate Attention: WNL Concentration: WNL Association: WNL Fund of Knowledge: WNL Formal Thought Process: Circumstantial Description of patient's judgement and insight: partial insight and poor judgment Psychotic Thoughts and Behaviors: pt denied any current perceptual disturbances Suicidal Ideation: No Current Homicidal Ideation?: No Discharge Summary - Discharge Note Reason for Hospitalization: pt with previous diagnosis of bipolar disorder and alcohol use disorder, recently non compliant with medication became increasingly depressed, relapsed on alcohol using a pint of vodka daily, pt on day of evaluation started experiencing auditory hallucinations and having suicidal ideations, came to the ER seeking help Consultations:: List each consultation separately and include: 1. Reason for request. 2. Findings. 3. Follow-up Summary of Hospital Course include:: 1. Description of specific treatment plan utilized for patients during their course of treatmen. 2. Summarize the time- course for resolution of acute symptoms and/or regressed behaviors. 3. Describe issues identified and worked on during hospitalization. 4. Describe medication utilized. 5. Describe medical problems identified and treated. 6. Reassessment of suicide risk Summary of Hospital Course: pt on admission was started on ativan protocol for alcohol withdrawal,seroquel as mood stabilizer and neurontin for anxiety group , motivational and supportive therapy on discharge mental status was stable, pt denied suicidal or homicidal ideations denied perceptual disturbances refferal to [facility] by psychotherapist social worker for reahb - Diagnosis (1) Alcohol abuse Current Visit: No Status: Acute - Final Diagnosis (DSM 5) Condition upon Discharge: STABLE DSM 5: alcohol induced mood disorder with depressive features alcohol use disorder hx of bipolar disorder Disposition: HOME/ ROUTINE Follow-up Treatment Plan: continue with seroquel 300mg neurontin 100mg tid motivational and group therapy referral to outpatient rehab on discharge Prescriptions/Medication Reconciliation: Gabapentin [Neurontin] 100 mg PO TID 30 Days #90 cap QUEtiapine [SEROquel] 200 mg PO HS 30 Days #30 tab QUEtiapine [SEROquel] 50 mg PO BID 30 Days #60 tab - Antipsychotic Medications Pt discharged on 2 or more routine antipsychotic medications: No
[2017-10-14 09:06] VITALS: BP 136/69; PULSE 88; TEMP 97.9
== END 2017-10-14 12:13 | disposition home or self-care (01) | DRG 895 ==
LOC: H.ER 23:39 → H.ERHOLD 10-06 06:12 → H.PSYCH 10-06 08:03
PROVIDERS: ADMIT Psychiatry & Neurology Psychiatry; ATTEND Psychiatry & Neurology Psychiatry
PROC: HZ57ZZZ Individual Psychotherapy for Substance Abuse Treatment, Motivational Enhancement (ICD-10-PCS; principal; 2017-10-06)
PROC: HZ59ZZZ Individual Psychotherapy for Substance Abuse Treatment, Supportive (ICD-10-PCS; 2017-10-06)
PROC: GZHZZZZ Group Psychotherapy (ICD-10-PCS; 2017-10-06)
DX: F10.94 Alcohol use, unspecified with alcohol-induced mood disorder (principal); R45.851 Suicidal ideations; Z88.0 Allergy status to penicillin; Y90.7 Blood alcohol level of 200-239 mg/100 ml; Z91.14 Patient's other noncompliance with medication regimen; F31.9 Bipolar disorder, unspecified; E78.00 Pure hypercholesterolemia, unspecified; N40.0 Benign prostatic hyperplasia without lower urinary tract symptoms; Z86.73 Personal history of transient ischemic attack (TIA), and cerebral infarction without residual deficits; F41.9 Anxiety disorder, unspecified

== ENCOUNTER 2018-01-03 16:52 | Emergency (ER) | payer MEDICARE ==
[2018-01-03 16:52] VITALS: BMI 24.7
[2018-01-03 16:58] VITALS: RESP 18; O2SAT 99
--- NOTE | 2018-01-04 01:54 | ED PDOC ---
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 Patient reports hearing voices and admits to drinking alcohol tonight. Also complains of anxiety. Denies HI or SI. PMD: none provided Past Medical History Reviewed: Historical Data, Nursing Documentation, Vital Signs Vital Signs: Last Vital Signs Temp 98.6 F 01/03/18 16:56 Pulse 100 H 01/03/18 16:56 Resp 18 01/03/18 16:56 BP Pulse Ox 99 01/03/18 16:56 - Medical History PMH: Anxiety, Arthritis, Benign Prostatic Hyperplasia, Bipolar Disorder, CVA, Depression, Hypercholesterolemia, Paranoia, Pneumonia, Post Traumatic Stress Disorder Denies: Asthma, Bronchitis, COPD, Diabetes, Emphysema, Hepatitis, HIV, HTN, Pulmonary Embolism, Chronic Kidney Disease, Seizures, Sexually Transmitted Disease, Sleep Apnea Comment Only: Schizophrenia (per old chart but pt denies) - Surgical History Surgical History: Appendectomy, Endoscopy, Tonsillectomy - Family History Family History: States: Unknown Family Hx - Social History Current smoker - smoking cessation education provided: Yes Alcohol: > 2 Drinks/Day Drugs: Cocaine - Immunization History Hx Tetanus Toxoid Vaccination: Yes Hx Influenza Vaccination: Yes Hx Pneumococcal Vaccination: No - Home Medications Home Medications: Ambulatory Orders Medication Instructions Recorded Pantoprazole Sodium [Protonix] 40 mg PO BID #60 ect 10/05/17 Gabapentin [Neurontin] 100 mg PO TID 30 Days #90 cap 10/14/17 QUEtiapine [SEROquel] 50 mg PO BID 30 Days #60 tab 10/14/17 QUEtiapine [SEROquel] 200 mg PO HS 30 Days #30 tab 10/14/17 - Allergies Allergies/Adverse Reactions: Allergies Allergy/AdvReac Type Severity Reaction Status Date / Time Penicillins Allergy convulsions Verified 10/02/17 19:21 Review of Systems ROS Statement: Except As Marked, All Systems Reviewed And Found Negative Psych: Positive for: Anxiety, Other (hallucinations) Physical Exam - Reviewed Nursing Documentation Reviewed: Yes Vital Signs Reviewed: Yes - Physical Exam Appears: Positive for: Non-toxic, No Acute Distress Head Exam: Positive for: ATRAUMATIC, NORMOCEPHALIC Skin: Positive for: Normal Color, Warm, Dry Eye Exam: Positive for: EOMI, Normal appearance, PERRL Neck: Positive for: Normal, Painless ROM, Supple Cardiovascular/Chest: Positive for: Regular Rate, Rhythm. Negative for: Murmur Respiratory: Positive for: Normal Breath Sounds. Negative for: Respiratory Distress Gastrointestinal/Abdominal: Positive for: Normal Exam, Soft Back: Positive for: Normal Inspection. Negative for: L CVA Tenderness, R CVA Tenderness Extremity: Positive for: Normal ROM. Negative for: Deformity Neurologic/Psych: Positive for: Alert, Oriented. Negative for: Motor/Sensory Deficits - ECG O2 Sat by Pulse Oximetry: 99 (RA) Pulse Ox Interpretation: Normal Medical Decision Making Medical Decision Making: Time: 21:25 Impression: 62 year old male hallucinations in setting of known etoh and schizophrenia Initial Plan: --Crisis evaluation --Ativan 1 mg PO Patient was evaluated by crisis and determined to be stable for d/c. Diagnosis is etoh adjustment mood disorder Scribe Attestation: Documented by Sammie Cabrera acting as a scribe for Isaías Feliciano MD, MD Scribe Attestation: All medical record entries made by the Scribe were at my direction and personally dictated by me. I have reviewed the chart and agree that the record accurately reflects my personal performance of the history, physical exam, medical decision making, and the department course for this patient. I have also personally directed, reviewed, and agree with the discharge instructions and disposition. Disposition - Clinical Impression Clinical Impression: Alcohol-induced mood disorder - Patient ED Disposition Is Patient to be Admitted: No - Disposition Disposition: Routine/Home Disposition Time: 01:30 Condition: STABLE Instructions: Alcohol Abuse and Alcoholism (DC) Forms: [employer]rolia (Mongolian)
[2018-01-04 02:48] VITALS: BP 132/86; PULSE 89; TEMP 98.2
== END 2018-01-04 02:47 | disposition home or self-care (01) ==
LOC: H.ER 16:52
DX: F10.94 Alcohol use, unspecified with alcohol-induced mood disorder (principal); E78.00 Pure hypercholesterolemia, unspecified; F31.9 Bipolar disorder, unspecified; F43.10 Post-traumatic stress disorder, unspecified; N40.0 Benign prostatic hyperplasia without lower urinary tract symptoms; Z86.73 Personal history of transient ischemic attack (TIA), and cerebral infarction without residual deficits; Z88.0 Allergy status to penicillin; F20.9 Schizophrenia, unspecified

== ENCOUNTER 2018-04-02 23:44 | Inpatient (IN) | payer MEDICARE ==
--- NOTE | 2018-04-03 00:51 | ED PDOC ---
HPI: Psych/Substance Abuse Time Seen by Provider: 04/03/18 00:22 Chief Complaint (Nursing): Psychiatric Evaluation Chief Complaint (Provider): Psychiatric Evaluation History Per: Patient History/Exam Limitations: no limitations Onset/Duration Of Symptoms: Days Current Symptoms Are (Timing): Still Present Suicide/Self Injury Attempted (Context): None Associated Symptoms: Depression, Suicidal Thoughts Additional Complaint(s): Sebastián Mayen is a 62 year old male with a past medical history of depression, bipolar disorder, seizures, and alcohol abuse who is presenting to the ED with complaints of constipation and suicidal ideation, onset several days ago. Patient states that he has not has a bowel movement for 4 days associated with abdominal discomfort. He also states that he wants to cut his throat and has been non-compliant with his depression medications. Patient denies any vomiting, fever, pain, homicidal ideation, or urinary symptoms. PMD: none provided Past Medical History Reviewed: Historical Data, Nursing Documentation, Vital Signs Vital Signs: Last Vital Signs Temp 97.6 F 04/02/18 23:46 Pulse 101 H 04/02/18 23:46 Resp 18 04/02/18 23:46 BP 139/80 04/02/18 23:46 Pulse Ox 97 04/02/18 23:46 - Medical History PMH: Anxiety, Arthritis, Benign Prostatic Hyperplasia, Bipolar Disorder, CVA, Depression, Hypercholesterolemia, Paranoia, Pneumonia, Post Traumatic Stress Disorder, Seizures Denies: Asthma, Bronchitis, COPD, Diabetes, Emphysema, Hepatitis, HIV, HTN, Pulmonary Embolism, Chronic Kidney Disease, Sexually Transmitted Disease, Sleep Apnea Comment Only: Schizophrenia (per old chart but pt denies) - Surgical History Surgical History: Appendectomy, Endoscopy, Tonsillectomy Other surgeries: exploratory laparotomy - Family History Family History: States: Unknown Family Hx - Social History Current smoker - smoking cessation education provided: No Alcohol: Other (history of abuse) Drugs: Denies - Immunization History Hx Tetanus Toxoid Vaccination: Yes Hx Influenza Vaccination: Yes Hx Pneumococcal Vaccination: No - Home Medications Home Medications: Ambulatory Orders Medication Instructions Recorded QUEtiapine [SEROquel] 200 mg PO HS 30 Days #30 tab 10/14/17 Gabapentin [Neurontin] 300 mg PO BID 03/02/18 [place] Carbonate [[place] 300 mg PO TID 04/03/18 Carbonate 300MG] QUEtiapine [SEROquel] 100 mg PO QAM 04/03/18 Trazodone HCl [Trazodone HCl] 150 mg PO HS 04/03/18 - Allergies Allergies/Adverse Reactions: Allergies Allergy/AdvReac Type Severity Reaction Status Date / Time Penicillins Allergy convulsions Verified 03/02/18 15:45 Review of Systems ROS Statement: Except As Marked, All Systems Reviewed And Found Negative Constitutional: Negative for: Fever Gastrointestinal: Positive for: Constipation. Negative for: Vomiting, Abdominal Pain Genitourinary Male: Negative for: Other (urinary symptoms) Psych: Positive for: Suicidal ideation. Negative for: Other (homicidal ideation ) Physical Exam - Reviewed Nursing Documentation Reviewed: Yes Vital Signs Reviewed: Yes - Physical Exam Appears: Positive for: Non-toxic, No Acute Distress Head Exam: Positive for: ATRAUMATIC, NORMAL INSPECTION, NORMOCEPHALIC Skin: Positive for: Normal Color, Warm, DRY Eye Exam: Positive for: EOMI, Normal appearance, PERRL ENT: Positive for: Normal ENT Inspection Neck: Positive for: Normal, Painless ROM Cardiovascular/Chest: Positive for: Regular Rate, Rhythm. Negative for: Murmur Respiratory: Positive for: Normal Breath Sounds. Negative for: Respiratory Distress Gastrointestinal/Abdominal: Positive for: Normal Exam, Soft. Negative for: Tenderness Back: Positive for: Normal Inspection. Negative for: L CVA Tenderness, R CVA Tenderness, Vertebral Tenderness Extremity: Positive for: Normal ROM. Negative for: Deformity, Swelling Neurologic/Psych: Positive for: Alert, Oriented (x3). Negative for: Motor/ Sensory Deficits - Laboratory Results Result Diagrams: 04/03/18 02:14 04/03/18 02:14 - ECG O2 Sat by Pulse Oximetry: 97 (RA) Pulse Ox Interpretation: Normal Medical Decision Making Medical Decision Making: Time: 00:35 Impression: Constipation, Suicidal Ideation Plan: --Acetaminophen --Alcohol Serum --CMP --Drug Screen --Salicylate --CBC --Fleet Enema a135 ml WA --X-Ray Abdomen --Urinalysis Vital signs are stable. Labs reviewed. In my opinion there are no current acute medical conditions that contraindicate the placement of this patient in a psychiatric unit. Scribe Attestation: Documented by, Crissy Brice acting as a scribe for Divine Oquendo MD. Provider Scribe Attestation: All medical record entries made by the Scribe were at my direction and personally dictated by me. I have reviewed the chart and agree that the record accurately reflects my personal performance of the history, physical exam, medical decision making, and the department course for this patient. I have also personally directed, reviewed, and agree with the discharge instructions and disposition. Disposition - Clinical Impression Clinical Impression: Bipolar disorder - Patient ED Disposition Is Patient to be Admitted: No Counseled Patient/Family Regarding: Studies Performed, Diagnosis - Disposition Disposition Time: 06:00 Condition: FAIR - Pt Status Changed To: Hospital Disposition Of: Inpatient - Admit Certification Admit to Inpatient:: After my assessment, the patient will require hospitalization for at least two midnights. This is because of the severity of symptoms shown, intensity of services needed, and/or the medical risk in this patient being treated as an outpatient. - POA Present On Arrival: None
[2018-04-03 02:22] LABS: BASO # 0.2 K/uL (0.0-0.2); BASO % 1.4 % (0.0-2.0); EOS # 0.2 K/uL (0.0-0.7); EOS % 1.8 % (0.0-4.0); HEMOGLOBIN 13.4 g/dL (12.0-18.0); LYMPH # 1.9 K/uL (1.0-4.3); LYMPH % 16.7 % (20.0-40.0); MEAN CELL VOLUME 90.9 fl (80.0-94.0); MEAN CORPUSCULAR HEMOGLOBIN 30.7 pg (27.0-31.0); MEAN CORPUSCULAR HGB CONC 33.8 g/dL (33.0-37.0); MEAN PLATELET VOLUME 8.7 fl (7.2-11.7); MONO # 0.8 K/uL (0.0-0.8); MONO % 7.4 % (0.0-10.0); NEUT % 72.7 % (50.0-75.0); RBC 4.38 Mil/uL (4.40-5.90); RED CELL DISTRIBUTION WIDTH 13.6 % (11.5-14.5); WHITE BLOOD COUNT 11.1 K/uL (4.8-10.8)
[2018-04-03 02:37] LABS: ALBUMIN 4.3 g/dL (3.5-5.0); ALT/SGPT 86 U/L (21-72); AST/SGOT 90 U/L (17-59); BLOOD UREA NITROGEN 8 mg/dl (9-20); CALCIUM 9.1 mg/dL (8.4-10.2); GFR AFRICAN-AMERICAN > 60; GFR NON-AFRICAN AMERICAN > 60
[2018-04-03 02:38] LABS: ACETAMINOPHEN < 10.0 ug/ml (10.0-30.0); SALICYLATE < 1.0 mg/dl
[2018-04-03 05:35] LABS: URINE BACTERIA RARE (<OCC); URINE BILIRUBIN NEGATIVE (NEGATIVE); URINE BLOOD NEGATIVE (NEGATIVE); URINE CLARITY SLIGHTY-CLOUDY (Clear); URINE COLOR YELLOW (YELLOW); URINE GLUCOSE (UA) NEG (Normal); URINE LEUKOCYTE ESTERASE NEG Leu/uL (Negative); URINE PROTEIN 100 mg/dL (NEGATIVE)
[2018-04-03 06:16] LABS: BARBITURATES, UR NEGATIVE (NEGATIVE); BENZODIAZEPINES, UR POSITIVE (NEGATIVE); OPIATES, UR POSITIVE (NEGATIVE); PHENCYCLIDINE, UR NEGATIVE (NEGATIVE)
[2018-04-03] MEDS ORDERED: Alum-Mag Hydrox-Simethicone Susp (30 mL) PO PRN (07:17)
[2018-04-03] MEDS ORDERED: Bismuth Subsalicylate 262 mg/15 ml Sus (240 ml) PO PRN (07:17)
[2018-04-03] MEDS ORDERED: Magnesium Hydroxide Susp 30 ml UD PO PRN (07:17)
--- NOTE | 2018-04-03 07:20 | PCM.PSYCH ---
Initial Psychiatric Evaluation - Initial Psychiatric Evaluation Type of Admission: Voluntary Legal Status: Capacity Chief Complaint (in patient's own words): "I'm depressed." Patient's Reaction to Hospitalization: HPI: 62 y/o male, w/ h/o bipolar disorder, alcohol use disorder, opioid use disorder, presents w/ worsening depression, anxiety and suicidal ideation in the context of non-compliance with medications and alcohol and opioid abuse. +Hopelessness +sleep/appetite disturbances. Denies AH/VH/ paranoia/delusiosn. Uses 6-7 bags of heroin/day; drinks 1 quart of vodka/day PPHx: Multiple past psychiatric admission and substance abuse rehabs. History of >3 suicide attempts PMHx: Hepatitis C, Arthritis, Chronic pain All: PCN FHx: Mother w/ Alzheimer dz, Father with "mood problems" and Brother with mental retardation. SHx: Father of 3 adults children that have no contact with patient for the past 10 years. No close family as patient stated he have two siblings that also have no contact with patient for many years. Daily ETOH use (1 quart vodka a day). Uses 6-7 bags of heroin/day; Legal charges in the past, such as DWI and possession of stolen property. On SSD. Current Medications: Active Medications Generic Name Dose Route Start Last Admin Trade Name Freq PRN Reason Stop Dose Admin Acetaminophen 650 mg 04/03/18 07:17 Tylenol 325mg Tab PO Q4 PRN Pain, moderate (4-7) Al Hydrox/Mg Hydrox/Simethicone 30 ml 04/03/18 07:17 Maalox Plus 30 Ml PO Q4 PRN Dyspepsia Bismuth Subsalicylate 524 mg 04/03/18 07:17 Pepto-Bismol PO Q4 PRN Diarrhea Lorazepam 0.5 mg 04/03/18 07:17 Ativan PO 04/17/18 07:18 HS PRN Insomnia Lorazepam 0.5 mg 04/03/18 07:17 Ativan PO 04/17/18 07:18 Q6 PRN Anixety/Agitation Magnesium Hydroxide 30 ml 04/03/18 07:17 Milk Of Magnesia PO HS PRN Constipation Past Psychiatric History - Past Psychiatric History Pertinent Medical Hx (Current Medical&Sleep Prob, Allergies): Allergies Allergy/AdvReac Type Severity Reaction Status Date / Time Penicillins Allergy convulsions Verified 03/02/18 15:45 QUEtiapine [SEROquel] 200 mg PO HS 30 Days #30 tab 10/14/17 Gabapentin [Neurontin] 300 mg PO BID 03/02/18 [place] Carbonate [[place] Carbonate 300MG] 300 mg PO TID 04/03/18 QUEtiapine [SEROquel] 100 mg PO QAM 04/03/18 Trazodone HCl [Trazodone HCl] 150 mg PO HS 04/03/18 Review of Systems - Psychiatric Psychiatric: As Per HPI, Abnormal Sleep Pattern, Anhedonia, Change in Appetite, Depression, Difficulty Concentrating, Hopelessness, Irritability, Suicidal Ideation Mental Status Examination - Personal Presentation Personal Presentation: Looks older than stated age - Affect Affect: Constricted, Depressed - Motor Activity Motor Activity: Calm - Reliability in Providing Information Reliability in Providing Information: Fair - Speech Speech: Organized - Mood Mood: Depressed, Anxious - Formal Thought Process Formal Thought Process: No Impairment - Hallucinations/Delusions Additional comments: No AH/VH/paranoia/delusions - Obsessions/Compulsions Obsessions: No Compulsions: No - Cognitive Functions Orientation: Person, Place, Situation, Time Sensorium: Alert Attention/Concentration: Attentive Estimate of Intelligence: Average Judgement: Imparied, as evidence by: Poor judgement Memory: Recent intact, as evidence by: Ability to recall events of the day, Remote intact, as evidenced by: Abilit to recall sig. life events, Remote intact , as evidenced by: Ability to recall historical events - Risk Risk: Suicidal, Diminished functioning - Strength & Assets Inventory Strength & Assets Inventory: Cooperative DSM 5 DX - DSM 5 DSM 5 Diagnosis: Bipolar Disorder; Alcohol Use Disorder; Opioid Use Disorder - Recommended/Plan of Treatment Treatment Recommendations and Plan of Treatment: Bipolar Disorder; Alcohol Use Disorder; Opioid Use Disorder -Admit to psychiatry unit -Individual and group therapy -Restart Seroquel, [place], Trazodone -Ativan to prevent Alcohol withdrawal -Thiamine and Folate -PRNs for opioid withdrawal -Psychoeducation -Disposition planning Projected ELOS: 7-10 days Discharge Plan and Discharge Criteria: Discharge when patient is psychiatrically stable
--- NOTE | 2018-04-03 10:23 | RAD ---
HISTORY: Constipation. COMPARISON: 04/21/2011 FINDINGS: BOWEL: Normal. No obstruction. No free air. BONES: Normal. OTHER FINDINGS: None. IMPRESSION: No significant or acute findings to account for/ related to the clinical presentation. No significant interval change compared to the prior examination(s).
[2018-04-03 10:36] VITALS: O2SAT 97
--- NOTE | 2018-04-03 11:55 | PCM.BM ---
Treatment Plan Problems - Problems identified on initial assessmt Problem 1 Date Initiated: 04/03/18 Time Initiated: 11:55 Date resolved: 04/03/18 Assessment reference: NA Status: Active Treatment assets and liabiliti Patient Assests: adapts well, cooperative, educated, self-reliant, ADL independent, physically healthy, negotiates basic needs, good past tx response, cognitively intact, good interpersonal skills Patient Liabilities: substance abuse, medical problems - Milieu Protocol Milieu Narrative: Bipolar Disorder; Alcohol Use Disorder; Opioid Use Disorder -Admit to psychiatry unit -Individual and group therapy -Restart Seroquel, [place], Trazodone -Ativan to prevent Alcohol withdrawal -Thiamine and Folate -PRNs for opioid withdrawal -Psychoeducation -Disposition planning Discharge/Continuing Care - Treatment Team Participation Patient/Family/SO Statement: Bipolar Disorder; Alcohol Use Disorder; Opioid Use Disorder -Admit to psychiatry unit -Individual and group therapy -Restart Seroquel, [place], Trazodone -Ativan to prevent Alcohol withdrawal -Thiamine and Folate -PRNs for opioid withdrawal -Psychoeducation -Disposition planning
[2018-04-03 11:57] VITALS: BMI 24.1
--- NOTE | 2018-04-03 12:01 | PCM.BM ---
Treatment Plan Problems - Problems identified on initial assessmt Problem 1 Date Initiated: 04/03/18 Time Initiated: 11:55 Date resolved: 04/03/18 Assessment reference: NA Status: Active Hoplessness/Helplessness Date Initiated: 04/03/18 Time Initiated: 11:59 Assessment reference: NA Status: Active Problem 2 Date Initiated: 04/03/18 Time Initiated: 12:03 Assessment reference: NA Status: Active Feelings of Worthlessnes Date Initiated: 04/03/18 Time Initiated: 12:04 Assessment reference: NA Status: Active Problem 3 Date Initiated: 04/03/18 Time Initiated: 12:05 Assessment reference: NA Status: Active Problem 4 Date Initiated: 04/03/18 Time Initiated: 12:07 Assessment reference: NA Status: Active Treatment assets and liabiliti Patient Assests: adapts well, cooperative, educated, self-reliant, ADL independent, physically healthy, negotiates basic needs, good past tx response, cognitively intact, good interpersonal skills Patient Liabilities: substance abuse, medical problems - Milieu Protocol Maintain good personal hygiene: daily Encourage regular showers, daily Remind patient to perform daily oral care, daily Assist patient to perform ADL's Maintain personal safety: every shift Educate patient to report safety concerns to staff, every shift Monitor environment for contraband/sharps Medication safety: Monitor for expected outcome, potential side effects: every shift, Assess barriers to learning: every shift, Assess readiness for medication education: every shift Milieu Narrative: Bipolar Disorder; Alcohol Use Disorder; Opioid Use Disorder -Admit to psychiatry unit -Individual and group therapy -Restart Seroquel, [place], Trazodone -Ativan to prevent Alcohol withdrawal -Thiamine and Folate -PRNs for opioid withdrawal -Psychoeducation -Disposition planning Discharge/Continuing Care - Treatment Team Participation Patient/Family/SO Statement: Bipolar Disorder; Alcohol Use Disorder; Opioid Use Disorder -Admit to psychiatry unit -Individual and group therapy -Restart Seroquel, [place], Trazodone -Ativan to prevent Alcohol withdrawal -Thiamine and Folate -PRNs for opioid withdrawal -Psychoeducation -Disposition planning Treatment Plan Review - Problem Problem 1 Time Initiated: 11:55
--- NOTE | 2018-04-03 14:54 | CP.PCM.CON ---
History of Present Illness - History of Present Illness History of Present Illness: 62 yo male with history of Hep C, Bipolar DO and Multi-substance Abuse admitted in [facility] because of worsening depression and suicidal ideation. Review of Systems - Review of Systems All systems: reviewed and no additional remarkable complaints except (aside from those mentioned above, 12 point system review were negative by me) Past Patient History - Infectious Disease Hx of Infectious Diseases: None - Tetanus Immunizations Tetanus Immunization: Unknown - Past Medical History & Family History Past Medical History?: Yes - Past Social History Smoking Status: Unknown If Ever Smoked Chewing Tobacco Use: No Cigar Use: No Alcohol: > 2 Drinks/Day (history of abuse) Drugs: Denies, Opiates - CARDIAC Hx Hypercholesterolemia: Yes Hx Hypertension: No - PULMONARY Hx Asthma: No Hx Bronchitis: No Hx Chronic Obstructive Pulmonary Disease (COPD): No Hx Emphysema: No Hx Pneumonia: Yes Hx Pulmonary Embolism: No Hx Sleep Apnea: No - NEUROLOGICAL Hx Seizures: Yes - HEENT Hx HEENT Problems: No - RENAL Hx Chronic Kidney Disease: No - ENDOCRINE/METABOLIC Hx Endocrine Disorders: No - HEMATOLOGICAL/ONCOLOGICAL Hx Human Immunodeficiency Virus (HIV): No - INTEGUMENTARY Hx Dermatological Problems: No - MUSCULOSKELETAL/RHEUMATOLOGICAL Hx Arthritis: Yes Hx Falls: Yes - GASTROINTESTINAL Hx Gastrointestinal Disorders: Yes Other/Comment: hep c - GENITOURINARY/GYNECOLOGICAL Hx Sexually Transmitted Disorders: No - PSYCHIATRIC Hx Depression: Yes Hx Substance Use: Yes - SURGICAL HISTORY Hx Appendectomy: Yes Hx Tonsillectomy: Yes - ANESTHESIA Hx Anesthesia: Yes Hx Anesthesia Reactions: No Hx Malignant Hyperthermia: No Meds Allergies/Adverse Reactions: Allergies Allergy/AdvReac Type Severity Reaction Status Date / Time Penicillins Allergy convulsions Verified 03/02/18 15:45 - Medications Medications: Current Medications Acetaminophen (Tylenol 325mg Tab) 650 mg PO Q4 PRN PRN Reason: Pain, moderate (4-7) Al Hydrox/Mg Hydrox/Simethicone (Maalox Plus 30 Ml) 30 ml PO Q4 PRN PRN Reason: Dyspepsia Bismuth Subsalicylate (Pepto-Bismol) 524 mg PO Q4 PRN PRN Reason: Diarrhea Clonidine HCl (Catapres) 0.1 mg PO Q8 REAL Stop: 04/06/18 07:00 Folic Acid (Folic Acid) 1 mg PO DAILY [facility] Last Admin: 04/03/18 13:30 Dose: 1 mg Gabapentin (Neurontin) 300 mg PO BID [facility] [place] Carbonate ([place] Carbonate 300mg) 300 mg PO BID [facility] Last Admin: 04/03/18 13:30 Dose: 300 mg Loperamide HCl (Imodium) 2 mg PO QID PRN PRN Reason: Diarrhea Lorazepam (Ativan) 1 mg PO TID [facility] Last Admin: 04/03/18 12:48 Dose: 1 mg Magnesium Hydroxide (Milk Of Magnesia) 30 ml PO HS PRN PRN Reason: Constipation Ondansetron HCl (Zofran Tab) 4 mg PO Q6 PRN PRN Reason: Nausea/Vomiting Quetiapine Fumarate (Seroquel) 100 mg PO HS [facility] Thiamine HCl (Vitamin B1 Tab) 100 mg PO DAILY [facility] Last Admin: 04/03/18 13:30 Dose: 100 mg Trazodone HCl (Desyrel) 50 mg PO HS [facility] Physical Exam - Constitutional Appears: No Acute Distress - Head Exam Head Exam: ATRAUMATIC - Eye Exam Eye Exam: absent: Scleral icterus - ENT Exam ENT Exam: Mucous Membranes Moist - Neck Exam Neck exam: Negative for: Meningismus - Respiratory Exam Respiratory Exam: absent: Rales, Rhonchi, Wheezes, Respiratory Distress - Cardiovascular Exam Cardiovascular Exam: REGULAR RHYTHM, +S1, +S2 - GI/Abdominal Exam GI & Abdominal Exam: Soft. absent: Tenderness - Rectal Exam Rectal Exam: Deferred - Back Exam Back exam: NORMAL INSPECTION - Neurological Exam Neurological exam: Alert, Oriented x3 - Psychiatric Exam Psychiatric exam: Normal Affect - Skin Skin Exam: Dry, Intact Results - Vital Signs Recent Vital Signs: Last Vital Signs Temp 98 F 04/03/18 10:00 Pulse 79 04/03/18 10:00 Resp 18 04/03/18 10:00 BP 137/79 04/03/18 10:00 Pulse Ox 97 04/03/18 10:36 - Labs Result Diagrams: 04/03/18 02:14 04/03/18 02:14 Labs: Laboratory Results - last 24 hr 04/03/18 04/03/18 04/03/18 02:14 02:14 02:14 WBC 11.1 H RBC 4.38 L Hgb 13.4 Hct 39.8 MCV 90.9 MCH 30.7 MCHC 33.8 RDW 13.6 Plt Count 301 MPV 8.7 Neut % (Auto) 72.7 Lymph % (Auto) 16.7 L Day % (Auto) 7.4 Eos % (Auto) 1.8 Baso % (Auto) 1.4 Neut # (Auto) 8.0 H Lymph # (Auto) 1.9 Day # (Auto) 0.8 Eos # (Auto) 0.2 Baso # (Auto) 0.2 Sodium 140 Potassium 4.0 Chloride 101 Carbon Dioxide 23 Anion Gap 20 BUN 8 L Creatinine 0.5 L Est GFR ( Amer) > 60 Est GFR (Non-Af Amer) > 60 Random Glucose 139 H Calcium 9.1 Total Bilirubin 0.6 AST 90 H D ALT 86 H D Alkaline Phosphatase 133 H D Total Protein 8.5 H Albumin 4.3 Globulin 4.2 H Albumin/Globulin Ratio 1.0 Urine Color Urine Clarity Urine pH Ur Specific Neptune Urine Protein Urine Glucose (UA) Urine Ketones Urine Blood Urine Nitrate Urine Bilirubin Urine Urobilinogen Ur Leukocyte Esterase Urine RBC (Auto) Urine Microscopic WBC Urine Bacteria Salicylates < 1.0 Urine Opiates Screen Urine Methadone Screen Acetaminophen < 10.0 L Ur Barbiturates Screen Ur Phencyclidine Scrn Ur Amphetamines Screen U Benzodiazepines Scrn U Oth Cocaine Metabols U Cannabinoids Screen Alcohol, Quantitative 106 H 04/03/18 04/03/18 05:29 05:29 WBC RBC Hgb Hct MCV MCH MCHC RDW Plt Count MPV Neut % (Auto) Lymph % (Auto) Day % (Auto) Eos % (Auto) Baso % (Auto) Neut # (Auto) Lymph # (Auto) Day # (Auto) Eos # (Auto) Baso # (Auto) Sodium Potassium Chloride Carbon Dioxide Anion Gap BUN Creatinine Est GFR ( Amer) Est GFR (Non-Af Amer) Random Glucose Calcium Total Bilirubin AST ALT Alkaline Phosphatase Total Protein Albumin Globulin Albumin/Globulin Ratio Urine Color Yellow Urine Clarity Slighty-cloudy Urine pH 6.0 Ur Specific Neptune 1.023 Urine Protein 100 Urine Glucose (UA) Neg Urine Ketones Negative Urine Blood Negative Urine Nitrate Negative Urine Bilirubin Negative Urine Urobilinogen 4.0 Ur Leukocyte Esterase Neg Urine RBC (Auto) 2 Urine Microscopic WBC 2 Urine Bacteria Rare Salicylates Urine Opiates Screen Positive H Urine Methadone Screen Negative Acetaminophen Ur Barbiturates Screen Negative Ur Phencyclidine Scrn Negative Ur Amphetamines Screen Negative U Benzodiazepines Scrn Positive U Oth Cocaine Metabols Negative U Cannabinoids Screen Negative Alcohol, Quantitative Assessment & Plan (1) Suicidal ideation Status: Acute Comment: psyche is managing (2) Multiple substance abuse Status: Chronic Comment: psyche is managing
[2018-04-04 07:20] LABS: HDL CHOLESTEROL 35 MG/DL (30-70)
[2018-04-04 07:33] LABS: LDL CHOLESTEROL 91 mg/dL (0-129)
[2018-04-04 07:40] LABS: T4 7.23 ug/dl (5.5-11.0)
--- NOTE | 2018-04-04 10:11 | PCM.PYCHPN ---
Psychiatric Progress Note - Psychiatric Progress Note Patient seen today, length of contact: Patient evaluated, case discussed with team, chart reviewed Patient Chief Complaint: "I'm depressed." Problems Identified/Issues Discussed: Patient continues to report feeling depressed, w/ suicidal ideation to stab himself with an object and auditory hallucinations of people laughing at him. + Sleep disturbances. He denies adverse effects to medications. Medication Change: Yes (Increase Trazodone) Medical Record Reviewed: Yes Consults ordered or reviewed: Medicine consult Mental Status Examination - Cognitive Function Orientation: Person, Place, Situation, Time Memory: Intact Attention: WNL Concentration: WNL Fund of Knowledge: WNL - Mood Mood: Depressed, Anxious - Affect Affect: Constricted, Depressed - Speech Speech: Appropriate - Formal Thought Process Formal Thought Process: Hallucinations Psychotic Thoughts and Behaviors: +AH of laughter - Suicidal Ideation Suicidal Ideation: Yes Plan: +Ideation to stab himself - Homicidal Ideation Homicidal Ideation: No Goal/Treatment Plan - Goal/Treatment Plan Need for Continued Stay: Remain at risks for inpatient hospitalization, Severe depression anxiety, Discharge may exacerbated symptoms Progress Toward Problem(s) and Goals/Treatment Plan: Bipolar Disorder; Alcohol Use Disorder; Opioid Use Disorder -Individual and group therapy -Continue Seroquel, [place] -Increase Trazodone -Ativan to prevent Alcohol withdrawal -Thiamine and Folate -PRNs for opioid withdrawal -Psychoeducation -Disposition planning Estimated Date of D/C: 04/11/18
[2018-04-04 17:01] LABS: FOLATE > 20.0 ng/mL
--- NOTE | 2018-04-05 11:03 | PCM.PYCHPN ---
Psychiatric Progress Note - Psychiatric Progress Note Patient seen today, length of contact: Patient evaluated, case discussed with team, chart reviewed Patient Chief Complaint: "I'm depressed." Problems Identified/Issues Discussed: Patient continues to report feeling depressed, w/ suicidal ideation w/o plan, w / continued AH. +Sleep disturbances. He denies adverse effects to medications. Medication Change: Yes (Increase Seroquel; Taper Ativan) Medical Record Reviewed: Yes Consults ordered or reviewed: Medicine consult Mental Status Examination - Cognitive Function Orientation: Person, Place, Situation, Time Memory: Intact Attention: WNL Concentration: WNL Association: [facility] Fund of Knowledge: [facility] Decription of patient's judgement and insights: Chronic poor I/J re: substance abuse; Psychoeducation provided - Mood Mood: Depressed, Anxious - Affect Affect: Constricted, Depressed - Speech Speech: Appropriate - Formal Thought Process Formal Thought Process: Hallucinations Psychotic Thoughts and Behaviors: +AH of laughter - Suicidal Ideation Suicidal Ideation: Yes Plan: No current plan/intent - Homicidal Ideation Homicidal Ideation: No Goal/Treatment Plan - Goal/Treatment Plan Need for Continued Stay: Remain at risks for inpatient hospitalization, Severe depression anxiety, Discharge may exacerbated symptoms Progress Toward Problem(s) and Goals/Treatment Plan: Bipolar Disorder; Alcohol Use Disorder; Opioid Use Disorder -Individual and group therapy -Increase Seroquel -Continue Trazodone and [place] -Taper Ativan; no current signs/symptoms of ETOH withdrawal -Thiamine and Folate -PRNs for opioid withdrawal -Psychoeducation -Disposition planning Estimated Date of D/C: 04/11/18
--- NOTE | 2018-04-06 08:29 | PCM.PYCHPN ---
Psychiatric Progress Note - Psychiatric Progress Note Patient seen today, length of contact: Patient evaluated, case discussed with team, chart reviewed Patient Chief Complaint: "I'm depressed." Problems Identified/Issues Discussed: No new events overnight. Patient continues to report feeling depressed, w/ suicidal ideation w/o plan, w/ continued AH of laughter. +Sleep disturbances. He denies adverse effects to medications. Medication Change: Yes (Increase Seroquel) Medical Record Reviewed: Yes Consults ordered or reviewed: Medicine consult Mental Status Examination - Cognitive Function Orientation: Person, Place, Situation, Time Memory: Intact Attention: WNL Concentration: WNL Association: [facility] Fund of Knowledge: [facility] Decription of patient's judgement and insights: Chronic poor I/J re: substance abuse; Psychoeducation provided - Mood Mood: Depressed, Anxious - Affect Affect: Constricted, Depressed - Speech Speech: Appropriate - Formal Thought Process Formal Thought Process: Hallucinations Psychotic Thoughts and Behaviors: +AH of laughter - Suicidal Ideation Suicidal Ideation: Yes - Homicidal Ideation Homicidal Ideation: No Goal/Treatment Plan - Goal/Treatment Plan Need for Continued Stay: Remain at risks for inpatient hospitalization, Severe depression anxiety, Discharge may exacerbated symptoms Progress Toward Problem(s) and Goals/Treatment Plan: Bipolar Disorder; Alcohol Use Disorder; Opioid Use Disorder -Individual and group therapy -Increase Seroquel -Continue Trazodone and [place] -Taper Ativan; no current signs/symptoms of ETOH withdrawal -Thiamine and Folate -PRNs for opioid withdrawal -Psychoeducation -Disposition planning Estimated Date of D/C: 04/12/18
--- NOTE | 2018-04-07 11:00 | PCM.PYCHPN ---
Psychiatric Progress Note - Psychiatric Progress Note Patient seen today, length of contact: Patient evaluated, case discussed with team, chart reviewed Patient Chief Complaint: "I'm depressed." Problems Identified/Issues Discussed: Patient continues to report feeling depressed, w/ suicidal ideation w/o plan, w / continued AH of laughter. No alcohol withdrawal symptoms. He denies adverse effects to medications. Medication Change: Yes (Taper Ativan) Medical Record Reviewed: Yes Consults ordered or reviewed: Medicine consult Mental Status Examination - Cognitive Function Orientation: Person, Place, Situation, Time Memory: Intact Attention: WNL Concentration: WNL Association: [facility] Fund of Knowledge: [facility] Decription of patient's judgement and insights: Chronic poor I/J re: substance abuse; Psychoeducation provided - Mood Mood: Depressed, Anxious - Affect Affect: Constricted, Depressed - Speech Speech: Appropriate - Formal Thought Process Formal Thought Process: Hallucinations Psychotic Thoughts and Behaviors: +AH of laughter - Suicidal Ideation Suicidal Ideation: Yes - Homicidal Ideation Homicidal Ideation: No Goal/Treatment Plan - Goal/Treatment Plan Need for Continued Stay: Remain at risks for inpatient hospitalization, Severe depression anxiety, Discharge may exacerbated symptoms Progress Toward Problem(s) and Goals/Treatment Plan: Bipolar Disorder; Alcohol Use Disorder; Opioid Use Disorder -Individual and group therapy -Continue Seroquel -Continue Trazodone and [place] -Taper Ativan; no current signs/symptoms of ETOH withdrawal -Thiamine and Folate -Psychoeducation -Disposition planning Estimated Date of D/C: 04/12/18
--- NOTE | 2018-04-08 09:59 | PCM.PYCHPN ---
Psychiatric Progress Note - Psychiatric Progress Note Patient seen today, length of contact: Patient evaluated, case discussed with team, chart reviewed Patient Chief Complaint: "I'm depressed." Problems Identified/Issues Discussed: Patient continues to report feeling depressed w/ continued AH of laughter. No current suicidal ideation/plan/intent. No alcohol withdrawal symptoms. He denies adverse effects to medications. Medication Change: Yes (Increase Seroquel to 100 mg PO AM/ 250 mg PO HS) Medical Record Reviewed: Yes Consults ordered or reviewed: Medicine consult Mental Status Examination - Cognitive Function Orientation: Person, Place, Situation, Time Memory: Intact Attention: WNL Concentration: WNL Association: [facility] Fund of Knowledge: [facility] Decription of patient's judgement and insights: Chronic poor I/J re: substance abuse; Psychoeducation provided - Mood Mood: Depressed, Anxious - Affect Affect: Constricted, Depressed - Speech Speech: Appropriate - Formal Thought Process Formal Thought Process: Hallucinations Psychotic Thoughts and Behaviors: +AH of laughter - Suicidal Ideation Suicidal Ideation: No - Homicidal Ideation Homicidal Ideation: No Goal/Treatment Plan - Goal/Treatment Plan Need for Continued Stay: Remain at risks for inpatient hospitalization, Severe depression anxiety, Discharge may exacerbated symptoms Progress Toward Problem(s) and Goals/Treatment Plan: Bipolar Disorder; Alcohol Use Disorder; Opioid Use Disorder -Individual and group therapy -Increase Seroquel -Continue Trazodone and [place] -Taper Ativan; no current signs/symptoms of ETOH withdrawal -Thiamine and Folate -Psychoeducation -Disposition planning Estimated Date of D/C: 04/13/18
--- NOTE | 2018-04-09 08:50 | PCM.PYCHPN ---
Psychiatric Progress Note - Psychiatric Progress Note Patient seen today, length of contact: Patient evaluated, case discussed with team, chart reviewed Patient Chief Complaint: "I'm depressed." Problems Identified/Issues Discussed: Patient continues to report feeling depressed w/ continued AH of laughter, but states they are less frequent. No current suicidal ideation/plan/intent. No alcohol withdrawal symptoms. He denies adverse effects to medications. Medication Change: Yes (Taper Ativan) Medical Record Reviewed: Yes Consults ordered or reviewed: Medicine consult Mental Status Examination - Cognitive Function Orientation: Person, Place, Situation, Time Memory: Intact Attention: WNL Concentration: WNL Association: [facility] Fund of Knowledge: [facility] Decription of patient's judgement and insights: Chronic poor I/J re: substance abuse; Psychoeducation provided - Mood Mood: Depressed, Anxious - Affect Affect: Constricted, Depressed - Speech Speech: Appropriate - Formal Thought Process Formal Thought Process: Hallucinations Psychotic Thoughts and Behaviors: +AH of laughter, less frequent - Suicidal Ideation Suicidal Ideation: No - Homicidal Ideation Homicidal Ideation: No Goal/Treatment Plan - Goal/Treatment Plan Need for Continued Stay: Remain at risks for inpatient hospitalization, Severe depression anxiety, Discharge may exacerbated symptoms Progress Toward Problem(s) and Goals/Treatment Plan: Bipolar Disorder; Alcohol Use Disorder; Opioid Use Disorder -Individual and group therapy -Continue Seroquel -Continue Trazodone and [place] -Taper Ativan; no current signs/symptoms of ETOH withdrawal -Thiamine and Folate -Psychoeducation -Disposition planning Estimated Date of D/C: 04/13/18
--- NOTE | 2018-04-10 18:01 | PCM.PYCHPN ---
Psychiatric Progress Note - Psychiatric Progress Note Patient seen today, length of contact: Patient evaluated, case discussed with team, chart reviewed Patient Chief Complaint: pt has remained depressed and anxious but minimal withdrawl symptoms .pt has poor insight and poor judgement regarding alcohol abuse and need further stabilization. Medication Change: Yes (Taper Ativan) Medical Record Reviewed: Yes Mental Status Examination - Cognitive Function Orientation: Person, Place, Situation, Time Memory: Intact Attention: WNL Concentration: WNL Association: WNL Fund of Knowledge: WNL - Mood Mood: Depressed, Anxious - Affect Affect: Constricted, Depressed - Speech Speech: Appropriate - Formal Thought Process Formal Thought Process: Hallucinations - Suicidal Ideation Suicidal Ideation: No - Homicidal Ideation Homicidal Ideation: No Goal/Treatment Plan - Goal/Treatment Plan Need for Continued Stay: Remain at risks for inpatient hospitalization, Severe depression anxiety, Discharge may exacerbated symptoms Estimated Date of D/C: 04/13/18
[2018-04-11 06:36] LABS: BASO # 0.1 K/uL (0.0-0.2); BASO % 1.4 % (0.0-2.0); EOS # 0.6 K/uL (0.0-0.7); EOS % 9.3 % (0.0-4.0); HEMOGLOBIN 14.9 g/dL (12.0-18.0); LYMPH # 1.9 K/uL (1.0-4.3); LYMPH % 27.1 % (20.0-40.0); MEAN CELL VOLUME 91.7 fl (80.0-94.0); MEAN CORPUSCULAR HGB CONC 33.9 g/dL (33.0-37.0); MEAN PLATELET VOLUME 9.9 fl (7.2-11.7); MONO # 0.8 K/uL (0.0-0.8); NEUT # 3.6 K/uL (1.8-7.0); NEUT % 51.2 % (50.0-75.0); RBC 4.78 Mil/uL (4.40-5.90)
[2018-04-11 07:01] LABS: ALBUMIN 4.1 g/dL (3.5-5.0); ALT/SGPT 64 U/L (21-72); AST/SGOT 35 U/L (17-59); BLOOD UREA NITROGEN 16 mg/dl (9-20); CALCIUM 9.2 mg/dL (8.4-10.2); GFR AFRICAN-AMERICAN > 60; GFR NON-AFRICAN AMERICAN > 60
--- NOTE | 2018-04-11 11:10 | PCM.PYCHPN ---
Psychiatric Progress Note - Psychiatric Progress Note Patient seen today, length of contact: Patient evaluated, case discussed with team, chart reviewed Patient Chief Complaint: "I'm feeling better." Problems Identified/Issues Discussed: Patient reports that his mood is improving. No current AH/VH/SI/HI. No thoughts of self harm. He is interested in substance abuse rehab at this time. No alcohol withdrawal symptoms. He denies adverse effects to medications. Diagnostic Results: Li 0.4 on 04/11/18 Medication Change: No Medical Record Reviewed: Yes Consults ordered or reviewed: Medicine consult Mental Status Examination - Cognitive Function Orientation: Person, Place, Situation, Time Memory: Intact Attention: WNL Concentration: WNL Association: WNL Fund of Knowledge: WNL Decription of patient's judgement and insights: Improving I/J - Mood Mood: Depressed - Affect Affect: Broad - Speech Speech: Appropriate - Formal Thought Process Formal Thought Process: No Impairment Psychotic Thoughts and Behaviors: No AH/VH/paranoia/delusions - Suicidal Ideation Suicidal Ideation: No - Homicidal Ideation Homicidal Ideation: No Goal/Treatment Plan - Goal/Treatment Plan Progress Toward Problem(s) and Goals/Treatment Plan: Bipolar Disorder; Alcohol Use Disorder; Opioid Use Disorder; Patient is psychiatrically stable for referral to substance abuse treatment program -Individual and group therapy -Continue Seroquel -Continue Trazodone and [place] -Li level 0.4 on 04/11/18 -Thiamine and Folate -Psychoeducation -Disposition planning Estimated Date of D/C: 04/13/18
--- NOTE | 2018-04-11 11:21 | PCM.BM ---
Treatment Plan Problems - Problems identified on initial assessmt Problem 1 Date Initiated: 04/03/18 Time Initiated: 11:55 Date resolved: 04/03/18 Assessment reference: NA Status: Active Problem 2 Date Initiated: 04/03/18 Time Initiated: 12:03 Assessment reference: NA Status: Active Problem 3 Date Initiated: 04/03/18 Time Initiated: 12:05 Assessment reference: NA Status: Active Problem 4 Date Initiated: 04/03/18 Time Initiated: 12:07 Assessment reference: NA Status: Active Hoplessness/Helplessness Date Initiated: 04/03/18 Time Initiated: 11:59 Assessment reference: NA Status: Active Feelings of Worthlessnes Date Initiated: 04/03/18 Time Initiated: 12:04 Assessment reference: NA Status: Active Treatment assets and liabiliti Patient Assests: adapts well, cooperative, educated, self-reliant, ADL independent, physically healthy, negotiates basic needs, good past tx response, cognitively intact, good interpersonal skills Patient Liabilities: substance abuse, medical problems - Milieu Protocol Maintain good personal hygiene: daily Encourage regular showers, daily Remind patient to perform daily oral care, daily Assist patient to perform ADL's Maintain personal safety: every shift Educate patient to report safety concerns to staff, every shift Monitor environment for contraband/sharps Medication safety: Monitor for expected outcome, potential side effects: every shift, Assess barriers to learning: every shift, Assess readiness for medication education: every shift Milieu Narrative: Bipolar Disorder; Alcohol Use Disorder; Opioid Use Disorder; Patient is psychiatrically stable for referral to substance abuse treatment program -Individual and group therapy -Continue Seroquel -Continue Trazodone and [place] -Li level 0.4 on 04/11/18 -Thiamine and Folate -Psychoeducation -Disposition planning Family Contact Family involvement: Famliy/SO not involved - Goals for Treatment Patient goals for treatment: "I need to get inot a place. I can't live like this anymore." Discharge/Continuing Care - Education Needs Education Needs: Patient Medication, Patient Diagnosis/Disease Process, Patient Coping Skills, Patient Placement options, Patient Community resources, Patient Activities of Daily Living, Patient Health Practices/Safety, Patient Personal Hygiene/Grooming, Patient Aftercare Safety Plan - Discharge Discharge Criteria: Tolerates medication w/o severe side effects, Free of Suicidal thoughts, Normal sleep pattern, Ability to care for self, Reduction of target symptoms Discharge to:: Substance Abuse Rehab - Additional Comments 04/04/18 11:10 Pt seen and discussed in team meeting. Reason for admission reviewed and discussed. Pt reported he was referred to the hospital because "I was hearing voices again and thoughts to hurt myself again." Pt reported feeling depressed and "laughter in my head." Pt reported self-medication with ETOH. Pt reported he consumes a quart of vodka daily and 6-8 bags of heroin daily. Pt reported feeling "tired of being this way" and is requesting to be referred to inpatient substance abuse treatment. Pt reported treatment and medication non-compliance since last admission. Pt reported he was recently discharged from [facility] after being hospitalized involuntarily for 2 months. Pt reported he attempted suicide via stabbing himself in the neck with a pen and was initially hospitalized at [facility] for 2 weeks and then transferred to [place]. Pt reported active suicide ideation but contracted for safety verbalizing that he will call fora nurse if he has a plan or intent to act on his thoughts. Pt's medical and social issues reviewed. Pt reported he is presently staying with a friend in [place], [place]. Pt's medications reviewed. Please refer to MD progress note for additional information. Pt's tx plan reviewed and discussed. Pt reported no collateral information. SW to continue to follow case. - Treatment Team Participation Patient/Family/SO Statement: Bipolar Disorder; Alcohol Use Disorder; Opioid Use Disorder; Patient is psychiatrically stable for referral to substance abuse treatment program -Individual and group therapy -Continue Seroquel -Continue Trazodone and [place] -Li level 0.4 on 04/11/18 -Thiamine and Folate -Psychoeducation -Disposition planning Discussed with Family/SO: No Was Patient/Family/SO present at Treatment Team Meeting: Yes Treatment Plan Review Patient participation: Yes Family/SO/Caregiver participation: No Additional Comments: Pt seen and discussed in team meeting. Pt's progress and bx on the unit reviewed. Pt reported feeling "better, feeling ok." Pt reported feeling more focused and denied active SI and HI. Pt also denied active AVH. Pt reported he last experienced auditory hallucinations 2 days ago. Pt reported "I get up a lot " throughout he night. Pt reported improved appetite. Pt's medications reviewed and discussed. Tx plan reviewed. Pt is agreeable to inpatient rehab treatment and is agreeable with fiction and nonfiction prose writer following up with Lorie Dowd , [facility], and [facility] in [place], [place]. SW to continue to follow case. - Problem Problem 1 Time Initiated: 11:55 Problem 2 Time Initiated: 12:03 Problem 3 Time Initiated: 12:05 Problem 4 Time Initiated: 12:07 Hoplessness/Helplessness Date Initiated: 04/03/18 Time Initiated: 11:59 Progress toward outcomes: improved (Pt reported feeling "better." Pt reported feeling hopeful that he will be admitted to an inpatient alcohol rehab facility. ) Feelings of Worthlessnes Date Initiated: 04/03/18 Time Initiated: 12:04 Progress toward outcomes: improved (Pt reported feeling less depressed since admisison.) - Discharge / Continuing Care Discharge to:: Substance Abuse Rehab Behavioral Health Services: Outpatient therapy, Other (Medication review; structured group therapy) Health Needs: Follow up care/test, Doctor appointments, Medications/Rx, Recreational/Social, Alcohol/Drug treatment
--- NOTE | 2018-04-12 11:17 | PCM.PYCHPN ---
Psychiatric Progress Note - Psychiatric Progress Note Patient seen today, length of contact: Patient evaluated, case discussed with team, chart reviewed Patient Chief Complaint: "I'm feeling better." Problems Identified/Issues Discussed: Patient reports that his mood continues to improve. No current AH/VH/SI/HI. No thoughts of self harm. He is interested in substance abuse rehab at this time. No alcohol withdrawal symptoms. He denies adverse effects to medications. Diagnostic Results: Li 0.4 on 04/11/18 Medication Change: No Medical Record Reviewed: Yes Consults ordered or reviewed: Medicine consult Mental Status Examination - Cognitive Function Orientation: Person, Place, Situation, Time Memory: Intact Attention: WNL Concentration: WNL Association: WNL Fund of Knowledge: WN Decription of patient's judgement and insights: Improving I/J - Mood Mood: Neutral - Affect Affect: Broad - Speech Speech: Appropriate - Formal Thought Process Formal Thought Process: No Impairment Psychotic Thoughts and Behaviors: No AH/VH/paranoia/delusions - Suicidal Ideation Suicidal Ideation: No - Homicidal Ideation Homicidal Ideation: No Goal/Treatment Plan - Goal/Treatment Plan Progress Toward Problem(s) and Goals/Treatment Plan: Bipolar Disorder; Alcohol Use Disorder; Opioid Use Disorder; Patient is psychiatrically stable for referral to substance abuse treatment program -Individual and group therapy -Continue Seroquel -Continue Trazodone and [place] -Li level 0.4 on 04/11/18 -Thiamine and Folate -Psychoeducation -Disposition planning Estimated Date of D/C: 04/15/18
--- NOTE | 2018-04-13 08:17 | PCM.PYCHPN ---
Psychiatric Progress Note - Psychiatric Progress Note Patient seen today, length of contact: Patient evaluated, case discussed with team, chart reviewed Patient Chief Complaint: "I'm feeling better." Problems Identified/Issues Discussed: No new events. Patient reports that his mood continues to improve. No current AH/VH/SI/HI. No thoughts of self harm. He is interested in substance abuse rehab at this time. No alcohol withdrawal symptoms. He denies adverse effects to medications. Diagnostic Results: Li 0.4 on 04/11/18 Medication Change: No Medical Record Reviewed: Yes Consults ordered or reviewed: Medicine consult Mental Status Examination - Cognitive Function Orientation: Person, Place, Situation, Time Memory: Intact Attention: WNL Concentration: WNL Association: WNL Fund of Knowledge: [facility] Decription of patient's judgement and insights: Improving I/J - Mood Mood: Depressed - Affect Affect: Broad - Speech Speech: Appropriate - Formal Thought Process Formal Thought Process: No Impairment Psychotic Thoughts and Behaviors: No AH/VH/paranoia/delusions - Suicidal Ideation Suicidal Ideation: No - Homicidal Ideation Homicidal Ideation: No Goal/Treatment Plan - Goal/Treatment Plan Need for Continued Stay: Discharge may exacerbated symptoms Progress Toward Problem(s) and Goals/Treatment Plan: Bipolar Disorder; Alcohol Use Disorder; Opioid Use Disorder; Patient is psychiatrically stable for referral to substance abuse treatment program -Individual and group therapy -Continue Seroquel -Continue Trazodone and [place] -Li level 0.4 on 04/11/18 -Thiamine and Folate -Psychoeducation -Disposition planning Estimated Date of D/C: 04/15/18
--- NOTE | 2018-04-14 08:38 | PCM.PYCHPN ---
Psychiatric Progress Note - Psychiatric Progress Note Patient seen today, length of contact: Patient evaluated, case discussed with team, chart reviewed Patient Chief Complaint: "I'm feeling better." Problems Identified/Issues Discussed: No new events overnight. Patient reports that his mood continues to improve. No current AH/VH/SI/HI. No thoughts of self harm. He is interested in substance abuse rehab at this time. No alcohol withdrawal symptoms. He denies adverse effects to medications. Diagnostic Results: Li 0.4 on 04/11/18 Medication Change: No Medical Record Reviewed: Yes Consults ordered or reviewed: Medicine consult Mental Status Examination - Cognitive Function Orientation: Person, Place, Situation, Time Memory: Intact Attention: WNL Concentration: WNL Association: WNL Fund of Knowledge: [facility] Decription of patient's judgement and insights: Fair I/J - Mood Mood: Depressed - Affect Affect: Broad - Speech Speech: Appropriate - Formal Thought Process Formal Thought Process: No Impairment Psychotic Thoughts and Behaviors: No AH/VH/paranoia/delusions - Suicidal Ideation Suicidal Ideation: No - Homicidal Ideation Homicidal Ideation: No Goal/Treatment Plan - Goal/Treatment Plan Need for Continued Stay: Discharge may exacerbated symptoms Progress Toward Problem(s) and Goals/Treatment Plan: Bipolar Disorder; Alcohol Use Disorder; Opioid Use Disorder; Patient is psychiatrically stable for referral to substance abuse treatment program -Individual and group therapy -Continue Seroquel -Continue Trazodone and [place] -Li level 0.4 on 04/11/18 -Thiamine and Folate -Psychoeducation -Disposition planning Estimated Date of D/C: 04/15/18
[2018-04-15 05:59] VITALS: BP 107/50; PULSE 60; RESP 19; TEMP 97.1
--- NOTE | 2018-04-15 08:26 | PCM.PYCHDC ---
Mental Status Examination - Mental Status Examination Orientation: Person, Place, Situation, Time Memory: Intact Mood: Neutral Affect: Broad Speech: Appropriate Attention: WNL Concentration: WNL Association: WNL Fund of Knowledge: WNL Formal Thought Process: No Impairment Description of patient's judgement and insight: Fair I/J Psychotic Thoughts and Behaviors: No AH/VH/paranoia/delusions Suicidal Ideation: No Current Homicidal Ideation?: No Discharge Summary - Discharge Note Reason for Hospitalization: HPI: 62 y/o male, w/ h/o bipolar disorder, alcohol use disorder, opioid use disorder, presents w/ worsening depression, anxiety and suicidal ideation in the context of non-compliance with medications and alcohol and opioid abuse. +Hopelessness +sleep/appetite disturbances. Denies AH/VH/ paranoia/delusiosn. Uses 6-7 bags of heroin/day; drinks 1 quart of vodka/day PPHx: Multiple past psychiatric admission and substance abuse rehabs. History of >3 suicide attempts PMHx: Hepatitis C, Arthritis, Chronic pain All: PCN FHx: Mother w/ Alzheimer dz, Father with "mood problems" and Brother with mental retardation. SHx: Father of 3 adults children that have no contact with patient for the past 10 years. No close family as patient stated he have two siblings that also have no contact with patient for many years. Daily ETOH use (1 quart vodka a day). Uses 6-7 bags of heroin/day; Legal charges in the past, such as DWI and possession of stolen property. On SSD. Consultations:: List each consultation separately and include: 1. Reason for request. 2. Findings. 3. Follow-up Consultations: Medicine consult Summary of Hospital Course include:: 1. Description of specific treatment plan utilized for patients during their course of treatmen. 2. Summarize the time- course for resolution of acute symptoms and/or regressed behaviors. 3. Describe issues identified and worked on during hospitalization. 4. Describe medication utilized. 5. Describe medical problems identified and treated. 6. Reassessment of suicide risk Summary of Hospital Course: Patient was admitted to the psychiatry unit. Individual and group therapy were provided. Patient was stabilized on [place], Seroquel and Trazodone. No acute depression/anxiety/AH/VH/paranoia/delusions/SI/HI. He is currently psychiatrically stable for discharge with outpatient follow-up. Psychoeducation provided on the dangers of substance abuse. No ETOH withdrawal symptoms during the admission. - Diagnosis (1) Bipolar disorder Current Visit: Yes Status: Chronic (2) Alcohol use disorder, severe, dependence Current Visit: No Status: Chronic Priority: High (3) Opioid use disorder Current Visit: Yes Status: Chronic - Final Diagnosis (DSM 5) Condition upon Discharge: FAIR DSM 5: Bipolar Disorder; Alcohol Use Disorder; Opioid Use Disorder Disposition: HOME/ ROUTINE Follow-up Treatment Plan: Bipolar Disorder; Alcohol Use Disorder; Opioid Use Disorder -Individual and group therapy -Continue Seroquel 100 mg PO AM/ 250 mg PO HS -Continue Trazodone 100 mg PO HS -Continue [place] 300 mg PO BID; Li level 0.4 on 04/11/18 -Thiamine and Folate -Psychoeducation Prescriptions/Medication Reconciliation: Gabapentin [Neurontin] 300 mg PO BID #60 cap [place] Carbonate [Tolley Carbonate 300MG] 300 mg PO BID #60 cap QUEtiapine [SEROquel] 100 mg PO ASDIR #90 tab Quetiapine Fumarate [Seroquel] 50 mg PO HS #30 tab traZODone [Desyrel] 100 mg PO HS #30 tab - Smoking Cessation Smoking Cessation Medication prescribed: No Reason for not providing: Not indicated - Antipsychotic Medications Pt discharged on 2 or more routine antipsychotic medications: No
== END 2018-04-15 10:15 | disposition home or self-care (01) | DRG 885 ==
LOC: H.ER 23:44 → H.ERHOLD 04-03 06:25 → H.STEP 04-03 10:02
PROVIDERS: ADMIT Psychiatry & Neurology Psychiatry; ATTEND Psychiatry & Neurology Psychiatry
PROC: GZ51ZZZ Individual Psychotherapy, Behavioral (ICD-10-PCS; 2018-04-03)
PROC: GZHZZZZ Group Psychotherapy (ICD-10-PCS; principal; 2018-04-05)
DX: F31.9 Bipolar disorder, unspecified (principal); R45.851 Suicidal ideations; F11.23 Opioid dependence with withdrawal; F43.10 Post-traumatic stress disorder, unspecified; K59.00 Constipation, unspecified; N40.0 Benign prostatic hyperplasia without lower urinary tract symptoms; Z81.0 Family history of intellectual disabilities; Z82.0 Family history of epilepsy and other diseases of the nervous system; Z86.73 Personal history of transient ischemic attack (TIA), and cerebral infarction without residual deficits; Z87.01 Personal history of pneumonia (recurrent); Z90.49 Acquired absence of other specified parts of digestive tract; Z91.14 Patient's other noncompliance with medication regimen; Z91.5 Personal history of self-harm; Z86.19 Personal history of other infectious and parasitic diseases; G89.29 Other chronic pain; M19.90 Unspecified osteoarthritis, unspecified site; R56.9 Unspecified convulsions; Z79.899 Other long term (current) drug therapy; E78.00 Pure hypercholesterolemia, unspecified; F10.20 Alcohol dependence, uncomplicated; F20.9 Schizophrenia, unspecified; Z88.0 Allergy status to penicillin

== ENCOUNTER 2018-08-03 18:48 | Inpatient (IN) | payer MEDICARE ==
[2018-08-03 18:48] VITALS: BMI 24.1
[2018-08-03 20:24] LABS: ALB/GLOB RATIO 0.9 (1.0-2.1); ALBUMIN 3.3 g/dL (3.5-5.0); ALT/SGPT 237 U/L (21-72); AST/SGOT 285 U/L (17-59); BLOOD UREA NITROGEN 6 mg/dl (9-20); CALCIUM 8.2 mg/dL (8.4-10.2); GFR NON-AFRICAN AMERICAN > 60
[2018-08-03 20:28] LABS: BASO # 0.1 K/uL (0.0-0.2); BASO % 1.2 % (0.0-2.0); EOS # 0.2 K/uL (0.0-0.7); EOS % 4.3 % (0.0-4.0); HEMOGLOBIN 11.2 g/dL (12.0-18.0); LYMPH # 1.4 K/uL (1.0-4.3); LYMPH % 30.7 % (20.0-40.0); MEAN CELL VOLUME 94.7 fl (80.0-94.0); MEAN CORPUSCULAR HEMOGLOBIN 31.3 pg (27.0-31.0); MEAN PLATELET VOLUME 7.8 fl (7.2-11.7); MONO # 0.7 K/uL (0.0-0.8); NEUT # 2.3 K/uL (1.8-7.0); NEUT % 49.8 % (50.0-75.0); NRBC % 0.2 % (0.0-0.0); RBC 3.58 Mil/uL (4.40-5.90); WHITE BLOOD COUNT 4.6 K/uL (4.8-10.8)
[2018-08-03 21:10] LABS: ACETAMINOPHEN < 10.0 ug/ml (10.0-30.0); SALICYLATE < 1.0 mg/dl
[2018-08-03] MEDS ORDERED: Potassium Chloride 20 mEq ER Tab PO STA (21:17)
--- NOTE | 2018-08-03 21:26 | ED PDOC ---
HPI: Psych/Substance Abuse Time Seen by Provider: 08/03/18 19:00 Chief Complaint (Nursing): Psychiatric Evaluation Chief Complaint (Provider): suicidal ideation depression Onset/Duration Of Symptoms: Gradual (3 weeks) Additional Complaint(s): Non compliant with meds for 3 week Feeling like he wants to cut himself with a knife and hearing voices Admits to alcohol PMD None Past Medical History Reviewed: Historical Data, Nursing Documentation, Vital Signs Vital Signs: Last Vital Signs Temp 98.2 F 08/03/18 18:55 Pulse 92 H 08/03/18 18:55 Resp 16 08/03/18 18:55 BP 131/73 08/03/18 18:55 Pulse Ox 97 08/03/18 18:55 - Medical History PMH: Anxiety, Arthritis, Benign Prostatic Hyperplasia, Bipolar Disorder, CVA, Depression, Hypercholesterolemia, Paranoia, Pneumonia, Post Traumatic Stress Disorder, Seizures Denies: Asthma, Bronchitis, COPD, Diabetes, Emphysema, Hepatitis, HIV, HTN, Pulmonary Embolism, Chronic Kidney Disease, Sexually Transmitted Disease, Sleep Apnea Comment Only: Schizophrenia (per old chart but pt denies) - Surgical History Surgical History: Appendectomy, Endoscopy, Tonsillectomy - Family History Family History: States: Unknown Family Hx - Social History Current smoker - smoking cessation education provided: Yes Alcohol: > 2 Drinks/Day Drugs: Denies - Immunization History Hx Tetanus Toxoid Vaccination: Yes Hx Influenza Vaccination: Yes Hx Pneumococcal Vaccination: No - Home Medications Home Medications: Ambulatory Orders Medication Instructions Recorded RX: Folic Acid 1 mg PO DAILY tab 04/14/18 RX: QUEtiapine [Seroquel] 100 mg PO ASDIR #90 tab 04/14/18 RX: Quetiapine Fumarate [Seroquel] 50 mg PO HS #30 tab 04/14/18 RX: traZODone [Desyrel] 100 mg PO HS #30 tab 04/14/18 Pantoprazole Sodium [Protonix] 40 mg PO BID #60 ect 06/08/18 - Allergies Allergies/Adverse Reactions: Allergies Allergy/AdvReac Type Severity Reaction Status Date / Time Penicillins Allergy convulsions Verified 08/03/18 18:55 Review of Systems ROS Statement: Except As Marked, All Systems Reviewed And Found Negative (and as per HPI) Constitutional: Positive for: Chills Psych: Positive for: Anxiety, Depression, Psychosis, Suicidal ideation Physical Exam - Reviewed Nursing Documentation Reviewed: Yes Vital Signs Reviewed: Yes - Physical Exam Appears: Positive for: No Acute Distress Head Exam: Positive for: ATRAUMATIC, NORMOCEPHALIC Skin: Positive for: Warm, Dry Eye Exam: Positive for: EOMI, PERRL ENT: Negative for: Pharyngeal Erythema, Tonsillar Exudate Neck: Positive for: Painless ROM, Supple Cardiovascular/Chest: Positive for: Regular Rate, Rhythm. Negative for: Murmur Respiratory: Positive for: Normal Breath Sounds. Negative for: Respiratory Distress Gastrointestinal/Abdominal: Positive for: Soft. Negative for: Tenderness Back: Positive for: Normal Inspection. Negative for: Decreased ROM Extremity: Positive for: Normal ROM. Negative for: Deformity Lymphatic: Negative for: Adenopathy Neurologic/Psych: Positive for: Alert. Negative for: Motor/Sensory Deficits - Laboratory Results Result Diagrams: 08/03/18 20:10 08/04/18 06:01 - ECG ECG Rhythm: Positive for: Normal QRS, Normal ST Segment O2 Sat by Pulse Oximetry: 97 - Radiology X-Ray: Interpreted by Me X-Ray Interpretation: No Acute Disease - Progress ED Course And Treament: Labs demonstrated hypokalemia and supplementation ordered. Also demonstrated stable anemia (c/w previous) Pt is medically stable for psychiatric admission, pending Crisis evaluation Disposition - Clinical Impression Clinical Impression: Depression - Disposition Disposition: Transfer of Care Disposition Time: 23:00 Condition: STABLE Patient Signed Over To: Hany Aquino Handoff Comments: Pending Crisis evaluation and deana ER dispsition
--- NOTE | 2018-08-04 00:36 | ED PDOC ---
- Laboratory Results Result Diagrams: 08/03/18 20:10 08/04/18 06:01 - ECG O2 Sat by Pulse Oximetry: 97 (RA) Pulse Ox Interpretation: Normal Medical Decision Making Medical Decision Making: Time: 23:00 Patient care endorse form Dr. Asencio to me pending reevaluation by crisis. Time: 04:45 Patient will be admitted to [facility] with diagnosis of depression by Dr. Sanz. 645AM Patient's K is normal. Medically cleared. ---- Scribe Attestation: Documented by Chaparro Valdez acting as a scribe for Hany Aquino MD. Provider Scribe Attestation: All medical record entries made by the Scribe were at my direction and personally dictated by me. I have reviewed the chart and agree that the record accurately reflects my personal performance of the history, physical exam, medical decision making, and the department course for this patient. I have also personally directed, reviewed, and agree with the discharge instructions and disposition. Disposition - Clinical Impression Clinical Impression: Depression - POA Present On Arrival: None - Disposition Disposition: Admitted as In-Patient Disposition Time: 04:45 Condition: FAIR
[2018-08-04 06:06] LABS: BARBITURATES, UR NEGATIVE (NEGATIVE); BENZODIAZEPINES, UR NEGATIVE (NEGATIVE); OPIATES, UR POSITIVE (NEGATIVE); PHENCYCLIDINE, UR NEGATIVE (NEGATIVE)
[2018-08-04] MEDS ORDERED: Alum-Mag Hydrox-Simethicone Susp (30 mL) PO PRN (07:46)
[2018-08-04] MEDS ORDERED: Magnesium Hydroxide Susp 30 ml UD PO PRN (07:46)
[2018-08-04] MEDS ORDERED: DiphenhydrAMINE 50 mg/ml Inj IM PRN (07:46)
--- NOTE | 2018-08-04 08:06 | PCM.PSYCH ---
Initial Psychiatric Evaluation - Initial Psychiatric Evaluation Type of Admission: Voluntary Legal Status: Capacity Chief Complaint (in patient's own words): "I wanted to cut my throat." Patient's Reaction to Hospitalization: HPI: 62 y/o male, w/ h/o bipolar disorder, alcohol use disorder, opioid use disorder, presents w/ worsening depression, anxiety and suicidal ideation in the context of non-compliance with medications and alcohol (BAL 170, drinks 1 quart vodka/day) and opioid abuse (4-5 bags of heroin/day). +Hopelessness +sleep/appetite disturbances. +AH of laughter. Denies AH/VH/paranoia/delusiosn. PPHx: Multiple past psychiatric admission and substance abuse rehabs. History of >3 suicide attempts PMHx: Hepatitis C, Arthritis, Chronic pain All: PCN FHx: Mother w/ Alzheimer dz, Father with "mood problems" and Brother with mental retardation. SHx: Father of 3 adults children that have no contact with patient for the past 10 years. No close family as patient stated he have two siblings that also have no contact with patient for many years. Daily ETOH use (1 quart vodka a day). Uses 4-5 bags of heroin/day; Legal charges in the past, such as DWI and possession of stolen property. On SSD. No cig use. Current Medications: Active Medications Generic Name Dose Route Start Last Admin Trade Name Freq PRN Reason Stop Dose Admin Acetaminophen 650 mg 08/04/18 07:46 Tylenol 325mg Tab PO Q4 PRN Pain, moderate (4-7) Al Hydrox/Mg Hydrox/Simethicone 30 ml 08/04/18 07:46 Maalox Plus 30 Ml PO Q4 PRN Dyspepsia Clonidine HCl 0.1 mg 08/04/18 09:00 Catapres PO 08/07/18 01:00 Q8 REAL Diphenhydramine HCl 50 mg 08/04/18 07:46 Benadryl IM Q6 PRN Extrapyramidal S/S Unable PO Diphenhydramine HCl 50 mg 08/04/18 07:46 Benadryl PO Q6 PRN Extrapyramidal Symptoms Haloperidol 5 mg 08/04/18 07:46 Haldol PO Q4 PRN Agitation Haloperidol Lactate 5 mg 08/04/18 07:46 Haldol IM Q4 PRN Agitation, Unable to Take PO Loperamide HCl 2 mg 08/04/18 08:04 Imodium PO Q6 PRN Diarrhea Lorazepam 2 mg 08/04/18 07:46 Ativan IM Q4 PRN Anxiety/Agitation,Unable PO Lorazepam 1 mg 08/04/18 09:00 Ativan PO Q8 REAL Magnesium Hydroxide 30 ml 08/04/18 07:46 Milk Of Magnesia PO HS PRN Constipation Ondansetron HCl 4 mg 08/04/18 08:04 Zofran Tab PO Q6 PRN Nausea/Vomiting Past Psychiatric History - Past Psychiatric History Previous Treatment History: Inpatient Pertinent Medical Hx (Current Medical&Sleep Prob, Allergies): Allergies Allergy/AdvReac Type Severity Reaction Status Date / Time Penicillins Allergy convulsions Verified 08/03/18 18:55 Folic Acid 1 mg PO DAILY tab 04/14/18 QUEtiapine [Seroquel] 100 mg PO ASDIR #90 tab 04/14/18 Quetiapine Fumarate [Seroquel] 50 mg PO HS #30 tab 04/14/18 traZODone [Desyrel] 100 mg PO HS #30 tab 04/14/18 Pantoprazole Sodium [Protonix] 40 mg PO BID #60 ect 06/08/18 Review of Systems - Psychiatric Psychiatric: As Per HPI, Abnormal Sleep Pattern, Anxiety, Auditory Hallucinations, Behavioral Changes, Change in Appetite, Depression, Difficulty Concentrating, Hallucinations, Hopelessness, Mood Swings, Suicidal Ideation Mental Status Examination - Personal Presentation Personal Presentation: Looks older than stated age - Affect Affect: Constricted, Depressed - Motor Activity Motor Activity: Calm - Reliability in Providing Information Reliability in Providing Information: Fair - Speech Speech: Organized, Coherent - Mood Mood: Depressed, Anxious - Formal Thought Process Formal Thought Process: Hallucinations Additional comments: +AH of laughter - Hallucinations/Delusions Hallucinations: Auditory - Obsessions/Compulsions Obsessions: No Compulsions: No - Cognitive Functions Orientation: Person, Place, Situation, Time Sensorium: Alert Attention/Concentration: Attentive Estimate of Intelligence: Average Judgement: Intact, as evidence by: Insight regarding need for hospitalization Memory: Recent intact, as evidence by: Ability to recall events of the day, Remote intact, as evidenced by: Abilit to recall sig. life events, Remote intact, as evidenced by: Ability to recall historical events - Risk Risk: Suicidal, Diminished functioning - Strength & Assets Inventory Strength & Assets Inventory: Cooperative DSM 5 DX - DSM 5 DSM 5 Diagnosis: Bipolar Disorder w/ Psychotic Features; Opioid Use Disorder; Alcohol Use Disorder - Recommended/Plan of Treatment Treatment Recommendations and Plan of Treatment: Bipolar Disorder w/ Psychotic Features; Opioid Use Disorder; Alcohol Use Disorder -Admit to psychiatry unit -Individual and group therapy -Ativan to prevent ETOH withdrawal -Thiamine, Folate -Medicine consult -PRNs for opioid withdrawal -Restart [place], Seroquel and Trazodone -Psychoeducation -Disposition planning Projected ELOS: 5-10 days Discharge Plan and Discharge Criteria: Discharge when patient is psychiatrically stable - Smoking Cessation Smoking Cessation Initiated: No Reason for not providing: Not indicated, pt does not smoke
[2018-08-04 09:22] VITALS: O2SAT 97
--- NOTE | 2018-08-04 10:09 | RAD ---
PROCEDURE: Bilateral hand radiographs. HISTORY: RIGHT hand swelling COMPARISON: None. FINDINGS: BONES: Right Hand: No fracture Left Hand: No fracture JOINTS: Right Hand: Mild osteoarthritis at CMC 1, MCP 1 and IP 1. Remaining joint spaces are preserved. No articular erosions. Left Hand: Mild osteoarthritis MCP 1. Remaining joint spaces are preserved. No articular erosions. SOFT TISSUES: Right Hand: Normal. Left Hand: Normal. OTHER FINDINGS: None. IMPRESSION: Osteoarthritis of 1st digit bilaterally as described.
--- NOTE | 2018-08-04 10:10 | RAD ---
Date of service: 08/03/2018 PROCEDURE: CHEST RADIOGRAPH, 1 VIEW HISTORY: psych eval COMPARISON: 10/06/2017 FINDINGS: LUNGS: Clear. PLEURA: No pneumothorax or pleural fluid seen. CARDIOVASCULAR: Normal. OSSEOUS STRUCTURES: No significant abnormalities. VISUALIZED UPPER ABDOMEN: Normal. OTHER FINDINGS: None. IMPRESSION: No active disease.
--- NOTE | 2018-08-04 11:29 | CARD ---
APPROVED REPORT Date of service: 08/03/2018 EKG Measurement Heart [id number] <Conclusion> Normal sinus rhythm with premature atrial complexes Otherwise normal ECG
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
--- NOTE | 2018-08-04 18:34 | CP.PCM.CON ---
History of Present Illness - History of Present Illness History of Present Illness: 62 yo male with history of Heroin and Alcohol Abuse and Hep C admitted to psyche unit because of suicidal ideation. Review of Systems - Review of Systems All systems: reviewed and no additional remarkable complaints except (aside from those mentioned above, 12 point system review were negative by me) Past Patient History - Infectious Disease Hx of Infectious Diseases: None - Tetanus Immunizations Tetanus Immunization: Unknown - Past Medical History & Family History Past Medical History?: Yes - Past Social History Smoking Status: Never Smoked Chewing Tobacco Use: No Cigar Use: No Alcohol: > 2 Drinks/Day Drugs: Opiates (takes 4 bags of Heroin a day, last shot was yesterday) - CARDIAC Hx Cardiac Disorders: Yes Hx Circulatory Problems: Yes (cva) Hx Hypercholesterolemia: Yes Hx Hypertension: No - PULMONARY Hx Respiratory Disorders: Yes Hx Asthma: No Hx Bronchitis: No Hx Chronic Obstructive Pulmonary Disease (COPD): No Hx Emphysema: No Hx Pneumonia: Yes Hx Pulmonary Embolism: No Hx Sleep Apnea: No - NEUROLOGICAL HX Cerebrovascular Accident: Yes Hx Seizures: Yes (etoh abuse) - HEENT Hx HEENT Problems: No - RENAL Hx Chronic Kidney Disease: No - ENDOCRINE/METABOLIC Hx Endocrine Disorders: No - HEMATOLOGICAL/ONCOLOGICAL Hx Blood Disorders: Yes Hx Hepatitis C: Yes Hx Human Immunodeficiency Virus (HIV): No - INTEGUMENTARY Hx Dermatological Problems: No - MUSCULOSKELETAL/RHEUMATOLOGICAL Hx Musculoskeletal Disorders: Yes Hx Arthritis: Yes Hx Falls: No - GASTROINTESTINAL Hx Gastrointestinal Disorders: Yes Other/Comment: hep c - GENITOURINARY/GYNECOLOGICAL Hx Genitourinary Disorders: Yes Hx Sexually Transmitted Disorders: No Hx Urinary Tract Infection: Yes Other/Comment: BPH - PSYCHIATRIC Hx Anxiety: Yes Hx Bipolar Disorder: Yes Hx Depression: Yes Hx Substance Use: Yes - SURGICAL HISTORY Hx Surgeries: Yes Hx Appendectomy: Yes Hx Tonsillectomy: Yes - ANESTHESIA Hx Anesthesia: Yes Hx Anesthesia Reactions: No Hx Malignant Hyperthermia: No Meds Allergies/Adverse Reactions: Allergies Allergy/AdvReac Type Severity Reaction Status Date / Time Penicillins Allergy convulsions Verified 08/03/18 18:55 - Medications Medications: Current Medications Acetaminophen (Tylenol 325mg Tab) 650 mg PO Q4 PRN PRN Reason: Pain, moderate (4-7) Al Hydrox/Mg Hydrox/Simethicone (Maalox Plus 30 Ml) 30 ml PO Q4 PRN PRN Reason: Dyspepsia Clonidine HCl (Catapres) 0.1 mg PO Q8@0530,1330,2130 [facility] Last Admin: 08/04/18 14:06 Dose: Not Given Diphenhydramine HCl (Benadryl) 50 mg IM Q6 PRN PRN Reason: Extrapyramidal S/S Unable PO Diphenhydramine HCl (Benadryl) 50 mg PO Q6 PRN PRN Reason: Extrapyramidal Symptoms Folic Acid (Folic Acid) 1 mg PO DAILY [facility] Last Admin: 08/04/18 13:25 Dose: 1 mg Haloperidol (Haldol) 5 mg PO Q4 PRN PRN Reason: Agitation Haloperidol Lactate (Haldol) 5 mg IM Q4 PRN PRN Reason: Agitation, Unable to Take PO Ibuprofen (Motrin Tab) 600 mg PO Q6 PRN PRN Reason: Pain, moderate (4-7) House Carbonate (House Carbonate 300mg) 300 mg PO BID [facility] Last Admin: 08/04/18 17:09 Dose: 300 mg Loperamide HCl (Imodium) 2 mg PO Q6 PRN PRN Reason: Diarrhea Lorazepam (Ativan) 2 mg IM Q4 PRN PRN Reason: Anxiety/Agitation,Unable PO Lorazepam (Ativan) 1 mg PO Q8 [facility] Last Admin: 08/04/18 17:09 Dose: 1 mg Lorazepam (Ativan) 1 mg PO Q4 PRN PRN Reason: Withdrawal symptoms Magnesium Hydroxide (Milk Of Magnesia) 30 ml PO HS PRN PRN Reason: Constipation Ondansetron HCl (Zofran Tab) 4 mg PO Q6 PRN PRN Reason: Nausea/Vomiting Quetiapine Fumarate (Seroquel) 100 mg PO [facility] Thiamine HCl (Vitamin B1 Tab) 100 mg PO DAILY [facility] Last Admin: 08/04/18 13:25 Dose: 100 mg Trazodone HCl (Desyrel) 100 mg PO [facility] Physical Exam - Constitutional Appears: No Acute Distress - Head Exam Head Exam: ATRAUMATIC - Eye Exam Eye Exam: absent: Scleral icterus - ENT Exam ENT Exam: Mucous Membranes Moist - Neck Exam Neck exam: Negative for: Meningismus - Respiratory Exam Respiratory Exam: absent: Rales, Rhonchi, Wheezes, Respiratory Distress - Cardiovascular Exam Cardiovascular Exam: REGULAR RHYTHM, +S1, +S2 - GI/Abdominal Exam GI & Abdominal Exam: Soft. absent: Tenderness - Rectal Exam Rectal Exam: Deferred - Neurological Exam Neurological exam: Alert, Oriented x3 - Psychiatric Exam Psychiatric exam: Normal Affect - Skin Skin Exam: Dry, Intact Results - Vital Signs Recent Vital Signs: Last Vital Signs Temp 98.4 F 08/04/18 16:05 Pulse 71 08/04/18 16:05 Resp 18 08/04/18 16:05 BP 149/87 08/04/18 16:05 Pulse Ox 97 08/04/18 09:22 - Labs Result Diagrams: 08/03/18 20:10 08/04/18 06:01 Labs: Laboratory Results - last 24 hr 08/03/18 08/03/18 08/03/18 20:10 20:10 20:10 WBC 4.6 L RBC 3.58 L Hgb 11.2 L D Hct 33.9 L MCV 94.7 H D MCH 31.3 H MCHC 33.0 RDW 16.0 H Plt Count 198 MPV 7.8 Neut % (Auto) 49.8 L Lymph % (Auto) 30.7 [place] % (Auto) 14.0 H Eos % (Auto) 4.3 H Baso % (Auto) 1.2 Neut # (Auto) 2.3 Lymph # (Auto) 1.4 [place] # (Auto) 0.7 Eos # (Auto) 0.2 Baso # (Auto) 0.1 Sodium 142 Potassium 2.8 L Chloride 109 H Carbon Dioxide 25 Anion Gap 11 BUN 6 L Creatinine 0.6 L Est GFR ( Amer) > 60 Est GFR (Non-Af Amer) > 60 Random Glucose 125 H Calcium 8.2 L Total Bilirubin 0.3 AST 285 H D ALT 237 H D Alkaline Phosphatase 134 H D Total Protein 6.9 Albumin 3.3 L Globulin 3.7 Albumin/Globulin Ratio 0.9 L Salicylates < 1.0 Urine Opiates Screen Urine Methadone Screen Acetaminophen < 10.0 L Ur Barbiturates Screen Ur Phencyclidine Scrn Ur Amphetamines Screen U Benzodiazepines Scrn U Oth Cocaine Metabols U Cannabinoids Screen Alcohol, Quantitative 170 H 08/04/18 08/04/18 04:49 06:01 WBC RBC Hgb Hct MCV MCH MCHC RDW Plt Count MPV Neut % (Auto) Lymph % (Auto) [place] % (Auto) Eos % (Auto) Baso % (Auto) Neut # (Auto) Lymph # (Auto) [place] # (Auto) Eos # (Auto) Baso # (Auto) Sodium Potassium 3.8 Chloride Carbon Dioxide Anion Gap BUN Creatinine Est GFR ( Amer) Est GFR (Non-Af Amer) Random Glucose Calcium Total Bilirubin AST ALT Alkaline Phosphatase Total Protein Albumin Globulin Albumin/Globulin Ratio Salicylates Urine Opiates Screen Positive H Urine Methadone Screen Negative Acetaminophen Ur Barbiturates Screen Negative Ur Phencyclidine Scrn Negative Ur Amphetamines Screen Negative U Benzodiazepines Scrn Negative U Oth Cocaine Metabols Negative U Cannabinoids Screen Negative Alcohol, Quantitative Assessment & Plan (1) Multiple substance abuse Status: Chronic Comment: psyche is managing (2) Suicidal ideation Status: Acute Comment: psyche is managing
--- NOTE | 2018-08-05 08:58 | PCM.PYCHPN ---
Psychiatric Progress Note - Psychiatric Progress Note Patient seen today, length of contact: Pt evaluated, case discussed w/ team, chart reviewed Patient Chief Complaint: "I wanted to cut my throat." Problems Identified/Issues Discussed: Patient continues to feel depressed w/ intermittent suicidal ideation and AH of laughter. He has opioid withdrawal symptoms and feels tremulous at times. No adverse effects to medications reported. Medication Change: Yes (Increase Seroquel) Medical Record Reviewed: Yes Consults ordered or reviewed: Medicine consult Mental Status Examination - Cognitive Function Orientation: Person, Place, Situation, Time Memory: Intact Attention: WNL Concentration: WNL Association: WNL Fund of Knowledge: [facility] Decription of patient's judgement and insights: Improving I/J; psychoeducation provided on the dangers of alcohol and substance abuse - Mood Mood: Depressed, Anxious - Affect Affect: Constricted, Depressed - Speech Speech: Appropriate - Formal Thought Process Formal Thought Process: Hallucinations Psychotic Thoughts and Behaviors: +AH of laughter - Suicidal Ideation Suicidal Ideation: Yes Plan: Intermittent SI; no current plan/intent - Homicidal Ideation Homicidal Ideation: No Goal/Treatment Plan - Goal/Treatment Plan Need for Continued Stay: Remain at risks for inpatient hospitalization, Severe depression anxiety, Discharge may exacerbated symptoms Progress Toward Problem(s) and Goals/Treatment Plan: Bipolar Disorder w/ Psychotic Features; Opioid Use Disorder; Alcohol Use Disorder -Individual and group therapy -Ativan to prevent ETOH withdrawal -Thiamine, Folate -Medicine consult -PRNs for opioid withdrawal -Continue [place] and Trazodone -Increase Seroquel -Psychoeducation -Disposition planning Estimated Date of D/C: 08/10/18
--- NOTE | 2018-08-06 12:33 | PCM.PYCHPN ---
Psychiatric Progress Note - Psychiatric Progress Note Patient seen today, length of contact: Pt evaluated, case discussed w/ team, chart reviewed Patient Chief Complaint: feeling sick like withrawals aches pains Problems Identified/Issues Discussed: alteration in mood, withdrawals opioids/etoh Medical Problems: per chart Diagnostic Results: per psychiatry per medicine per nursing per drug abuse social worker per recreational therapy DSM 5 Symptoms Update: alteration in mood alteration in physiology withdrawals opioids /etoh Medication Change: No Medical Record Reviewed: Yes Consults ordered or reviewed: pt being followed by hospitalist Mental Status Examination - Cognitive Function Orientation: Person, Place, Situation, Time Memory: Intact Attention: WNL Concentration: WNL Association: [facility] Fund of Knowledge: [facility] Decription of patient's judgement and insights: impaired - Mood Mood: Depressed, Anxious - Affect Affect: Constricted, Depressed - Speech Speech: Appropriate - Formal Thought Process Formal Thought Process: Hallucinations - Suicidal Ideation Suicidal Ideation: Yes - Homicidal Ideation Homicidal Ideation: No Goal/Treatment Plan - Goal/Treatment Plan Need for Continued Stay: Remain at risks for inpatient hospitalization, Severe depression anxiety, Discharge may exacerbated symptoms Progress Toward Problem(s) and Goals/Treatment Plan: inpt milieu adjust meds per clinical status pt had seroquel increased yesterday team to continue to assess discharge planning in progress Estimated Date of D/C: 08/10/18 - Smoking Cessation Smoking Cessation Initiated: No Reason for not providing: pt defers
--- NOTE | 2018-08-07 09:49 | PCM.PYCHPN ---
Psychiatric Progress Note - Psychiatric Progress Note Patient seen today, length of contact: Pt evaluated, case discussed w/ team, chart reviewed Patient Chief Complaint: I still hear voices but they are not as strong Problems Identified/Issues Discussed: pt evaluated , seen in bed, continues to report depressed mood , reported partial clearing of the auditory hallucinations denied command hallucinations, denied current S/H I DSM 5 Symptoms Update: BIPOLAR DISORDER ALCOHOL ABUSE OPIATE ABUSE Medication Change: No Medical Record Reviewed: Yes Mental Status Examination - Cognitive Function Orientation: Person, Place, Situation, Time Memory: Intact Attention: WNL Concentration: WNL Association: WNL Fund of Knowledge: WNL - Mood Mood: Depressed, Anxious - Affect Affect: Constricted, Depressed - Speech Speech: Appropriate - Formal Thought Process Formal Thought Process: Hallucinations - Suicidal Ideation Suicidal Ideation: No - Homicidal Ideation Homicidal Ideation: No Goal/Treatment Plan - Goal/Treatment Plan Need for Continued Stay: Remain at risks for inpatient hospitalization, Severe depression anxiety, Discharge may exacerbated symptoms Progress Toward Problem(s) and Goals/Treatment Plan: continue current medications motivational, group and supportive therapy Estimated Date of D/C: 08/10/18
--- NOTE | 2018-08-08 08:37 | PCM.PYCHPN ---
Psychiatric Progress Note - Psychiatric Progress Note Patient seen today, length of contact: Pt evaluated, case discussed w/ team, chart reviewed Patient Chief Complaint: "I want to jump off a building." Problems Identified/Issues Discussed: Patient continues to report feeling depressed w/ active suicidal ideation to jump off a building if he were to be discharged from the hospital. He feels helpless and guilty about ruining his family. He continues to reports i ntermittent AH of laughter but states that it is less frequent. No adverse effects to medications. We discussed that the Ativan will be tapered. No current signs/symptoms of ETOH withdrawal. Medication Change: Yes (Taper Ativan) Medical Record Reviewed: Yes Consults ordered or reviewed: Medicine consult Mental Status Examination - Cognitive Function Orientation: Person, Place, Situation, Time Memory: Intact Attention: WNL Concentration: WNL Association: WNL Fund of Knowledge: WN Decription of patient's judgement and insights: Poor I/J - Mood Mood: Depressed, Anxious - Affect Affect: Constricted, Depressed - Speech Speech: Appropriate - Formal Thought Process Formal Thought Process: Hallucinations Psychotic Thoughts and Behaviors: +AH of laughter - Suicidal Ideation Suicidal Ideation: Yes Plan: Plan to jump off a building - Homicidal Ideation Homicidal Ideation: No Goal/Treatment Plan - Goal/Treatment Plan Need for Continued Stay: Remain at risks for inpatient hospitalization, Severe depression anxiety, Discharge may exacerbated symptoms Progress Toward Problem(s) and Goals/Treatment Plan: Bipolar Disorder w/ Psychotic Features; Opioid Use Disorder; Alcohol Use Disorder -Individual and group therapy -Taper Ativan; no current signs/symptoms of ETOH withdrawal -Thiamine, Folate -Medicine consult -PRNs for opioid withdrawal -Continue [place], Seroquel and Trazodone -Psychoeducation -Disposition planning Estimated Date of D/C: 08/12/18
--- NOTE | 2018-08-09 10:40 | PCM.PYCHPN ---
Psychiatric Progress Note - Psychiatric Progress Note Patient seen today, length of contact: Pt evaluated, case discussed w/ team, chart reviewed Patient Chief Complaint: "I want to jump off a building." Problems Identified/Issues Discussed: Patient had a verbal argument with another patient this morning, but is currently calm. Patient continues to report feeling depressed w/ active suicidal ideation to jump off a building if he were to be discharged from the hospital. He continues to feel hopeless, helpless and guilty about ruining his family. He continues to reports intermittent AH of laughter but states that it is less frequent. No adverse effects to medications. No current signs/symptoms of ETOH withdrawal. Medication Change: Yes (Increase [place]) Medical Record Reviewed: Yes Consults ordered or reviewed: Medicine consult Mental Status Examination - Cognitive Function Orientation: Person, Place, Situation, Time Memory: Intact Attention: WNL Concentration: WNL Association: WNL Fund of Knowledge: [facility] Decription of patient's judgement and insights: Poor I/J - Mood Mood: Depressed, Anxious - Affect Affect: Constricted, Depressed - Speech Speech: Appropriate - Formal Thought Process Formal Thought Process: Hallucinations Psychotic Thoughts and Behaviors: +Intermittent AH of laughter - Suicidal Ideation Suicidal Ideation: Yes Plan: Plan to jump off a building - Homicidal Ideation Homicidal Ideation: No Goal/Treatment Plan - Goal/Treatment Plan Need for Continued Stay: Remain at risks for inpatient hospitalization, Severe depression anxiety, Discharge may exacerbated symptoms Progress Toward Problem(s) and Goals/Treatment Plan: Bipolar Disorder w/ Psychotic Features; Opioid Use Disorder; Alcohol Use Disorder -Individual and group therapy -Continue Ativan; no current signs/symptoms of ETOH withdrawal -Thiamine, Folate -Medicine consult -PRNs for opioid withdrawal -Increase [place] -Continue Seroquel and Trazodone -Psychoeducation -Disposition planning Estimated Date of D/C: 08/15/18
--- NOTE | 2018-08-10 08:06 | PCM.PYCHPN ---
Psychiatric Progress Note - Psychiatric Progress Note Patient seen today, length of contact: Pt evaluated, case discussed w/ team, chart reviewed Patient Chief Complaint: "I want to jump off a building." Problems Identified/Issues Discussed: Patient continues to report feeling depressed w/ active suicidal ideation to jump off a building if he were to be discharged from the hospital. He continues to feel hopeless, helpless and guilty about ruining his family. He reports less AH of laughter. No adverse effects to medications. No current signs/symptoms of ETOH withdrawal. Medication Change: Yes (Taper Ativan, Increase Seroquel) Medical Record Reviewed: Yes Consults ordered or reviewed: Medicine consult Mental Status Examination - Cognitive Function Orientation: Person, Place, Situation, Time Memory: Intact Attention: WNL Concentration: WNL Association: WNL Fund of Knowledge: [facility] Decription of patient's judgement and insights: Poor I/J - Mood Mood: Depressed, Anxious - Affect Affect: Constricted, Depressed - Speech Speech: Appropriate - Formal Thought Process Formal Thought Process: Hallucinations Psychotic Thoughts and Behaviors: +Intermittent AH of laughter - Suicidal Ideation Suicidal Ideation: Yes Plan: +Active ideation to jump off a building - Homicidal Ideation Homicidal Ideation: No Goal/Treatment Plan - Goal/Treatment Plan Need for Continued Stay: Remain at risks for inpatient hospitalization, Severe depression anxiety, Discharge may exacerbated symptoms Progress Toward Problem(s) and Goals/Treatment Plan: Bipolar Disorder w/ Psychotic Features; Opioid Use Disorder; Alcohol Use Disorder -Individual and group therapy -Taper Ativan; no current signs/symptoms of ETOH withdrawal -Thiamine, Folate -Medicine consult -Continue [place] -Increase Seroquel -Continue Trazodone -Psychoeducation -Disposition planning Estimated Date of D/C: 08/15/18
--- NOTE | 2018-08-11 08:50 | PCM.PYCHPN ---
Psychiatric Progress Note - Psychiatric Progress Note Patient seen today, length of contact: Pt evaluated, case discussed w/ team, chart reviewed Patient Chief Complaint: "I want to jump off a building." Problems Identified/Issues Discussed: Patient continues to report feeling depressed w/ active suicidal ideation to jump off a building if he were to be discharged from the hospital. He wrote a letter expressing his feelings, stating that he feels hopeless and that his only option is suicide. +Continued intermittent AH of laughter. No adverse effects to medications. No current signs/symptoms of ETOH withdrawal. Medication Change: Yes (Stop Ativan) Medical Record Reviewed: Yes Consults ordered or reviewed: Medicine consult Mental Status Examination - Cognitive Function Orientation: Person, Place, Situation, Time Memory: Intact Attention: WNL Concentration: WNL Association: WNL Fund of Knowledge: [facility] Decription of patient's judgement and insights: Poor I/J - Mood Mood: Depressed, Anxious - Affect Affect: Constricted, Depressed - Speech Speech: Appropriate - Formal Thought Process Formal Thought Process: Hallucinations Psychotic Thoughts and Behaviors: +Intermittent AH of laughter - Suicidal Ideation Suicidal Ideation: Yes Plan: Jump off a building - Homicidal Ideation Homicidal Ideation: No Goal/Treatment Plan - Goal/Treatment Plan Need for Continued Stay: Remain at risks for inpatient hospitalization, Severe depression anxiety, Discharge may exacerbated symptoms Progress Toward Problem(s) and Goals/Treatment Plan: Bipolar Disorder w/ Psychotic Features; Opioid Use Disorder; Alcohol Use Disorder -Individual and group therapy -Stop Ativan; no current signs/symptoms of ETOH withdrawal -Thiamine, Folate -Medicine consult -Continue [place], check Li level 08/14/18 -Continue Seroquel -Continue Trazodone -Psychoeducation -Disposition planning Estimated Date of D/C: 08/18/18
--- NOTE | 2018-08-12 11:13 | PCM.PYCHPN ---
Psychiatric Progress Note - Psychiatric Progress Note Patient seen today, length of contact: Pt evaluated, case discussed w/ team, chart reviewed Patient Chief Complaint: "I want to jump off a building." Problems Identified/Issues Discussed: No new events overnight. Patient continues to report feeling depressed w/ active suicidal ideation to jump off a building if he were to be discharged from the hospital. +Continued intermittent AH of laughter. No adverse effects to medications. No current signs/symptoms of ETOH withdrawal. Medication Change: No Medical Record Reviewed: Yes Consults ordered or reviewed: Medicine consult Mental Status Examination - Cognitive Function Orientation: Person, Place, Situation, Time Memory: Intact Attention: WNL Concentration: WNL Association: WN Fund of Knowledge: [facility] Decription of patient's judgement and insights: Poor I/J - Mood Mood: Depressed, Anxious - Affect Affect: Constricted, Depressed - Speech Speech: Appropriate - Formal Thought Process Formal Thought Process: Hallucinations Psychotic Thoughts and Behaviors: +Intermittent AH of laughter - Suicidal Ideation Suicidal Ideation: Yes - Homicidal Ideation Homicidal Ideation: No Goal/Treatment Plan - Goal/Treatment Plan Need for Continued Stay: Remain at risks for inpatient hospitalization, Severe depression anxiety, Discharge may exacerbated symptoms Progress Toward Problem(s) and Goals/Treatment Plan: Bipolar Disorder w/ Psychotic Features; Opioid Use Disorder; Alcohol Use Disorder -Individual and group therapy -Thiamine, Folate, MVI -Medicine consult -Continue [place], check Li level 08/14/18 -Continue Seroquel -Continue Trazodone -Psychoeducation -Disposition planning Estimated Date of D/C: 08/18/18
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
[2018-08-12] MEDS: Multivitamin With Minerals Tab PO SCH (14:34)
[2018-08-13] MEDS: Multivitamin With Minerals Tab PO SCH (08:19)
--- NOTE | 2018-08-13 09:28 | PCM.PYCHPN ---
Psychiatric Progress Note - Psychiatric Progress Note Patient seen today, length of contact: Pt evaluated, case discussed w/ team, chart reviewed Patient Chief Complaint: I still feel depressed and hear voices putting me down Problems Identified/Issues Discussed: pt evaluated , seen in bed, continues to report depressed mood , reported partial clearing of the auditory hallucinations , continues to hear voices putting him down , no side effects of medications ,denied command hallucinations, denied current S/H I DSM 5 Symptoms Update: bipolar disorder depressed polysubstance use disorder Medication Change: No Medical Record Reviewed: Yes Mental Status Examination - Cognitive Function Orientation: Person, Place, Situation, Time Memory: Intact Attention: WNL Concentration: WNL Association: WNL Fund of Knowledge: WNL - Mood Mood: Depressed, Anxious - Affect Affect: Constricted, Depressed - Speech Speech: Appropriate - Formal Thought Process Formal Thought Process: Hallucinations - Suicidal Ideation Suicidal Ideation: Yes - Homicidal Ideation Homicidal Ideation: No Goal/Treatment Plan - Goal/Treatment Plan Need for Continued Stay: Remain at risks for inpatient hospitalization, Severe depression anxiety, Discharge may exacerbated symptoms Progress Toward Problem(s) and Goals/Treatment Plan: continue current medications motivational, group and supportive therapy Estimated Date of D/C: 08/18/18
[2018-08-14 08:07] LABS: BASO # 0.2 K/uL (0.0-0.2); BASO % 2.1 % (0.0-2.0); EOS # 0.3 K/uL (0.0-0.7); EOS % 4.1 % (0.0-4.0); HEMOGLOBIN 14.1 g/dL (12.0-18.0); MEAN CELL VOLUME 95.6 fl (80.0-94.0); MEAN CORPUSCULAR HEMOGLOBIN 31.2 pg (27.0-31.0); MEAN CORPUSCULAR HGB CONC 32.7 g/dL (33.0-37.0); MONO # 0.9 K/uL (0.0-0.8); MONO % 11.9 % (0.0-10.0); NEUT # 4.1 K/uL (1.8-7.0); NEUT % 54.9 % (50.0-75.0); NRBC % 0.1 % (0.0-0.0); RBC 4.5 Mil/uL (4.40-5.90); RED CELL DISTRIBUTION WIDTH 15.9 % (11.5-14.5)
[2018-08-14 08:15] LABS: WHITE BLOOD COUNT 7.4 K/uL (4.8-10.8)
[2018-08-14 08:18] LABS: IRON 133 ug/dL (49-181)
[2018-08-14 08:24] LABS: ALBUMIN 3.9 g/dL (3.5-5.0); ALT/SGPT 80 U/L (21-72); AST/SGOT 33 U/L (17-59); BLOOD UREA NITROGEN 18 mg/dl (9-20); CALCIUM 9.5 mg/dL (8.4-10.2); GFR NON-AFRICAN AMERICAN > 60
[2018-08-14 08:28] LABS: % IRON SATURATION 42 % (20-55); TOTAL IRON BINDING CAPACITY 319 ug/dL (250-450)
[2018-08-14] MEDS: Multivitamin With Minerals Tab PO SCH (08:58)
--- NOTE | 2018-08-14 14:08 | PCM.PYCHPN ---
Psychiatric Progress Note - Psychiatric Progress Note Patient seen today, length of contact: Pt evaluated, case discussed w/ team, chart reviewed Patient Chief Complaint: I still feel depressed and hear voices putting me down Problems Identified/Issues Discussed: pt evaluated , seen in day room, continues to report depressed mood , reported partial clearing of the auditory hallucinations , continues to hear voices putting him down ,discussed lithium level 0.7 , no angelina to increase dose , no side effects of medications ,denied command hallucinations, denied current S/H I DSM 5 Symptoms Update: bipolar disorder depressed polysubstance use disorder Medication Change: No Medical Record Reviewed: Yes Mental Status Examination - Cognitive Function Orientation: Person, Place, Situation, Time Memory: Intact Attention: WNL Concentration: WNL Association: WNL Fund of Knowledge: WNL - Mood Mood: Depressed, Anxious - Affect Affect: Constricted, Depressed - Speech Speech: Appropriate - Formal Thought Process Formal Thought Process: Hallucinations - Suicidal Ideation Suicidal Ideation: Yes - Homicidal Ideation Homicidal Ideation: No Goal/Treatment Plan - Goal/Treatment Plan Need for Continued Stay: Remain at risks for inpatient hospitalization, Severe depression anxiety, Discharge may exacerbated symptoms Progress Toward Problem(s) and Goals/Treatment Plan: continue current medications, lithium level noted 0.7 motivational, group and supportive therapy Estimated Date of D/C: 08/18/18
[2018-08-15] MEDS: Multivitamin With Minerals Tab PO SCH (08:22)
--- NOTE | 2018-08-15 09:00 | PCM.PYCHPN ---
Psychiatric Progress Note - Psychiatric Progress Note Patient seen today, length of contact: Pt evaluated, case discussed w/ team, chart reviewed Patient Chief Complaint: "I want to jump off a building." Problems Identified/Issues Discussed: No new events over the weekend. Patient continues to report feeling depressed w/ active suicidal ideation to jump off a building if he were to be discharged from the hospital. +Continued intermittent AH of laughter. We discussed continued titration of Seroquel. No adverse effects to medications. Diagnostic Results: Li 0.7 on 08/14/18 Medication Change: Yes (Increase Seroquel) Medical Record Reviewed: Yes Consults ordered or reviewed: Medicine consult Mental Status Examination - Cognitive Function Orientation: Person, Place, Situation, Time Memory: Intact Attention: WNL Concentration: WNL Association: WNL Fund of Knowledge: WN Decription of patient's judgement and insights: Poor I/J - Mood Mood: Depressed, Anxious - Affect Affect: Constricted, Depressed - Speech Speech: Appropriate - Formal Thought Process Formal Thought Process: Hallucinations Psychotic Thoughts and Behaviors: +AH of laughter - Suicidal Ideation Suicidal Ideation: Yes - Homicidal Ideation Homicidal Ideation: No Goal/Treatment Plan - Goal/Treatment Plan Need for Continued Stay: Remain at risks for inpatient hospitalization, Severe depression anxiety, Discharge may exacerbated symptoms Progress Toward Problem(s) and Goals/Treatment Plan: Bipolar Disorder w/ Psychotic Features; Opioid Use Disorder; Alcohol Use Disorder -Individual and group therapy -Thiamine, Folate, MVI -Medicine consult -Continue [place], Li 0.7 on 08/14/18 -Increase Seroquel -Continue Trazodone -Psychoeducation -Disposition planning Estimated Date of D/C: 08/19/18
[2018-08-16] MEDS: Multivitamin With Minerals Tab PO SCH (09:13)
--- NOTE | 2018-08-16 09:27 | PCM.PYCHPN ---
Psychiatric Progress Note - Psychiatric Progress Note Patient seen today, length of contact: Pt evaluated, case discussed w/ team, chart reviewed Patient Chief Complaint: "I want to jump off a building." Problems Identified/Issues Discussed: Patient continues to report feeling depressed w/ active suicidal ideation to jump off a building. +Continued intermittent AH of laughter, worse in the morning. No adverse effects to medications. We discussed continued titration of [place]. Diagnostic Results: Li 0.7 on 08/14/18 Medication Change: Yes (Increase [place] starting tomorrow AM) Medical Record Reviewed: Yes Consults ordered or reviewed: Medicine consult Mental Status Examination - Cognitive Function Orientation: Person, Place, Situation, Time Memory: Intact Attention: WNL Concentration: WNL Association: WN Fund of Knowledge: [facility] Decription of patient's judgement and insights: Poor I/J - Mood Mood: Depressed, Anxious - Affect Affect: Constricted, Depressed - Speech Speech: Appropriate - Formal Thought Process Formal Thought Process: Hallucinations Psychotic Thoughts and Behaviors: +AH of laughter - Suicidal Ideation Suicidal Ideation: Yes Plan: Jump off a building - Homicidal Ideation Homicidal Ideation: No Goal/Treatment Plan - Goal/Treatment Plan Need for Continued Stay: Remain at risks for inpatient hospitalization, Severe depression anxiety, Discharge may exacerbated symptoms Progress Toward Problem(s) and Goals/Treatment Plan: Bipolar Disorder w/ Psychotic Features; Opioid Use Disorder; Alcohol Use Disorder -Individual and group therapy -Thiamine, Folate, MVI -Medicine consult -Increase [place] tomorrow AM -Continue Seroquel -Continue Trazodone -Psychoeducation -Disposition planning Estimated Date of D/C: 08/19/18
[2018-08-17] MEDS: Multivitamin With Minerals Tab PO SCH (08:58)
--- NOTE | 2018-08-17 10:01 | PCM.PYCHPN ---
Psychiatric Progress Note - Psychiatric Progress Note Patient seen today, length of contact: Pt evaluated, case discussed w/ team, chart reviewed Patient Chief Complaint: "I want to jump off a building." Problems Identified/Issues Discussed: Patient continues to report feeling depressed w/ intermittent thoughts of suicide, but states that his suicidal thoughts are less frequent. He denies current AH. No adverse effects to medications. We discussed continued tit ration of [place]. Diagnostic Results: Li 0.7 on 08/14/18 Medication Change: Yes (Increase [place]) Medical Record Reviewed: Yes Consults ordered or reviewed: Medicine consult Mental Status Examination - Cognitive Function Orientation: Person, Place, Situation, Time Memory: Intact Attention: WNL Concentration: WNL Association: WNL Fund of Knowledge: [facility] Decription of patient's judgement and insights: Poor I/J - Mood Mood: Depressed, Anxious - Affect Affect: Constricted, Depressed - Speech Speech: Appropriate - Formal Thought Process Formal Thought Process: No Impairment Psychotic Thoughts and Behaviors: No AH/VH/paranoia/delusions - Suicidal Ideation Suicidal Ideation: No - Homicidal Ideation Homicidal Ideation: No Goal/Treatment Plan - Goal/Treatment Plan Need for Continued Stay: Remain at risks for inpatient hospitalization, Severe depression anxiety, Discharge may exacerbated symptoms Progress Toward Problem(s) and Goals/Treatment Plan: Bipolar Disorder w/ Psychotic Features; Opioid Use Disorder; Alcohol Use Disorder -Individual and group therapy -Thiamine, Folate, MVI -Medicine consult -Increase [place] -Continue Seroquel -Continue Trazodone -Psychoeducation -Disposition planning Estimated Date of D/C: 08/22/18
[2018-08-18] MEDS: Multivitamin With Minerals Tab PO SCH (09:10)
--- NOTE | 2018-08-18 09:10 | PCM.PYCHPN ---
Psychiatric Progress Note - Psychiatric Progress Note Patient seen today, length of contact: Pt evaluated, case discussed w/ team, chart reviewed Patient Chief Complaint: "I want to jump off a building." Problems Identified/Issues Discussed: Patient continues to report feeling depressed, but denies feeling acutely suicidal. He denies current AH. No adverse effects to medications. Diagnostic Results: Li 0.7 on 08/14/18 Medication Change: No Medical Record Reviewed: Yes Consults ordered or reviewed: Medicine consult Mental Status Examination - Cognitive Function Orientation: Person, Place, Situation, Time Memory: Intact Attention: WNL Concentration: WNL Association: [facility] Fund of Knowledge: [facility] Decription of patient's judgement and insights: Poor I/J - Mood Mood: Depressed, Anxious - Affect Affect: Constricted, Depressed - Speech Speech: Appropriate - Formal Thought Process Formal Thought Process: No Impairment Psychotic Thoughts and Behaviors: No AH/VH/paranoia/delusions - Suicidal Ideation Suicidal Ideation: No - Homicidal Ideation Homicidal Ideation: No Goal/Treatment Plan - Goal/Treatment Plan Need for Continued Stay: Remain at risks for inpatient hospitalization, Severe depression anxiety, Discharge may exacerbated symptoms Progress Toward Problem(s) and Goals/Treatment Plan: Bipolar Disorder w/ Psychotic Features; Opioid Use Disorder; Alcohol Use Disorder -Individual and group therapy -Thiamine, Folate, MVI -Medicine consult -Increase [place] -Continue Seroquel -Continue Trazodone -Psychoeducation -Disposition planning Estimated Date of D/C: 08/22/18
[2018-08-19] MEDS: Multivitamin With Minerals Tab PO SCH (08:27)
--- NOTE | 2018-08-19 09:38 | PCM.PYCHPN ---
Psychiatric Progress Note - Psychiatric Progress Note Patient seen today, length of contact: Pt evaluated, case discussed w/ team, chart reviewed Patient Chief Complaint: Depression Problems Identified/Issues Discussed: Patient continues to report feeling depressed, but reports that his mood is starting to improve and that he feels more hopeful. She denies acute AH/VH/SI/HI. No adverse effects to medications. Diagnostic Results: Li 0.7 on 08/14/18 Medication Change: No Medical Record Reviewed: Yes Consults ordered or reviewed: Medicine consult Mental Status Examination - Cognitive Function Orientation: Person, Place, Situation, Time Memory: Intact Attention: WNL Concentration: WNL Association: [facility] Fund of Knowledge: [facility] Decription of patient's judgement and insights: Poor I/J - Mood Mood: Depressed, Anxious - Affect Affect: Constricted, Depressed - Speech Speech: Appropriate - Formal Thought Process Formal Thought Process: No Impairment Psychotic Thoughts and Behaviors: No AH/VH/paranoia/delusions - Suicidal Ideation Suicidal Ideation: No - Homicidal Ideation Homicidal Ideation: No Goal/Treatment Plan - Goal/Treatment Plan Need for Continued Stay: Remain at risks for inpatient hospitalization, Severe depression anxiety, Discharge may exacerbated symptoms Progress Toward Problem(s) and Goals/Treatment Plan: Bipolar Disorder w/ Psychotic Features; Opioid Use Disorder; Alcohol Use Disorder -Individual and group therapy -Thiamine, Folate, MVI -Medicine consult -Continue [place], will check Li level on 08/21/18 -Continue Seroquel -Continue Trazodone -Psychoeducation -Disposition planning Estimated Date of D/C: 08/22/18
[2018-08-20] MEDS: Multivitamin With Minerals Tab PO SCH (08:30)
--- NOTE | 2018-08-20 08:33 | PCM.PYCHPN ---
Psychiatric Progress Note - Psychiatric Progress Note Patient seen today, length of contact: Pt evaluated, case discussed w/ team, chart reviewed Patient Chief Complaint: Depression Problems Identified/Issues Discussed: Patient reports that his depression is improving. He is more hopeful and goal oriented. He denies acute suicidal ideation/plan/intent. He denies acute AH/VH. No adverse effects to medications. Diagnostic Results: Li 0.7 on 08/14/18 Medication Change: No Medical Record Reviewed: Yes Consults ordered or reviewed: Medicine consult Mental Status Examination - Cognitive Function Orientation: Person, Place, Situation, Time Memory: Intact Attention: WNL Concentration: WNL Association: [facility] Fund of Knowledge: [facility] Decription of patient's judgement and insights: Poor I/J - Mood Mood: Anxious - Affect Affect: Constricted - Speech Speech: Appropriate - Formal Thought Process Formal Thought Process: No Impairment Psychotic Thoughts and Behaviors: No AH/VH/paranoia/delusions - Suicidal Ideation Suicidal Ideation: No - Homicidal Ideation Homicidal Ideation: No Goal/Treatment Plan - Goal/Treatment Plan Need for Continued Stay: Remain at risks for inpatient hospitalization, Severe depression anxiety, Discharge may exacerbated symptoms Progress Toward Problem(s) and Goals/Treatment Plan: Bipolar Disorder w/ Psychotic Features; Opioid Use Disorder; Alcohol Use Disorder -Individual and group therapy -Thiamine, Folate, MVI -Medicine consult -Continue [place], will check Li level on 08/21/18 -Continue Seroquel -Continue Trazodone -Psychoeducation -Disposition planning Estimated Date of D/C: 08/22/18
[2018-08-21 07:03] LABS: BASO # 0.1 K/uL (0.0-0.2); BASO % 1.7 % (0.0-2.0); EOS # 0.9 K/uL (0.0-0.7); HEMOGLOBIN 13.4 g/dL (12.0-18.0); LYMPH # 1.8 K/uL (1.0-4.3); LYMPH % 23.1 % (20.0-40.0); MEAN CELL VOLUME 94.4 fl (80.0-94.0); MEAN CORPUSCULAR HEMOGLOBIN 31.6 pg (27.0-31.0); MEAN CORPUSCULAR HGB CONC 33.5 g/dL (33.0-37.0); MEAN PLATELET VOLUME 7.8 fl (7.2-11.7); MONO # 0.9 K/uL (0.0-0.8); NEUT # 4.1 K/uL (1.8-7.0); NEUT % 53.2 % (50.0-75.0); NRBC % 0.1 % (0.0-0.0); RBC 4.25 Mil/uL (4.40-5.90); RED CELL DISTRIBUTION WIDTH 15.1 % (11.5-14.5); WHITE BLOOD COUNT 7.8 K/uL (4.8-10.8)
[2018-08-21 07:16] LABS: ALBUMIN 3.8 g/dL (3.5-5.0); ALT/SGPT 49 U/L (21-72); AST/SGOT 28 U/L (17-59); BLOOD UREA NITROGEN 14 mg/dl (9-20); CALCIUM 9.3 mg/dL (8.4-10.2); GFR NON-AFRICAN AMERICAN > 60
[2018-08-21] MEDS: Multivitamin With Minerals Tab PO SCH (09:01)
--- NOTE | 2018-08-21 09:13 | PCM.PYCHPN ---
Psychiatric Progress Note - Psychiatric Progress Note Patient seen today, length of contact: Pt evaluated, case discussed w/ team, chart reviewed Patient Chief Complaint: Depression Problems Identified/Issues Discussed: Patient reports that he feels less depressed, more hopeful and more goal oriented. +Improved sleep/appetite. He denies acute suicidal ideation/plan/intent. He denies acute AH/VH. No adverse effects to medications. Diagnostic Results: Li 0.7 on 08/14/18, Li 1 on 08/21/18 Medication Change: No Medical Record Reviewed: Yes Consults ordered or reviewed: Medicine consult Mental Status Examination - Cognitive Function Orientation: Person, Place, Situation, Time Memory: Intact Attention: WNL Concentration: WNL Association: WNL Fund of Knowledge: [facility] Decription of patient's judgement and insights: Poor I/J - Mood Mood: Anxious - Affect Affect: Broad - Speech Speech: Appropriate - Formal Thought Process Formal Thought Process: No Impairment Psychotic Thoughts and Behaviors: No AH/VH/paranoia/delusions - Suicidal Ideation Suicidal Ideation: No - Homicidal Ideation Homicidal Ideation: No Goal/Treatment Plan - Goal/Treatment Plan Need for Continued Stay: Discharge may exacerbated symptoms Progress Toward Problem(s) and Goals/Treatment Plan: Bipolar Disorder w/ Psychotic Features; Opioid Use Disorder; Alcohol Use Disorder -Individual and group therapy -Thiamine, Folate, MVI -Medicine consult -Continue [place], Li 1 on 08/21/18 -Continue Seroquel -Continue Trazodone -Psychoeducation -Disposition planning- likely discharge tomorrow as patient continue to improve clinically Estimated Date of D/C: 08/22/18
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
[2018-08-22 06:24] VITALS: BP 104/61; PULSE 72; RESP 18; TEMP 97.1
--- NOTE | 2018-08-22 08:11 | PCM.PYCHDC ---
Mental Status Examination - Mental Status Examination Orientation: Person, Place, Situation, Time Memory: Intact Mood: Neutral Affect: Broad Speech: Appropriate Attention: WNL Concentration: WNL Association: [facility] Fund of Knowledge: WNL Formal Thought Process: No Impairment Description of patient's judgement and insight: Fair I/J Psychotic Thoughts and Behaviors: No AH/VH/paranoia/delusions Suicidal Ideation: No Current Homicidal Ideation?: No Discharge Summary - Discharge Note Reason for Hospitalization: HPI: 62 y/o male, w/ h/o bipolar disorder, alcohol use disorder, opioid use disorder, presents w/ worsening depression, anxiety and suicidal ideation in the context of non-compliance with medications and alcohol (BAL 170, drinks 1 quart vodka/day) and opioid abuse (4-5 bags of heroin/day). +Hopelessness +sleep/appetite disturbances. +AH of laughter. Denies AH/VH/paranoia/delusiosn. PPHx: Multiple past psychiatric admission and substance abuse rehabs. History of >3 suicide attempts PMHx: Hepatitis C, Arthritis, Chronic pain All: PCN FHx: Mother w/ Alzheimer dz, Father with "mood problems" and Brother with mental retardation. SHx: Father of 3 adults children that have no contact with patient for the past 10 years. No close family as patient stated he have two siblings that also have no contact with patient for many years. Daily ETOH use (1 quart vodka a day). Uses 4-5 bags of heroin/day; Legal charges in the past, such as DWI and possession of stolen property. On SSD. No cig use. Consultations:: List each consultation separately and include: 1. Reason for request. 2. Findings. 3. Follow-up Consultations: Medicine consult Summary of Hospital Course include:: 1. Description of specific treatment plan utilized for patients during their course of treatmen. 2. Summarize the time- course for resolution of acute symptoms and/or regressed behaviors. 3. Describe issues identified and worked on during hospitalization. 4. Describe medication utilized. 5. Describe medical problems identified and treated. 6. Reassessment of suicide risk Summary of Hospital Course: Patient was admitted to the psychiatry unit. Individual and group therapy were provided. Patient was stabilized on [place] 600 mg PO BID, Seroquel 40 mg PO HS, Trazodone 100 mg PO HS. He denies current depression/anxiety/AH/VH/SI/HI. He is currently psychiatrically stable for discharge w/ outpatient follow-up. - Diagnosis (1) Bipolar disorder Current Visit: No Status: Chronic (2) Alcohol use disorder, severe, dependence Current Visit: No Status: Chronic Priority: High (3) Opioid use disorder Current Visit: No Status: Chronic - Final Diagnosis (DSM 5) Condition upon Discharge: STABLE DSM 5: Bipolar Disorder w/ Psychotic Features; Opioid Use Disorder; Alcohol Use Disorder Disposition: HOME/ ROUTINE Follow-up Treatment Plan: Bipolar Disorder w/ Psychotic Features; Opioid Use Disorder; Alcohol Use Disorder -Individual and group therapy -Thiamine, Folate, MVI -Medicine consult -Continue [place], Li 1 on 08/21/18 -Continue Seroquel -Continue Trazodone -Psychoeducation on the dangers of substance abuse and the importance of compliance with treatment and medications -Patient is psychiatrically stable for discharge at this time Prescriptions/Medication Reconciliation: [place] Carbonate [[place] Carbonate 300MG] 600 mg PO BID #120 cap QUEtiapine [SEROquel] 400 mg PO HS #60 tab traZODone [Desyrel] 100 mg PO HS #30 tab - Smoking Cessation Smoking Cessation Medication prescribed: No Reason for not providing: Not indicated - Antipsychotic Medications Pt discharged on 2 or more routine antipsychotic medications: No
[2018-08-22] MEDS: Multivitamin With Minerals Tab PO SCH (08:18)
== END 2018-08-22 09:41 | disposition home or self-care (01) | DRG 885 ==
LOC: H.ER 18:48 → H.ERHOLD 08-04 04:44 → H.STEP 08-04 08:49
PROVIDERS: ADMIT Psychiatry & Neurology Psychiatry; ATTEND Psychiatry & Neurology Psychiatry
PROC: GZHZZZZ Group Psychotherapy (ICD-10-PCS; principal; 2018-08-04)
PROC: GZ58ZZZ Individual Psychotherapy, Cognitive-Behavioral (ICD-10-PCS; 2018-08-04)
DX: F31.5 Bipolar disorder, current episode depressed, severe, with psychotic features (principal); R45.851 Suicidal ideations; F11.23 Opioid dependence with withdrawal; F43.10 Post-traumatic stress disorder, unspecified; F10.229 Alcohol dependence with intoxication, unspecified; Y90.6 Blood alcohol level of 120-199 mg/100 ml; E78.00 Pure hypercholesterolemia, unspecified; G89.29 Other chronic pain; N40.0 Benign prostatic hyperplasia without lower urinary tract symptoms; F17.200 Nicotine dependence, unspecified, uncomplicated; Z91.5 Personal history of self-harm; Z91.14 Patient's other noncompliance with medication regimen; Z86.19 Personal history of other infectious and parasitic diseases; Z86.73 Personal history of transient ischemic attack (TIA), and cerebral infarction without residual deficits; Z88.0 Allergy status to penicillin

== ENCOUNTER 2018-11-19 18:53 | Inpatient (IN) | payer MEDICARE ==
[2018-11-19 18:53] VITALS: BMI 24.1
--- NOTE | 2018-11-19 20:30 | ED PDOC ---
HPI: Psych/Substance Abuse Time Seen by Provider: 11/19/18 19:29 Chief Complaint (Nursing): Psychiatric Evaluation Chief Complaint (Provider): Psychiatric Evaluation History Per: Patient History/Exam Limitations: no limitations Onset/Duration Of Symptoms: Days Current Symptoms Are (Timing): Still Present Suicide/Self Injury Attempted (Context): Other (Cut neck) Modifying Factor(s): Alcohol Additional Complaint(s): 63 y/o male with a PMHx of Bipolar Disorder, Depression, Paranoia, and PTSD presents to the ED for evaluation of a suicidal attempt. Patient reports of attempting to kill himself but cutting his neck with his keys. Of note, patient is well known to ED staff and provider for frequent visits and alcoholism. PMD: Non [facility] Provider Past Medical History Reviewed: Historical Data, Nursing Documentation, Vital Signs Vital Signs: Last Vital Signs Temp 98.8 F 11/19/18 18:59 Pulse 100 H 11/19/18 18:59 Resp 18 11/19/18 18:59 BP 160/105 H 11/19/18 18:59 Pulse Ox 100 11/19/18 18:59 - Medical History PMH: Anxiety, Arthritis, Benign Prostatic Hyperplasia, Bipolar Disorder, CVA, Depression, Hypercholesterolemia, Paranoia, Pneumonia, Post Traumatic Stress Disorder, Seizures (etoh abuse) Denies: Asthma, Bronchitis, COPD, Diabetes, Emphysema, Hepatitis, HIV, HTN, Pulmonary Embolism, Chronic Kidney Disease, Sexually Transmitted Disease, Sleep Apnea Comment Only: Schizophrenia (per old chart but pt denies) - Surgical History Surgical History: Appendectomy, Endoscopy, Tonsillectomy - Family History Family History: States: Unknown Family Hx - Immunization History Hx Tetanus Toxoid Vaccination: Yes Hx Influenza Vaccination: Yes Hx Pneumococcal Vaccination: No - Home Medications Home Medications: Ambulatory Orders Medication Instructions Recorded RX: Folic Acid 1 mg PO DAILY tab 08/21/18 RX: [place] Carbonate [[place] 600 mg PO BID #120 cap 08/21/18 Carbonate 300MG] RX: Multimineral/Multivitamin 1 tab PO DAILY tab 08/21/18 [Therapeutic-M Tab] RX: QUEtiapine [SEROquel] 400 mg PO HS #60 tab 08/21/18 RX: Thiamine [Vitamin B1 Tab] 100 mg PO DAILY tab 08/21/18 RX: Gabapentin [Neurontin] 300 mg PO BID #60 cap 09/29/18 RX: QUEtiapine [SEROquel] 200 mg PO HS #30 tab 09/29/18 RX: Sertraline [Zoloft] 50 mg PO DAILY #30 tab 09/29/18 RX: traZODone [Desyrel] 100 mg PO HS #30 tab 09/29/18 Buprenorphine HCl/Naloxone HCl 3 film PO DAILY 11/19/18 [Suboxone 4 mg-1 mg Sl Film] - Allergies Allergies/Adverse Reactions: Allergies Allergy/AdvReac Type Severity Reaction Status Date / Time Penicillins Allergy convulsions Verified 08/03/18 18:55 Review of Systems ROS Statement: Except As Marked, All Systems Reviewed And Found Negative Psych: Positive for: Suicidal ideation (With attempt) Physical Exam - Reviewed Nursing Documentation Reviewed: Yes Vital Signs Reviewed: Yes - Physical Exam Appears: Positive for: No Acute Distress Head Exam: Positive for: ATRAUMATIC, NORMOCEPHALIC Skin: Positive for: Normal Color, Warm, Dry Eye Exam: Positive for: Normal appearance, EOMI, PERRL Neck: Positive for: Normal, Painless ROM, Supple Cardiovascular/Chest: Positive for: Regular Rate, Rhythm. Negative for: Murmur Respiratory: Positive for: Normal Breath Sounds. Negative for: Respiratory Distress Gastrointestinal/Abdominal: Positive for: Normal Exam, Soft. Negative for: Tenderness Extremity: Positive for: Normal ROM. Negative for: Deformity Neurologic/Psych: Positive for: Alert, Oriented, Other (mildly slurred speech). Negative for: Motor/Sensory Deficits - Laboratory Results Result Diagrams: 11/19/18 21:30 11/20/18 06:05 - ECG O2 Sat by Pulse Oximetry: 100 (RA) Pulse Ox Interpretation: Normal Medical Decision Making Medical Decision Making: Time: 1936 Impression: 63 y/o male presenting with a suicidal attempt Plan: -- Alcohol Serum -- CMP -- Urine Drug Screen -- [place] -- Crisis Evaluation -- ED Urine Dipstick -- CBC with Differentials -- 1:1 Observation -- Accucheck -- Urinalysis 22:15 Labs reviewed and reveal no clinically significant abnormalities. Patient was evaluated by crisis and will be admitted due to depression and bipolar disorder. He is medically stable for psychiatric admission. Scribe Attestation: Documented by Toyin Fernández, acting as a scribe for Isaías Feliciano MD. Provider Scribe Attestation: All medical record entries made by the Scribe were at my direction and personally dictated by me. I have reviewed the chart and agree that the record accurately reflects my personal performance of the history, physical exam, medical decision making, and the department course for this patient. I have also personally directed, reviewed, and agree with the discharge instructions and disposition. Disposition - Clinical Impression Clinical Impression: Major depressive disorder - Patient ED Disposition Is Patient to be Admitted: No - Disposition Disposition Time: 21:00 Condition: STABLE
[2018-11-19 21:39] LABS: URINE BILIRUBIN NEGATIVE (NEGATIVE); URINE BLOOD SMALL (NEGATIVE); URINE CLARITY CLEAR (Clear); URINE COLOR YELLOW (YELLOW); URINE GLUCOSE (UA) NEG (NEGATIVE); URINE LEUKOCYTE ESTERASE NEG Leu/uL (Negative); URINE PROTEIN 30 mg/dL (NEGATIVE); URINE UROBILINOGEN 0.2-1.0 mg/dL (0.2-1.0)
[2018-11-19 21:42] LABS: BASO # 0.1 K/uL (0.0-0.2); BASO % 0.9 % (0.0-2.0); EOS # 0.2 K/uL (0.0-0.7); EOS % 2.4 % (0.0-4.0); HEMOGLOBIN 14.3 g/dL (12.0-18.0); LYMPH # 3.4 K/uL (1.0-4.3); LYMPH % 41.1 % (20.0-40.0); MEAN CELL VOLUME 93.5 fl (80.0-94.0); MEAN CORPUSCULAR HGB CONC 33.2 g/dL (33.0-37.0); MONO % 12.2 % (0.0-10.0); NEUT # 3.6 K/uL (1.8-7.0); NEUT % 43.4 % (50.0-75.0); NRBC % 0.2 % (0.0-0.0); RBC 4.62 Mil/uL (4.40-5.90); RED CELL DISTRIBUTION WIDTH 15.5 % (11.5-14.5); WHITE BLOOD COUNT 8.2 K/uL (4.8-10.8)
[2018-11-19 21:54] LABS: ALB/GLOB RATIO 0.9 (1.0-2.1); ALBUMIN 4.3 g/dL (3.5-5.0); ALT/SGPT 101 U/L (21-72); AST/SGOT 76 U/L (17-59); BLOOD UREA NITROGEN 11 mg/dl (9-20); CALCIUM 9.4 mg/dL (8.4-10.2); GFR NON-AFRICAN AMERICAN > 60
[2018-11-19 21:58] LABS: BARBITURATES, UR NEGATIVE (NEGATIVE); BENZODIAZEPINES, UR NEGATIVE (NEGATIVE); OPIATES, UR NEGATIVE (NEGATIVE); PHENCYCLIDINE, UR NEGATIVE (NEGATIVE)
[2018-11-19 23:30] VITALS: O2SAT 100
[2018-11-20] MEDS ORDERED: Magnesium Hydroxide Susp 30 ml UD PO PRN (01:23)
[2018-11-20] MEDS ORDERED: Alum-Mag Hydrox-Simethicone Susp (30 mL) PO PRN (01:23)
[2018-11-20] MEDS ORDERED: Bismuth Subsalicylate 262 mg/15 ml Sus (240 ml) PO PRN (01:23)
--- NOTE | 2018-11-20 02:20 | PCM.BM ---
<KalAbdi wolf - Last Filed: 11/20/18 02:18> Treatment Plan Problems - Problems identified on initial assessmt Self Harm Date Initiated: 11/20/18 Time Initiated: 02:18 Assessment reference: NA Status: Active Suicidal Ideation Date Initiated: 11/20/18 Time Initiated: 02:19 Assessment reference: NA Status: Active Medication nonadherence Date Initiated: 11/20/18 Time Initiated: 02:19 Assessment reference: NA Status: Active Defensive Coping Date Initiated: 11/20/18 Time Initiated: 02:19 Assessment reference: NA Status: Active Anxiety Date Initiated: 11/20/18 Time Initiated: 02:19 Assessment reference: NA Status: Active Hopelessness/Helplessness Date Initiated: 11/20/18 Time Initiated: 02:20 Assessment reference: NA Status: Active Treatment assets and liabiliti Patient Assests: cooperative, self-reliant, ADL independent, negotiates basic needs, good interpersonal skills Patient Liabilities: physical pain, poor support system, relationship conflicts, substance abuse, medical problems - Milieu Protocol Maintain good personal hygiene: every shift Encourage regular showers, every shift Remind patient to perform daily oral care, every shift Assist patient to perform ADL's Maintain personal safety: daily Educate patient to report safety concerns to staff, daily Monitor environment for contraband/sharps Medication safety: Monitor for expected outcome, potential side effects: daily, Assess barriers to learning: daily, Assess readiness for medication education: daily <Jannette Joaquin - Last Filed: 11/21/18 07:34> - Diagnosis (1) Bipolar disorder Status: Chronic Interventions: Medication management, Individual and group therapy, Psychoeducation 11/21/18 07:34 (2) Alcohol use disorder, severe, dependence Status: Chronic Interventions: Medication management, Individual and group therapy, Psychoeducation 11/21/18 07:35 <Nicolle Morillo - Last Filed: 11/22/18 09:24> Family Contact Family involvement: Famliy/SO not involved Discharge/Continuing Care - Education Needs Education Needs: Patient Medication, Patient Diagnosis/Disease Process, Patient Coping Skills, Patient Placement options, Patient Community resources, Patient Activities of Daily Living, Patient Nutrition, Patient Uses of Medical Equipment, Patient Health Practices/Safety, Patient Personal Hygiene/Grooming, Patient Aftercare Safety Plan - Discharge Discharge Criteria: Tolerates medication w/o severe side effects, Free of Suicidal thoughts, Normal sleep pattern, Ability to care for self, Reduction of target symptoms Discharge to:: Home - Additional Comments 11/22/18 09:13 Pt seen and discussed in team meeting. Reason for hospitalization reviewed and discussed. Pt reported he was referred to the ED because "I started to drink again and i was getting sick." Pt reported since last discharge he went to [place] and stayed at [facility] for 2 weeks. Pt reported short period of sobriety. Pt reported he resides in [place] and has a roommate who is substance abuse free. Pt reported he began to consume alcohol again which led to him feeling depressed. Pt reported eh has stomach ulcers; psycho-education provided by matt carcamo MD with risk of consuming alcohol with ulcers. Pt verbalized understanding of same. Pt reported that prior to hospitalization he consumed vodka and some beers. Pt reported consuming alcohol daily. Pt denied SI and HI. Pt denied AVH. Pt denied any paranoia. During team meeting reported feeling "pretty good. I just came here for a couple of days." Pt verbalized that he would like to get discharged on , November 24. Pt's medical and social issues reviewed and discussed. Pt's medications reviewed. SW to continue to follow case. 11/22/18 09:24 Pt reported having no collateral information. Pt reported he does not communicate with his family. - Treatment Team Participation Discussed with Family/SO: No Was Patient/Family/SO present at Treatment Team Meeting: Yes
[2018-11-20] MEDS ORDERED: Pneumococcal 23-Valent Vaccine IM ONE (03:59)
[2018-11-20 07:18] LABS: LDL CHOLESTEROL 92 mg/dL (0-129)
[2018-11-20 07:24] LABS: IRON 158 ug/dL (49-181)
[2018-11-20 07:35] LABS: % IRON SATURATION 47 % (20-55); TOTAL IRON BINDING CAPACITY 333 ug/dL (250-450)
[2018-11-20 07:44] LABS: ALB/GLOB RATIO 0.9 (1.0-2.1); ALBUMIN 4.1 g/dL (3.5-5.0); ALT/SGPT 102 U/L (21-72); AST/SGOT 70 U/L (17-59); BLOOD UREA NITROGEN 11 mg/dl (9-20); CALCIUM 9.4 mg/dL (8.4-10.2); GFR NON-AFRICAN AMERICAN > 60; HDL CHOLESTEROL 36 MG/DL (30-70)
[2018-11-20] MEDS: Multivitamin With Minerals Tab PO SCH (09:04)
[2018-11-20] MEDS: Pantoprazole 40 mg EC Tab PO SCH (09:05)
--- NOTE | 2018-11-20 11:02 | RAD ---
Date of service: 11/19/2018 HISTORY: Admission. COMPARISON: 08/03/2018 FINDINGS: LUNGS: No active pulmonary disease. PLEURA: No significant pleural effusion identified, no pneumothorax apparent. CARDIOVASCULAR: No atherosclerotic calcification present No radiographic findings to suggest acute or significant cardiovascular disease. OSSEOUS STRUCTURES: No significant abnormalities. VISUALIZED UPPER ABDOMEN: Normal. OTHER FINDINGS: None. IMPRESSION: No active disease. No significant interval change compared to the prior examination(s).
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
[2018-11-20 12:22] LABS: FOLATE > 20.0 ng/mL
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
--- NOTE | 2018-11-21 08:06 | PCM.PYCHPN ---
Psychiatric Progress Note - Psychiatric Progress Note Patient seen today, length of contact: Pt evaluated, case discussed w/ team, chart reviewed Patient Chief Complaint: "I'm depressed." Problems Identified/Issues Discussed: Patient continues to report feeling depressed and anxious. He is able to contract for safety at this time and denies acute suicidal ideation/plan/intent. He discussed how he relapsed on alcohol and stopped taking his medications. We discussed the importance of compliance with treatment and medications. We discussed the dangers of alcohol abuse. No current signs/symptoms of ETOH withdrawal. Medication Change: Yes (Restart Trazodone; Taper Ativan) Medical Record Reviewed: Yes Consults ordered or reviewed: Medicine consult Mental Status Examination - Cognitive Function Orientation: Person, Place, Situation, Time Memory: Intact Attention: WNL Concentration: WNL Association: WNL Fund of Knowledge: [facility] Decription of patient's judgement and insights: Improving I/J - Mood Mood: Depressed, Anxious - Affect Affect: Constricted - Speech Speech: Appropriate - Formal Thought Process Formal Thought Process: No Impairment Psychotic Thoughts and Behaviors: Denies AH/VH/paranoia/delusions - Suicidal Ideation Suicidal Ideation: No - Homicidal Ideation Homicidal Ideation: No Goal/Treatment Plan - Goal/Treatment Plan Need for Continued Stay: Remain at risks for inpatient hospitalization, Severe depression anxiety Progress Toward Problem(s) and Goals/Treatment Plan: Bipolar Disorder; Alcohol Use Disorder -Taper Ativan; continue to monitor for signs/symptoms of ETOH withdrawal -Thiamine Folate -Restart Trazodone -Continue Seroquel and Zoloft -Individual and group therapy -Medicine consult -Motivational Interviewing -Disposition planning Estimated Date of D/C: 11/24/18
[2018-11-21] MEDS: Multivitamin With Minerals Tab PO SCH (08:40)
[2018-11-21] MEDS: Pantoprazole 40 mg EC Tab PO SCH (08:41)
--- NOTE | 2018-11-21 17:02 | CARD ---
APPROVED REPORT Date of service: 11/21/2018 EKG Measurement Heart [id number] <Conclusion> Normal sinus rhythm Minimal voltage criteria for LVH, may be normal variant Borderline ECG
[2018-11-22] MEDS: Multivitamin With Minerals Tab PO SCH (08:41)
[2018-11-22] MEDS: Pantoprazole 40 mg EC Tab PO SCH (08:41)
--- NOTE | 2018-11-22 08:43 | PCM.PYCHPN ---
Psychiatric Progress Note - Psychiatric Progress Note Patient seen today, length of contact: Pt evaluated, case discussed w/ team, chart reviewed Patient Chief Complaint: "I'm depressed." Problems Identified/Issues Discussed: Patient is requesting to be discharged on . He states that his mood is improving. He denies acute AH/VH/SI/HI. He denies current signs/symptoms of ETOH withdrawal. We discussed the importance of compliance with treatment and medications. We discussed the dangers of alcohol abuse. Medication Change: No (Taper/Stop Ativan) Medical Record Reviewed: Yes Consults ordered or reviewed: Medicine consult Mental Status Examination - Cognitive Function Orientation: Person, Place, Situation, Time Memory: Intact Attention: WNL Concentration: WNL Association: WNL Fund of Knowledge: [facility] Decription of patient's judgement and insights: Improving I/J - Mood Mood: Depressed - Affect Affect: Constricted - Speech Speech: Appropriate - Formal Thought Process Formal Thought Process: No Impairment Psychotic Thoughts and Behaviors: Denies AH/VH/paranoia/delusions - Suicidal Ideation Suicidal Ideation: No - Homicidal Ideation Homicidal Ideation: No Goal/Treatment Plan - Goal/Treatment Plan Need for Continued Stay: Remain at risks for inpatient hospitalization, Severe depression anxiety Progress Toward Problem(s) and Goals/Treatment Plan: Bipolar Disorder; Alcohol Use Disorder -Taper and stop Ativan; no current signs/symptoms of ETOH withdrawal; can also give Ativan PRN if needed -Thiamine Folate -Continue Seroquel, Trazodone and Zoloft -Individual and group therapy -Medicine consult -Motivational Interviewing -Disposition planning- patient requesting to be discharged on Estimated Date of D/C: 11/24/18
[2018-11-23] MEDS: Pantoprazole 40 mg EC Tab PO SCH (08:14)
[2018-11-23] MEDS: Multivitamin With Minerals Tab PO SCH (08:15)
--- NOTE | 2018-11-23 08:35 | PCM.PYCHPN ---
Psychiatric Progress Note - Psychiatric Progress Note Patient seen today, length of contact: Pt evaluated, case discussed w/ team, chart reviewed Patient Chief Complaint: "I'm feeling better." Problems Identified/Issues Discussed: Patient reports that his mood continued to improve. He is requesting to be discharged tomorrow. He discussed his plan to try to stay sober upon discharge. Psychoeducation and motivational interviewing provided. Patient expressed increased motivation to try to follow-up without patient treatment. He denies acute AH/VH/SI/HI. He denies current signs/symptoms of ETOH withdrawal. Medication Change: No Medical Record Reviewed: Yes Consults ordered or reviewed: Medicine consult Mental Status Examination - Cognitive Function Orientation: Person, Place, Situation, Time Memory: Intact Attention: WNL Concentration: WNL Association: WNL Fund of Knowledge: [facility]N Decription of patient's judgement and insights: Improving I/J - Mood Mood: Depressed - Affect Affect: Broad - Speech Speech: Appropriate - Formal Thought Process Formal Thought Process: No Impairment Psychotic Thoughts and Behaviors: Denies AH/VH/paranoia/delusions - Suicidal Ideation Suicidal Ideation: No - Homicidal Ideation Homicidal Ideation: No Goal/Treatment Plan - Goal/Treatment Plan Need for Continued Stay: Severe depression anxiety Progress Toward Problem(s) and Goals/Treatment Plan: Bipolar Disorder; Alcohol Use Disorder -No current signs/symptoms of ETOH withdrawal; Ativan PRN available if needed -Thiamine Folate -Continue Seroquel, Trazodone and Zoloft -Individual and group therapy -Medicine consult -Motivational Interviewing -Disposition planning- discharge tomorrow if patient continues to improve clinically Estimated Date of D/C: 11/24/18
[2018-11-24 06:20] VITALS: BP 102/65; PULSE 80; RESP 18; TEMP 97.1
[2018-11-24] MEDS: Multivitamin With Minerals Tab PO SCH (08:25)
[2018-11-24] MEDS: Pantoprazole 40 mg EC Tab PO SCH (08:26)
--- NOTE | 2018-11-24 08:32 | PCM.PYCHDC ---
Mental Status Examination - Mental Status Examination Orientation: Person, Place, Situation, Time Memory: Intact Mood: Neutral Affect: Broad Speech: Appropriate Attention: WNL Concentration: WNL Association: WNL Fund of Knowledge: WNL Formal Thought Process: No Impairment Description of patient's judgement and insight: Good I/J Psychotic Thoughts and Behaviors: Denies AH/VH/paranoia/delusions Suicidal Ideation: No Current Homicidal Ideation?: No Discharge Summary - Discharge Note Reason for Hospitalization: Pt is a 63 yo M with a pmhx alcohol and heroin abuse, Hepatitis C, Bipolar, Depression, PTSD admitted to psych unit due to suicidal ideation, pt was not taking his medications for 2 weeks and was drinking alcohol daily. Today he states that his depression has improved since admission, denies HI. Denies auditory or visual hallucinations. Reports nausea, abdominal pain. Denies headache, blurry vision, SOB, chest pain, reflux, V/D/C, or dysuria. PMHX: Alcohol and heroin abuse, Hepatitis C, Bipolar, PTSD Meds: Seroquel, Trazadone, Neurontin, antidepressant (unknown name) Allergies: PCN- seizure FHX: Gma- lymphoma, Mom- Alzheimer, GPA- stomach cancer Social: Nonsmoker, Alcohol- pint of vodka/day, few beers, hx of heroin use (last used 4 mo ago), Retired SurgHx: Appendectomy, tonsillectomy, R knee Psychiatric History (includes Medical, Family, Personal Hx): for bipolar disorder,alcohol and opiod abuse Consultations:: List each consultation separately and include: 1. Reason for request. 2. Findings. 3. Follow-up Consultations: Medicine consult Summary of Hospital Course include:: 1. Description of specific treatment plan utilized for patients during their course of treatmen. 2. Summarize the time- course for resolution of acute symptoms and/or regressed behaviors. 3. Describe issues identified and worked on during hospitalization. 4. Describe medication utilized. 5. Describe medical problems identified and treated. 6. Reassessment of suicide risk Summary of Hospital Course: Patient was admitted to the psychiatry unit. Individual and group therapy were provided. Patient was stabilized on Seroquel, Trazodone and Zoloft. Psychoeducation provided on the dangers of substance abuse and the importance of compliance with treatment and medications. Patient denies acute depression/anxiety/AH/VH/SI/HI. He is psychiatrically stable for discharge at this time. - Diagnosis (1) Bipolar disorder Current Visit: No Status: Chronic (2) Alcohol use disorder, severe, dependence Current Visit: No Status: Chronic Priority: High - Final Diagnosis (DSM 5) Condition upon Discharge: STABLE DSM 5: Bipolar Disorder; Alcohol Use Disorder; Opioid Use Disorder (in early remission) Disposition: HOME/ ROUTINE Follow-up Treatment Plan: Bipolar Disorder; Alcohol Use Disorder -Thiamine Folate -Continue Seroquel, Trazodone and Zoloft -Discharge with outpatient follow-up Prescriptions/Medication Reconciliation: Folic Acid 1 mg PO DAILY #30 tab Gabapentin [Neurontin] 300 mg PO BID #60 cap Pantoprazole [Protonix EC Tab] 40 mg PO DAILY #30 ect QUEtiapine [SEROquel] 300 mg PO HS #30 tab Sertraline [Zoloft] 50 mg PO DAILY #30 tab Thiamine [Vitamin B1 Tab] 100 mg PO DAILY #30 tab traZODone [Desyrel] 100 mg PO HS #30 tab - Smoking Cessation Smoking Cessation Medication prescribed: No Reason for not providing: Not indicated - Antipsychotic Medications Pt discharged on 2 or more routine antipsychotic medications: No
== END 2018-11-24 10:00 | disposition home or self-care (01) | DRG 885 ==
LOC: H.ER 18:53 → H.STEP 22:14
PROVIDERS: ADMIT Psychiatry & Neurology Psychiatry; ATTEND Psychiatry & Neurology Psychiatry
PROC: GZHZZZZ Group Psychotherapy (ICD-10-PCS; principal; 2018-11-19)
PROC: GZ58ZZZ Individual Psychotherapy, Cognitive-Behavioral (ICD-10-PCS; 2018-11-19)
DX: F31.4 Bipolar disorder, current episode depressed, severe, without psychotic features (principal); R45.851 Suicidal ideations; F10.229 Alcohol dependence with intoxication, unspecified; Y90.4 Blood alcohol level of 80-99 mg/100 ml; F11.11 Opioid abuse, in remission; F43.10 Post-traumatic stress disorder, unspecified; B19.20 Unspecified viral hepatitis C without hepatic coma; F41.9 Anxiety disorder, unspecified; E78.00 Pure hypercholesterolemia, unspecified; Z86.73 Personal history of transient ischemic attack (TIA), and cerebral infarction without residual deficits; Z88.0 Allergy status to penicillin; Z87.11 Personal history of peptic ulcer disease